=== PATIENT | female | born 1995 | race Caucasian/White ===

== ENCOUNTER 2017-01-05 17:34 | Emergency (ER) | payer OTHER ==
[2017-01-05 19:02] VITALS: BP 115/68; PULSE 83; RESP 18; TEMP 98.3
--- NOTE | 2017-01-05 19:08 | ED ---
General Adult HPI - General Chief complaint: Extremity Injury, Upper Stated complaint: ihs- crushing injury Time Seen by Provider: 01/05/17 19:02 Source: patient, RN notes reviewed Mode of arrival: ambulatory Limitations: no limitations - History of Present Illness Initial comments: 21-year-old female presents to the emergency department the chief complaint of bilateral index finger injury. Patient states that she got her fingers caught underneath a [place] lift today at work at work that her in to be seen. Patient states the top of both her index fingers have some discomfort. She is able to move them. There is no throbbing. Patient denies any numbness or tingling. Patient was concerned due to the continued pain and work made her come in so she is here to be seen. Pain is mild.Patient denies any recent fever, chills, shortness of breath, chest pain, back pain, abdominal pain, nausea vomiting, numbness or tingling, dysuria or hematuria, constipation or diarrhea, headaches or visual changes, or any other current symptoms. - Related Data Home Medications Medication Instructions Recorded Confirmed No Known Home Medications [No 01/05/17 01/05/17 Known Home Medications] Allergies Allergy/AdvReac Type Severity Reaction Status Date / Time No Known Allergies Allergy Verified 01/05/17 19:21 Review of Systems ROS Statement: Those systems with pertinent positive or pertinent negative responses have been documented in the HPI. ROS Other: All systems not noted in ROS Statement are negative. Past Medical History Past Medical History: No Reported History History of Any Multi-Drug Resistant Organisms: None Reported Past Surgical History: No Surgical Hx Reported Past Psychological History: No Psychological Hx Reported Smoking Status: Never smoker Past Alcohol Use History: None Reported Past Drug Use History: None Reported General Exam - General Exam Comments Initial Comments: General: The patient is awake and alert, in no distress, and does not appear acutely ill. Neck: The neck is supple, there is no tenderness. Cardiovascular: There is a regular rate and rhythm. No murmur, rub or gallop is appreciated. Respiratory: Lungs are clear to auscultation, respirations are non-labored, breath sounds are equal. No wheezes, stridor, rales, or rhonchi. Musculoskeletal: Sensation intact with 2+ pulses at bilateral upper extremityfull range of motion of bilateral hands and all digits. Patient has minimal superficial tenderness to the distal aspect of the bilateral index fingers.Neurological: CN II-XII intact, There are no obvious motor or sensory deficits. Coordination appears grossly intact. Speech is normal. Skin: Skin is warm and dry and no rashes or lesions are noted. Psychiatric: Normal mood and affect. Limitations: no limitations Course Vital Signs 01/05/17 19:00 Temperature 98.3 F Pulse Rate 83 Respiratory 18 Rate Blood Pressure 115/68 O2 Sat by Pulse 97 Oximetry Medical Decision Making - Medical Decision Making 21-year-old female presents to the emergency department with a chief complaint of bilateral finger contusion. This time we discussed care we discussed follow- up we discussed return parameters all patient's questions. She stated she understood and she is in agreement with this plan. She will be discharged. - Radiology Data Radiology results: image reviewed Interpreted by me: Interpreted by me: Bilateral index finger xray: 5 view, no fracture, no dislocation, no bony lesions, no foreign bodies, no soft tissue damage. Waiting official radiology read. Disposition Clinical Impression: Finger contusion Disposition: HOME SELF-CARE Condition: Stable Instructions: Contusion in Adults (ED) Additional Instructions: Please use medication as discussed. Please follow up with family doctor if symptoms have not improved over the next two days. Please return to the emergency room if your symptoms increase or worsen or for any other concerns. Referrals: Gina Doss DO [Primary Care Provider] - 1-2 days Time of Disposition: 19:42
--- NOTE | 2017-01-05 20:18 | XR ---
EXAMINATION TYPE: XR finger or thumb bilateral DATE OF EXAM: 01/05/2017 COMPARISON: NONE HISTORY: Pain TECHNIQUE: 6 views FINDINGS: 3 views of each index finger were obtained. I see no fracture nor dislocation. Joint spaces are normal. There are no erosions. IMPRESSION: Normal exam. No sign of inflammatory arthritis.
== END 2017-01-05 19:54 | disposition home or self-care (01) ==
LOC: MERGE 17:34 → EC 17:34
DX: S60.022A Contusion of left index finger without damage to nail, initial encounter (principal); S60.021A Contusion of right index finger without damage to nail, initial encounter; W23.0XXA Caught, crushed, jammed, or pinched between moving objects, initial encounter; Y93.89 Activity, other specified; Y92.69 Other specified industrial and construction area as the place of occurrence of the external cause; Y99.0 Civilian activity done for income or pay
CPT/HCPCS: 99283

== ENCOUNTER 2017-04-21 21:13 | Emergency (ER) | payer OTHER ==
[2017-04-21] MEDS ORDERED: SODIUM CHLORIDE 0.9% 500 ML IV ONE (22:33)
[2017-04-21 23:10] LABS: Basophils % (A) 1 %; Eosinophils # (A) 0.1 k/uL (0-0.7); Eosinophils % (A) 1 %; HCT 38.5 % (34.0-46.0); Lymphocytes # (A) 2.3 k/uL (1.0-4.8); Lymphocytes % (A) 36 %; MCH 29.6 pg (25.0-35.0); MCHC 33.7 g/dL (31.0-37.0); Mean Platelet Volume 6.5; Monocytes # (A) 0.2 k/uL (0-1.0); Monocytes % (A) 4 %; Neutrophils # (A) 3.6 k/uL (1.3-7.7); Neutrophils % (A) 56 %; Platelet Count 318 k/uL (150-450); RBC 4.38 m/uL (3.80-5.40); RDW 12.2 % (11.5-15.5); WBC 6.3 k/uL (4.0-11.0)
[2017-04-21 23:16] LABS: Appearance,Urine Cloudy (Clear); Bacteria,Urine Occasional /hpf; Bilirubin,Urine Negative (Negative); Blood,Urine Moderate (Negative); Cellular Casts,Urine 1 /lpf (0); Color,Urine Yellow; Glucose,Urine (UA) Negative (Negative); Granular Casts,Urine 1 /lpf (0); Hyaline Casts,Urine 7 /lpf (0-2); Ketones,Urine Negative (Negative); Leukocyte Esterase,Urine Negative (Negative); Mucus,Urine Few /hpf; Nitrite,Urine Negative (Negative); Protein,Urine 3+ (Negative); RBC,Urine 46 /hpf (0-5); Specific Gravity,Urine 1.022 (1.001-1.035); Squamous Epithelial Cell,Urine 7 /hpf (0-4); Urobilinogen,Urine <2.0 mg/dL (<2.0); WBC,Urine 9 /hpf (0-5)
[2017-04-21 23:28] LABS: ALT 24 U/L (9-52); AST 19 U/L (14-36); Albumin 2.4 g/dL (3.5-5.0); Alkaline Phosphatase 68 U/L (38-126); Amylase 44 U/L (30-110); Anion Gap 2 mmol/L; Blood Urea Nitrogen 17 mg/dL (7-17); Calcium 8.4 mg/dL (8.4-10.2); Carbon Dioxide 25 mmol/L (22-30); Chloride 109 mmol/L (98-107); Glucose 85 mg/dL (74-99); Lipase 42 U/L (23-300); Potassium 3.5 mmol/L (3.5-5.1); Sodium 136 mmol/L (137-145); Total Bilirubin <0.1 mg/dL (0.2-1.3); Total Protein 4.8 g/dL (6.3-8.2)
[2017-04-21 23:31] LABS: Amphetamine Screen,Urine Not Detected (NotDetected); Barbiturate Screen,Urine Not Detected (NotDetected); Benzodiazepines Screen,Urine Not Detected (NotDetected); Cocaine Screen,Urine Not Detected (NotDetected); Methadone Screen, Urine Not Detected (NotDetected); Opiate Screen,Urine Not Detected (NotDetected); Oxycodone Screen, Urine Not Detected (NotDetected); Phencyclidine Screen,Urine Not Detected (NotDetected); Tricyclic Antidepressant,Urine Not Detected (NotDetected); Urn Cannabinoid Scrn Not Detected (NotDetected)
[2017-04-22] MEDS ORDERED: cefTRIAXone 250 MG VIAL IM STA (00:34)
[2017-04-22] MEDS ORDERED: AZITHROMYCIN 500 MG TAB PO STA (00:34)
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
[2017-04-22 03:07] VITALS: BP 112/59; PULSE 82; RESP 18; TEMP 97.9
[2017-04-22 12:41] LABS: HIV AB P24 Non-Reactive (Non-Reactive); HIV P24 AG Non-Reactive (Non-Reactive)
== END 2017-04-22 03:05 | disposition home or self-care (01) ==
LOC: EC 21:13
DX: T76.21XA Adult sexual abuse, suspected, initial encounter (principal); R10.84 Generalized abdominal pain; R79.9 Abnormal finding of blood chemistry, unspecified; Z87.891 Personal history of nicotine dependence
CPT/HCPCS: 36415; 80053; 80306; 81001; 81025; 82150; 83690; 85025; 87040; 87390; 96360; 96361; 96372; 99284

== ENCOUNTER 2018-05-05 21:17 | Emergency (ER) | payer OTHER ==
[2018-05-05 21:24] VITALS: TEMP 98.2
[2018-05-05 21:36] LABS: Glucose,Whole Blood 84 mg/dL (75-99)
[2018-05-05] MEDS ORDERED: SODIUM CHLORIDE 0.9% 500 ML 500 ML IV STA (22:06)
[2018-05-05 22:23] LABS: Basophils % (A) 1 %; Eosinophils # (A) 0.1 k/uL (0-0.7); Eosinophils % (A) 1 %; HCT 35.6 % (34.0-46.0); HGB 12.3 gm/dL (11.4-16.0); Lymphocytes # (A) 2.7 k/uL (1.0-4.8); Lymphocytes % (A) 35 %; MCH 30.8 pg (25.0-35.0); MCHC 34.5 g/dL (31.0-37.0); MCV 89.3 fL (80.0-100.0); Mean Platelet Volume 6.8; Monocytes # (A) 0.3 k/uL (0-1.0); Monocytes % (A) 4 %; Neutrophils # (A) 4.3 k/uL (1.3-7.7); Neutrophils % (A) 57 %; Platelet Count 296 k/uL (150-450); RBC 3.99 m/uL (3.80-5.40); RDW 12.2 % (11.5-15.5); WBC 7.6 k/uL (3.8-10.6)
[2018-05-05 22:26] LABS: ALT 38 U/L (9-52); AST 27 U/L (14-36); Albumin 2.3 g/dL (3.5-5.0); Alkaline Phosphatase 60 U/L (38-126); Anion Gap 2 mmol/L; Blood Urea Nitrogen 15 mg/dL (7-17); Calcium 8.3 mg/dL (8.4-10.2); Carbon Dioxide 25 mmol/L (22-30); Chloride 110 mmol/L (98-107); Glucose 87 mg/dL (74-99); Magnesium 1.7 mg/dL (1.6-2.3); Potassium 3.6 mmol/L (3.5-5.1); Sodium 137 mmol/L (137-145); Total Bilirubin 0.2 mg/dL (0.2-1.3); Total Protein 4.5 g/dL (6.3-8.2)
[2018-05-05 22:30] LABS: D-Dimer 0.31 mg/L FEU (<0.60); Prothrombin Time 10.4 sec (9.0-12.0)
--- NOTE | 2018-05-05 22:34 | ED ---
Chest Pain HPI - General Chief Complaint: Chest Pain Stated Complaint: Chest pain Time Seen by Provider: 05/05/18 21:44 Source: patient Mode of arrival: ambulatory Limitations: no limitations - History of Present Illness Initial Comments: 22-year-old female patient presents to the emergency department today for evaluation of chest pressure and shortness of breath. Patient states that symptoms started early today and have not subsided. Patient states she did have low blood sugar around 70 this afternoon. Patient states that she did attempt to take a shower and to relax but did not seem to help. Patient denies any cough or congestion. Denies any fevers or chills with this. Patient states she has been nauseated but has not vomited. She denies any abdominal pain. Patient denies any recent rash, diarrhea, constipation, back pain, numbness, tingling, dizziness, weakness, hematuria, dysuria, urinary urgency, urinary frequency, visual changes, or any other complaints. - Related Data Previous Rx's Medication Instructions Recorded Famotidine [Pepcid] 20 mg PO DAILY #30 tablet 05/05/18 Allergies Allergy/AdvReac Type Severity Reaction Status Date / Time No Known Allergies Allergy Verified 05/05/18 22:28 Review of Systems ROS Statement: Those systems with pertinent positive or pertinent negative responses have been documented in the HPI. ROS Other: All systems not noted in ROS Statement are negative. EKG Findings - EKG Comments: EKG Findings:: EKG obtained at 2156 shows normal sinus rhythm with a rightward axis and incomplete right bundle branch block. Ventricular rate is 71, UT interval 116, QRS duration 96, QT 374, QTC 406. No evidence of ST elevation or depression. Past Medical History Past Medical History: No Reported History Additional Past Medical History / Comment(s): Alport syndrome History of Any Multi-Drug Resistant Organisms: None Reported Past Surgical History: No Surgical Hx Reported Past Psychological History: No Psychological Hx Reported Smoking Status: Former smoker Past Alcohol Use History: Occasional Past Drug Use History: None Reported General Exam Limitations: no limitations General appearance: alert, in no apparent distress, other (This a well-developed , well-nourished adult female patient in no acute distress. Vital signs upon presentation are temperature 98.2F, pulse 84, respirations 20, blood pressure 119/82, pulse ox 100% on room air.) Eye exam: Present: normal appearance, PERRL, EOMI. Absent: scleral icterus, conjunctival injection, periorbital swelling ENT exam: Present: normal exam, normal oropharynx, mucous membranes moist Respiratory exam: Present: normal lung sounds bilaterally. Absent: respiratory distress, wheezes, rales, rhonchi, stridor Cardiovascular Exam: Present: regular rate, normal rhythm, normal heart sounds. Absent: systolic murmur, diastolic murmur, rubs, gallop, clicks GI/Abdominal exam: Present: soft, tenderness (Midepigastric tenderness), normal bowel sounds. Absent: distended, guarding, rebound, rigid Neurological exam: Present: alert, oriented X3, CN II-XII intact Psychiatric exam: Present: normal affect, normal mood Skin exam: Present: warm, dry, intact, normal color. Absent: rash Course Vital Signs 05/05/18 05/06/18 21:19 00:08 Temperature 98.2 F 98.2 F Pulse Rate 84 74 Respiratory 20 16 Rate Blood Pressure 119/82 117/84 O2 Sat by Pulse 100 100 Oximetry Chest Pain MDM - [facility] RADIOLOGY:Two-view x-ray of the chest is obtained. Report was reviewed in its entirety. Impression by Dr. Calderón shows no acute findings. MDM: 22-year-old female patient presents to the emergency department today for evaluation of chest pressure and dizziness. Physical examination is unremarkable. She is neurologically intact with no focal deficits. Labs reviewed and are unremarkable. Chest x-ray is unremarkable. Patient did have some epigastric tenderness and did report some nausea and decreased appetite. We will start Pepcid for possibility of gastritis versus GERD. She is instructed to follow-up with her primary care physician to discuss this as well as possible referral to cardiology. Return parameters were discussed in detail. She verbalizes understanding and agrees with this plan. Disposition Clinical Impression: Chest pain Disposition: HOME SELF-CARE Condition: Good Instructions (If sedation given, give patient instructions): Chest Pain (ED) Additional Instructions: Follow up with primary care physician for recheck and to discuss possible referral to cardiology. Eat small frequent meals throughout the day. Return to the emergency department immediately for any new, worsening, or concerning symptoms. Prescriptions: Famotidine [Pepcid] 20 mg PO DAILY #30 tablet Is patient prescribed a controlled substance at d/c from ED?: No Referrals: Gina Doss DO [Primary Care Provider] - 1-2 days Time of Disposition: 23:27
[2018-05-05 22:36] LABS: Creatine Kinase 127 U/L (30-135)
[2018-05-05 22:50] LABS: Creatine Kinase MB 0.4 ng/mL (0.0-2.4); Troponin I <0.012 ng/mL (0.000-0.034)
--- NOTE | 2018-05-05 22:58 | XR ---
EXAM: XR Chest, 2 Views CLINICAL HISTORY: Chest pain TECHNIQUE: Frontal and lateral views of the chest. COMPARISON: No relevant prior studies available. FINDINGS: Lungs: Question tiny calcified pulmonary nodules within the right lung. Otherwise, lungs are clear. Pleural space: Unremarkable. No pneumothorax. Heart: Unremarkable. No cardiomegaly. Mediastinum: Unremarkable. Bones/joints: Unremarkable. IMPRESSION: No acute findings.
[2018-05-06 00:08] VITALS: BP 117/84; PULSE 74; RESP 16
== END 2018-05-06 00:09 | disposition home or self-care (01) ==
LOC: EC 21:17
DX: R07.89 Other chest pain (principal); R06.02 Shortness of breath; R11.0 Nausea; R42 Dizziness and giddiness; R10.816 Epigastric abdominal tenderness; R63.0 Anorexia; Z87.891 Personal history of nicotine dependence
CPT/HCPCS: 36415; 71046; 80053; 81025; 82550; 82553; 83735; 84484; 85025; 85379; 85610; 85730; 93005; 99285

== ENCOUNTER 2018-06-11 08:13 | Observation (INO) | payer OTHER ==
[2018-06-11 08:42] LABS: Basophils % (A) 0 %; Eosinophils # (A) 0.1 k/uL (0-0.7); Eosinophils % (A) 2 %; HCT 34.9 % (34.0-46.0); HGB 12.1 gm/dL (11.4-16.0); Lymphocytes # (A) 0.6 k/uL (1.0-4.8); Lymphocytes % (A) 10 %; MCHC 34.6 g/dL (31.0-37.0); MCV 86.9 fL (80.0-100.0); Mean Platelet Volume 6.4; Monocytes # (A) 0.4 k/uL (0-1.0); Monocytes % (A) 6 %; Neutrophils % (A) 81 %; Platelet Count 314 k/uL (150-450); RBC 4.02 m/uL (3.80-5.40); RDW 12.2 % (11.5-15.5); WBC 6.2 k/uL (3.8-10.6)
[2018-06-11 08:45] LABS: Appearance,Urine Cloudy (Clear); Bilirubin,Urine Negative (Negative); Blood,Urine Moderate (Negative); Color,Urine Yellow; Glucose,Urine (UA) Negative (Negative); Ketones,Urine 1+ (Negative); Leukocyte Esterase,Urine Negative (Negative); Mucus,Urine Many /hpf; Nitrite,Urine Negative (Negative); PH, Urine 6.5 (5.0-8.0); Protein,Urine 3+ (Negative); RBC,Urine 76 /hpf (0-5); Specific Gravity,Urine 1.027 (1.001-1.035); Squamous Epithelial Cell,Urine 4 /hpf (0-4)
[2018-06-11 08:52] LABS: ALT 28 U/L (9-52); AST 24 U/L (14-36); Albumin 2.3 g/dL (3.5-5.0); Alkaline Phosphatase 59 U/L (38-126); Anion Gap 3 mmol/L; Blood Urea Nitrogen 11 mg/dL (7-17); Calcium 7.8 mg/dL (8.4-10.2); Carbon Dioxide 22 mmol/L (22-30); Chloride 109 mmol/L (98-107); Glucose 89 mg/dL (74-99); Potassium 3.7 mmol/L (3.5-5.1); Sodium 134 mmol/L (137-145); Total Bilirubin 0.4 mg/dL (0.2-1.3); Total Protein 4.5 g/dL (6.3-8.2)
--- NOTE | 2018-06-11 08:56 | ED ---
Abdominal Pain HPI - General Chief Complaint: Abdominal Pain Stated Complaint: Abd Pain Time Seen by Provider: 06/11/18 08:24 Source: patient, RN notes reviewed, old records reviewed Mode of arrival: ambulatory Limitations: no limitations - History of Present Illness Initial Comments: Patient is a 22-year-old female presents emergency department today with concerns for cramping and early . Patient states that she had a sharp cramping pain yesterday evening. It has subsided somewhat at this time. Patient states this her first . Patient reports that she is a proximally 4 weeks . Patient denies any vaginal bleeding this time. Patient states that she has no dysuria. 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 Patient states that she has no other complaints at this time. Does not have an PHYSICAL LABORATORY ASSISTANT. - Related Data Home Medications Medication Instructions Recorded Confirmed Wwf-Sxha-Xcohp Acid 1 cap PO HS 06/11/18 06/11/18 [-U Capsule (formulary)] Allergies Allergy/AdvReac Type Severity Reaction Status Date / Time No Known Allergies Allergy Verified 06/11/18 08:58 Review of Systems ROS Statement: Those systems with pertinent positive or pertinent negative responses have been documented in the HPI. ROS Other: All systems not noted in ROS Statement are negative. Past Medical History Past Medical History: No Reported History Additional Past Medical History / Comment(s): Alport syndrome History of Any Multi-Drug Resistant Organisms: None Reported Past Surgical History: No Surgical Hx Reported Past Psychological History: No Psychological Hx Reported Smoking Status: Former smoker Past Alcohol Use History: Rare Past Drug Use History: None Reported General Exam - General Exam Comments Initial Comments: 22-year-old female. Alert and oriented. No distress. Limitations: no limitations General appearance: alert, in no apparent distress Head exam: Present: atraumatic, normocephalic, normal inspection Eye exam: Present: normal appearance, PERRL, EOMI. Absent: scleral icterus, conjunctival injection, periorbital swelling ENT exam: Present: normal exam, mucous membranes moist Neck exam: Present: normal inspection. Absent: tenderness, meningismus, lymphadenopathy Respiratory exam: Present: normal lung sounds bilaterally. Absent: respiratory distress, wheezes, rales, rhonchi, stridor Cardiovascular Exam: Present: regular rate, normal rhythm, normal heart sounds. Absent: systolic murmur, diastolic murmur, rubs, gallop, clicks GI/Abdominal exam: Present: soft, normal bowel sounds. Absent: distended, tenderness, guarding, rebound, rigid External exam: Present: normal external exam Speculum exam: Present: normal speculum exam By manual exam: Present: normal by manual exam. Absent: cervical motion tenderness, adnexal tenderness Extremities exam: Present: normal inspection, full ROM, normal capillary refill. Absent: tenderness, pedal edema, joint swelling, calf tenderness Back exam: Present: normal inspection Neurological exam: Present: alert, oriented X3, CN II-XII intact Psychiatric exam: Present: normal affect, normal mood Skin exam: Present: warm, dry, intact, normal color. Absent: rash Course Vital Signs 06/11/18 06/11/18 08:16 11:14 Temperature 98.4 F Pulse Rate 105 H 92 Respiratory 18 16 Rate Blood Pressure 119/79 130/79 O2 Sat by Pulse 99 97 Oximetry Medical Decision Making - Medical Decision Making 22-year-old female, . She is reportedly 4 weeks . At this time P atient claims some crampy pain yesterday. She has no abdominal tenderness on exam. Blood work was stable. She has a history of Alport syndrome consistent with hematuria. Pelvic exam shows no bleeding no adnexal tenderness. Ultrasound shows right sided cystic area and free fluid concern for possibility of ectopic. HCG level is 8790. Patient is Rh+. At this time Patient will be discharged after discussing the case with Dr. Rebollar. He recommends at this time to hold off on methotrexate the Patient repeat her hCG level in 2 days and follow-up with him in the office. Family was informed of this. Patient given a note for work. - Lab Data Result diagrams: 06/11/18 08:33 06/11/18 08:33 Lab Results 06/11/18 06/11/18 06/11/18 Range/Units 08:27 08:27 08:33 WBC (3.8-10.6) k/uL RBC (3.80-5.40) m/uL Hgb (11.4-16.0) gm/dL Hct (34.0-46.0) % MCV (80.0-100.0) fL MCH (25.0-35.0) pg MCHC (31.0-37.0) g/dL RDW (11.5-15.5) % Plt Count (150-450) k/uL Neutrophils % % Lymphocytes % % Monocytes % % Eosinophils % % Basophils % % Neutrophils # (1.3-7.7) k/uL Lymphocytes # (1.0-4.8) k/uL Monocytes # (0-1.0) k/uL Eosinophils # (0-0.7) k/uL Basophils # (0-0.2) k/uL Sodium (137-145) mmol/L Potassium (3.5-5.1) mmol/L Chloride (98-107) mmol/L Carbon Dioxide (22-30) mmol/L Anion Gap mmol/L BUN (7-17) mg/dL Creatinine (0.52-1.04) mg/dL Est GFR (CKD-EPI)AfAm (>60 ml/min/1.73 sqM) Est GFR (CKD-EPI)NonAf (>60 ml/min/1.73 sqM) Glucose (74-99) mg/dL Calcium (8.4-10.2) mg/dL Total Bilirubin (0.2-1.3) mg/dL AST (14-36) U/L ALT (9-52) U/L Alkaline Phosphatase (38-126) U/L Total Protein (6.3-8.2) g/dL Albumin (3.5-5.0) g/dL HCG, Quant mIU/mL Urine Color Yellow Urine Appearance Cloudy H (Clear) Urine pH 6.5 (5.0-8.0) Ur Specific [place] 1.027 (1.001-1.035) Urine Protein 3+ H (Negative) Urine Glucose (UA) Negative (Negative) Urine Ketones 1+ H (Negative) Urine Blood Moderate H (Negative) Urine Nitrite Negative (Negative) Urine Bilirubin Negative (Negative) Urine Urobilinogen 3.0 (<2.0) mg/dL Ur Leukocyte Esterase Negative (Negative) Urine RBC 76 H (0-5) /hpf Urine WBC 4 (0-5) /hpf Ur Squamous Epith Cells 4 (0-4) /hpf Urine Mucus Many H (None) /hpf Urine HCG, Qual Detected (Not Detectd) Trichomonas Ag (Rapid) (Negative) Blood Type O Positive Blood Type Recheck [facility] ONLY 06/11/18 06/11/18 06/11/18 Range/Units 08:33 08:33 10:50 WBC 6.2 (3.8-10.6) k/uL RBC 4.02 (3.80-5.40) m/uL Hgb 12.1 (11.4-16.0) gm/dL Hct 34.9 (34.0-46.0) % MCV 86.9 (80.0-100.0) fL MCH 30.0 (25.0-35.0) pg MCHC 34.6 (31.0-37.0) g/dL RDW 12.2 (11.5-15.5) % Plt Count 314 (150-450) k/uL Neutrophils % 81 % Lymphocytes % 10 % Monocytes % 6 % Eosinophils % 2 % Basophils % 0 % Neutrophils # 5.0 (1.3-7.7) k/uL Lymphocytes # 0.6 L (1.0-4.8) k/uL Monocytes # 0.4 (0-1.0) k/uL Eosinophils # 0.1 (0-0.7) k/uL Basophils # 0.0 (0-0.2) k/uL Sodium 134 L (137-145) mmol/L Potassium 3.7 (3.5-5.1) mmol/L Chloride 109 H (98-107) mmol/L Carbon Dioxide 22 (22-30) mmol/L Anion Gap 3 mmol/L BUN 11 (7-17) mg/dL Creatinine 0.54 (0.52-1.04) mg/dL Est GFR (CKD-EPI)AfAm >90 (>60 ml/min/1.73 sqM) Est GFR (CKD-EPI)NonAf >90 (>60 ml/min/1.73 sqM) Glucose 89 (74-99) mg/dL Calcium 7.8 L (8.4-10.2) mg/dL Total Bilirubin 0.4 (0.2-1.3) mg/dL AST 24 (14-36) U/L ALT 28 (9-52) U/L Alkaline Phosphatase 59 (38-126) U/L Total Protein 4.5 L (6.3-8.2) g/dL Albumin 2.3 L (3.5-5.0) g/dL HCG, Quant 8769.8 mIU/mL Urine Color Urine Appearance (Clear) Urine pH (5.0-8.0) Ur Specific [place] (1.001-1.035) Urine Protein (Negative) Urine Glucose (UA) (Negative) Urine Ketones (Negative) Urine Blood (Negative) Urine Nitrite (Negative) Urine Bilirubin (Negative) Urine Urobilinogen (<2.0) mg/dL Ur Leukocyte Esterase (Negative) Urine RBC (0-5) /hpf Urine WBC (0-5) /hpf Ur Squamous Epith Cells (0-4) /hpf Urine Mucus (None) /hpf Urine HCG, Qual (Not Detectd) Trichomonas Ag (Rapid) Negative (Negative) Blood Type Blood Type Recheck - Radiology Data Radiology results: report reviewed Findings are concerning for but not diagnostic of an ectopic moderate amount of free fluid in the pelvis small fluid collection in the endometrium without yolk sac or pole. The Patient with any she G is nearly 9000. [place] hCG in short-term follow-up ultrasound could be performed Patient stable. Disposition Clinical Impression: Threatened miscarriage in early Disposition: HOME SELF-CARE Condition: Good Additional Instructions: and advised to rest, no heavy lifting and pelvic rest. Patient should have close follow-up with PHYSICAL LABORATORY ASSISTANT on Thursday. Repeat hCG levels in the morning. Is patient prescribed a controlled substance at d/c from ED?: No Referrals: Gina Doss DO [Primary Care Provider] - 1-2 days Kvng Espinoza MD [STAFF PHYSICIAN] - 1-2 days Elaine Delatorre DO [Doctor of Osteopathic Medicine] - 1-2 days Time of Disposition: 11:44
[2018-06-11 09:08] LABS: HCG,Quantitative Serum 8769.8 mIU/mL
--- NOTE | 2018-06-11 10:25 | US ---
EXAMINATION TYPE: Transabdominal DATE OF EXAM: 06/11/2018 9:59 AM COMPARISON: NONE CLINICAL HISTORY: Pain. Pelvic pain, positive test EXAM PERFORMED: Transvaginal (TV) and Transabdominal (TA) EXAM MEASUREMENTS: GESTATIONAL AGE / DATING Physician Established: Not yet established Dates by LMP: (4 weeks/5 days) EDC: 02/13/2019 Dates by First Scan: No previous this is first scan Dates by Current Scan for: No pole or yolk sac visualized seen at this time MATERNAL ANATOMY Uterus: 7.7 x 3.7 x 4.7 cm Right Ovary: 5.1 x 4.0 x 3.9 cm Left Ovary: 3.0 x 0.9 x 1.1 cm Post CDS / Adnexa: Moderate amount of Free fluid visualized Presence of free fluid: Yes Presence of corpus luteal cyst: Right ovary measuring 3.1 x 2.8 x 2.7 cm Presence of subchorionic bleed: No GESTATION / SURVEY IUP: No pole or yolk sac visualized on today's exam. Possible early gestational sac visualized within the endometrium measuring 0.6 cm, too small to date vs other. Date of LMP: 05/09/2018 Beta HcG (if available): 8769 No pole or yolk sac visualized on today's exam. Possible early gestational sac visualized withi n the endometrium measuring 0.6 cm, too small to date vs other. Right ovary has multiple cystic areas visualized. Largest simple cyst visualized measuring 3.2 x 2.6 x 2.9 cm. Thick walled cystic area wi th internal septations visualized measuring 3.1 x 2.8 x 2.7 cm IMPRESSION: Findings are concerning for but are not diagnostic of an ectopic as there is a moderate lenin unt of free fluid in the pelvis and only small fluid collection in the endometrium without yolk sac o r pole in this patient with a beta-hCG of nearly 9000. Findings were communicated with the [facility] provider and approximately [phone] on 06/11/[address] Samuels. Trending beta hCG and short-term repea t follow-up ultrasound could be performed if the patient is clinically stable.
[2018-06-11] MEDS ORDERED: SODIUM CHLORIDE 0.9% 1,000 ML IV SCH (14:45)
[2018-06-11] MEDS ORDERED: ONDANSETRON 4 MG/2 ML VIAL IVP PRN (14:56)
[2018-06-11] MEDS ORDERED: IBUPROFEN 400 MG TAB PO PRN (14:56)
[2018-06-11] MEDS ORDERED: MORPHINE SULFATE 4 MG/ML SYRINGE IV PRN (14:56)
[2018-06-11] MEDS ORDERED: NALOXONE 0.4 MG/ML 1 ML VIAL IV PRN (14:56)
[2018-06-11] MEDS ORDERED: ACETAMINOPHEN TAB 325 MG TAB PO PRN (14:56)
--- NOTE | 2018-06-11 14:56 | ED ---
Medical Decision Making - Medical Decision Making After Dr. Rebollar reviewed the computed tomography scan he requested the Patient return to the ER for admission for repeat CBCs for the free fluid in her pelvis. On reevaluation after she returned she complains of no significant pain. She states that she is just hungry. No vaginal discharge or bleeding. Patient was started with IV fluids and a repeat CBC was completed. Patient will be admitted at this time under observation to Dr. Espinoza for possibility of ectopic at this time. He is an initial evaluation he requested no methotrexate be ordered. - Lab Data Result diagrams: 06/11/18 08:33 06/11/18 08:33 Lab Results 06/11/18 06/11/18 06/11/18 Range/Units 08:27 08:27 08:33 WBC (3.8-10.6) k/uL RBC (3.80-5.40) m/uL Hgb (11.4-16.0) gm/dL Hct (34.0-46.0) % MCV (80.0-100.0) fL MCH (25.0-35.0) pg MCHC (31.0-37.0) g/dL RDW (11.5-15.5) % Plt Count (150-450) k/uL Neutrophils % % Lymphocytes % % Monocytes % % Eosinophils % % Basophils % % Neutrophils # (1.3-7.7) k/uL Lymphocytes # (1.0-4.8) k/uL Monocytes # (0-1.0) k/uL Eosinophils # (0-0.7) k/uL Basophils # (0-0.2) k/uL Sodium (137-145) mmol/L Potassium (3.5-5.1) mmol/L Chloride (98-107) mmol/L Carbon Dioxide (22-30) mmol/L Anion Gap mmol/L BUN (7-17) mg/dL Creatinine (0.52-1.04) mg/dL Est GFR (CKD-EPI)AfAm (>60 ml/min/1.73 sqM) Est GFR (CKD-EPI)NonAf (>60 ml/min/1.73 sqM) Glucose (74-99) mg/dL Calcium (8.4-10.2) mg/dL Total Bilirubin (0.2-1.3) mg/dL AST (14-36) U/L ALT (9-52) U/L Alkaline Phosphatase (38-126) U/L Total Protein (6.3-8.2) g/dL Albumin (3.5-5.0) g/dL HCG, Quant mIU/mL Urine Color Yellow Urine Appearance Cloudy H (Clear) Urine pH 6.5 (5.0-8.0) Ur Specific [place] 1.027 (1.001-1.035) Urine Protein 3+ H (Negative) Urine Glucose (UA) Negative (Negative) Urine Ketones 1+ H (Negative) Urine Blood Moderate H (Negative) Urine Nitrite Negative (Negative) Urine Bilirubin Negative (Negative) Urine Urobilinogen 3.0 (<2.0) mg/dL Ur Leukocyte Esterase Negative (Negative) Urine RBC 76 H (0-5) /hpf Urine WBC 4 (0-5) /hpf Ur Squamous Epith Cells 4 (0-4) /hpf Urine Mucus Many H (None) /hpf Urine HCG, Qual Detected (Not Detectd) Trichomonas Ag (Rapid) (Negative) Blood Type O Positive Blood Type Recheck [facility] ONLY 06/11/18 06/11/18 06/11/18 Range/Units 08:33 08:33 10:50 WBC 6.2 (3.8-10.6) k/uL RBC 4.02 (3.80-5.40) m/uL Hgb 12.1 (11.4-16.0) gm/dL Hct 34.9 (34.0-46.0) % MCV 86.9 (80.0-100.0) fL MCH 30.0 (25.0-35.0) pg MCHC 34.6 (31.0-37.0) g/dL RDW 12.2 (11.5-15.5) % Plt Count 314 (150-450) k/uL Neutrophils % 81 % Lymphocytes % 10 % Monocytes % 6 % Eosinophils % 2 % Basophils % 0 % Neutrophils # 5.0 (1.3-7.7) k/uL Lymphocytes # 0.6 L (1.0-4.8) k/uL Monocytes # 0.4 (0-1.0) k/uL Eosinophils # 0.1 (0-0.7) k/uL Basophils # 0.0 (0-0.2) k/uL Sodium 134 L (137-145) mmol/L Potassium 3.7 (3.5-5.1) mmol/L Chloride 109 H (98-107) mmol/L Carbon Dioxide 22 (22-30) mmol/L Anion Gap 3 mmol/L BUN 11 (7-17) mg/dL Creatinine 0.54 (0.52-1.04) mg/dL Est GFR (CKD-EPI)AfAm >90 (>60 ml/min/1.73 sqM) Est GFR (CKD-EPI)NonAf >90 (>60 ml/min/1.73 sqM) Glucose 89 (74-99) mg/dL Calcium 7.8 L (8.4-10.2) mg/dL Total Bilirubin 0.4 (0.2-1.3) mg/dL AST 24 (14-36) U/L ALT 28 (9-52) U/L Alkaline Phosphatase 59 (38-126) U/L Total Protein 4.5 L (6.3-8.2) g/dL Albumin 2.3 L (3.5-5.0) g/dL HCG, Quant 8769.8 mIU/mL Urine Color Urine Appearance (Clear) Urine pH (5.0-8.0) Ur Specific [place] (1.001-1.035) Urine Protein (Negative) Urine Glucose (UA) (Negative) Urine Ketones (Negative) Urine Blood (Negative) Urine Nitrite (Negative) Urine Bilirubin (Negative) Urine Urobilinogen (<2.0) mg/dL Ur Leukocyte Esterase (Negative) Urine RBC (0-5) /hpf Urine WBC (0-5) /hpf Ur Squamous Epith Cells (0-4) /hpf Urine Mucus (None) /hpf Urine HCG, Qual (Not Detectd) Trichomonas Ag (Rapid) Negative (Negative) Blood Type Blood Type Recheck Disposition Clinical Impression: Threatened miscarriage in early , Free fluid in pelvis Disposition: ADMITTED IP TO THIS [facility] Condition: Good Instructions (If sedation given, give patient instructions): Threatened Miscarriage (ED) Additional Instructions: and advised to rest, no heavy lifting and pelvic rest. Patient should have close follow-up with [facility] on Thursday. Repeat hCG levels in the morning. Referrals: Kvng Espinoza MD [STAFF PHYSICIAN] - 1-2 days Elaine Delatorre DO [Doctor of Osteopathic Medicine] - 1-2 days Gina Doss DO [Primary Care Provider] - 1-2 days Time of Disposition: 14:55
[2018-06-11 15:14] LABS: Basophils % (A) 0 %; Eosinophils # (A) 0.1 k/uL (0-0.7); Eosinophils % (A) 2 %; HCT 33.8 % (34.0-46.0); HGB 11.9 gm/dL (11.4-16.0); Lymphocytes % (A) 19 %; MCHC 35.2 g/dL (31.0-37.0); MCV 88.1 fL (80.0-100.0); Mean Platelet Volume 6.8; Monocytes # (A) 0.3 k/uL (0-1.0); Monocytes % (A) 6 %; Neutrophils # (A) 3.8 k/uL (1.3-7.7); Neutrophils % (A) 72 %; Platelet Count 300 k/uL (150-450); RBC 3.84 m/uL (3.80-5.40); WBC 5.2 k/uL (3.8-10.6)
--- NOTE | 2018-06-11 17:46 | P.HPOB ---
History of Present Illness H&P Date: 06/11/18 Chief Complaint: Pelvic cramping This patient is a pleasant 22-year-old 1 para 0 female estimated gestational age 4 weeks and 5 days estimated date of confinement 02/13/2019 by last menstrual period who presented to the emergency department this morning with complaints of suprapubic cramping. Patient states that she is been with her boyfriend for approximately 1 year and they have been trying to get . Her last menstrual period was normal. She denies any vaginal bleeding but began having pelvic cramping and therefore went to the emergency department. Patient has appointment with Dr. Delatorre on June 30 for care but has not been seen by Dr. Delatorre as of yet. Patient had a beta hCG in the emergency department of 8769 and a transvaginal ultrasound which did show a possible early gestational sac within the endometrium that was 6 mm, however there was several cysts on the right ovary and a moderate amount of free fluid. CBC was normal. I was initially notified of these findings with the exception of the free fluid therefore I did ask the emergency department to have this patient admitted. Patient denies any pain at this time. She denies any bleeding. She's hungry. 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 Apparently she does have chronic hematuria from this. Review of Systems Constitutional: Reports as per HPI Genitourinary: Reports Menstruation: Reports amenorrhea Past Medical History Past Medical History: No Reported History Additional Past Medical History / Comment(s): Patient states she is a carrier of Alport syndrome but her father indicates she does have some clinical ramificat ions of that including hematuria or protein in her urine. History of Any Multi-Drug Resistant Organisms: None Reported Past Surgical History: No Surgical Hx Reported Past Psychological History: No Psychological Hx Reported Smoking Status: Former smoker Past Alcohol Use History: Rare Past Drug Use History: None Reported Medications and Allergies Home Medications Medication Instructions Recorded Confirmed Type Mzl-Bliq-Utdvr Acid 1 cap PO HS 06/11/18 06/11/18 History [-U Capsule (formulary)] Allergies Allergy/AdvReac Type Severity Reaction Status Date / Time No Known Allergies Allergy Verified 06/11/18 08:58 Exam Vital Signs Temp Pulse Resp BP Pulse Ox 06/11/18 11:14 92 16 130/79 97 06/11/18 08:16 98.4 F 105 H 18 119/79 99 Intake and Output 06/11/18 06/11/18 06/11/18 06:59 14:59 22:59 Other: Weight 45.359 kg - OBG Physical Exam Abdomen: bowel sounds normal, no diffuse tenderness, no bruit present, no guarding noted, no hepatomegaly, no splenomegaly, no mass Results Result Diagrams: 06/11/18 15:06 06/11/18 08:33 Abnormal Lab Results - Last 24 Hours (Table) 06/11/18 06/11/18 06/11/18 Range/Units 08:27 08:33 08:33 Hct (34.0-46.0) % Lymphocytes # 0.6 L (1.0-4.8) k/uL Sodium 134 L (137-145) mmol/L Chloride 109 H (98-107) mmol/L Calcium 7.8 L (8.4-10.2) mg/dL Total Protein 4.5 L (6.3-8.2) g/dL Albumin 2.3 L (3.5-5.0) g/dL Urine Appearance Cloudy H (Clear) Urine Protein 3+ H (Negative) Urine Ketones 1+ H (Negative) Urine Blood Moderate H (Negative) Urine RBC 76 H (0-5) /hpf Urine Mucus Many H (None) /hpf 06/11/18 Range/Units 15:06 Hct 33.8 L (34.0-46.0) % Lymphocytes # (1.0-4.8) k/uL Sodium (137-145) mmol/L Chloride (98-107) mmol/L Calcium (8.4-10.2) mg/dL Total Protein (6.3-8.2) g/dL Albumin (3.5-5.0) g/dL Urine Appearance (Clear) Urine Protein (Negative) Urine Ketones (Negative) Urine Blood (Negative) Urine RBC (0-5) /hpf Urine Mucus (None) /hpf Microbiology - Last 24 Hours (Table) 06/11/18 10:50 Genital Culture - Preliminary Vaginal Assessment and Plan Assessment: This is a pleasant 22-year-old 1 para 0 female 4 weeks and 5 days estimated gestation with pelvic cramping. Ultrasound does show some moderate free fluid and ovarian cysts in the right side. Patient is having no vaginal bleeding at this time is having 0 pelvic pain. Due to the free fluid I recommended hospitalization overnight and repeat CBC in the morning. I explained to the patient and her father that although this appears to be a possible early gestation given the beta hCG one cannot rule out a missed versus an ectopic . Since she is completely asymptomatic at this time are to continue with expectant management and observation. I am going to check a urine culture although it appears her urinalysis is a result of her Alport syndrome. (1) Pelvic pain affecting in first trimester, antepartum Current Visit: Yes Status: Acute Code(s): O26.891 - OTH RELATED CONDITIONS, FIRST TRIMESTER; R10.2 - PELVIC AND PERINEAL PAIN SNOMED Code(s): 031535504
[2018-06-12 06:22] LABS: Basophils % (A) 0 %; Eosinophils # (A) 0.1 k/uL (0-0.7); Eosinophils % (A) 3 %; HGB 11.1 gm/dL (11.4-16.0); Lymphocytes # (A) 1.2 k/uL (1.0-4.8); Lymphocytes % (A) 28 %; MCH 30.8 pg (25.0-35.0); MCHC 34.7 g/dL (31.0-37.0); MCV 88.8 fL (80.0-100.0); Mean Platelet Volume 7.1; Monocytes # (A) 0.2 k/uL (0-1.0); Monocytes % (A) 6 %; Neutrophils # (A) 2.6 k/uL (1.3-7.7); Neutrophils % (A) 61 %; Platelet Count 278 k/uL (150-450); RDW 12.5 % (11.5-15.5); WBC 4.2 k/uL (3.8-10.6)
--- NOTE | 2018-06-12 07:06 | P.PN ---
Progress Note - Text Progress Note Date: 06/12/18 Hospital day #2. Patient is resting overnight and slept. She is having no pain. Vital signs are stable she is afebrile. Abdomen soft nontender. She is having no bleeding. CBC is stable. My impression this is a probable early intrauterine however we cannot rule out a threatened versus ectopic . Patient is very stable and therefore be discharged home follow up with a beta hCG in [address] Delatorre later in that day as well. I gave her strict instructions to call should any significant pain or vaginal bleeding to return.
--- NOTE | 2018-06-12 07:09 | P.DS ---
Providers Date of admission: 06/11/18 15:22 Expected date of discharge: 06/12/18 Attending physician: Kvng Espinoza Primary care physician: Gina Doss - Discharge Diagnosis(es) (1) Pelvic pain affecting in first trimester, antepartum Current Visit: Yes Status: Acute Hospital Course: Please see dictated H&P for intimate details of this patient's admission. Brief summary this is a 22-year-old 1 para 0 female for an eye half weeks gestation admitted through the emergency department for concerns of possible ectopic versus early . Patient is admitted and is completely stable without significant pain. Patient will be discharged home follow up with Dr. Delatorre in 2 days and repeat beta-hCG. I gave her strict instructions to call should any significant pain or significant vaginal bleeding. Patient Condition at Discharge: Good Plan - Discharge Summary New Discharge Prescriptions: No Action Jrq-Pwyd-Siwhw Acid [-U Capsule (formulary)] 1 cap PO HS Discharge Medication List Tml-Irgb-Bywhi Acid [-U Capsule (formulary)] 1 cap PO HS 06/11/18 [History] Follow up Appointment(s)/Referral(s): Gina Doss DO [Primary Care Provider] - 1-2 days Elaine Delatorre DO [Doctor of Osteopathic Medicine] - 1-2 days (Please see Dr. Delatorre as scheduled on Thursday at 1:30. Repeat beta hCG in the morning prior to this.) Ambulatory/Diagnostic Orders: Miscellaneous Lab Order [LAB.AMB] Time Frame: 2 Days, Location: None Selected Patient Instructions/Handouts: Threatened Miscarriage (ED) Activity/Diet/Wound Care/Special Instructions: Advised to rest, no heavy lifting and pelvic rest. Patient should have close follow-up with [facility] on Thursday. Repeat hCG levels in the morning. Discharge Disposition: HOME SELF-CARE
[2018-06-12 08:33] VITALS: BP 110/68; PULSE 78; RESP 17; TEMP 98.7
[2018-06-12] MEDS ORDERED: PANTOPRAZOLE 40 MG/10 ML VIAL IV SCH (09:00)
[2018-06-14 13:05] LABS: C. trachomatis,PCR Negative (Neg,Equiv); Chlamydia trachomatis Source Vagina
[2018-06-14 13:13] LABS: N. gonorrhoeae,PCR Negative (Neg,Equiv); Neisseria Source Vagina
== END 2018-06-12 08:35 | disposition home or self-care (01) ==
LOC: EC 08:13 → 6PED 15:22 → 4FBP 16:04
PROVIDERS: ADMIT Obstetrics & Gynecology; ATTEND Obstetrics & Gynecology
DX: O26.891 Other specified pregnancy related conditions, first trimester (principal); Z3A.01 Less than 8 weeks gestation of pregnancy; Q87.81 Alport syndrome; Z87.891 Personal history of nicotine dependence; O34.81 Maternal care for other abnormalities of pelvic organs, first trimester; N83.209 Unspecified ovarian cyst, unspecified side
CPT/HCPCS: 99285; 36415; 86900; 86901; 80053; 85025 ×2; 81001; 81025; 84702; 87808; 87491; 87591; 87070; 87086; 87205; 76801; 76817; G0378 ×2

== ENCOUNTER → 2018-06-14 | Outpatient (CLI) | payer OTHER | END | disposition home or self-care (01) | LOC: LABWHC1 09:35 | PROVIDERS: ATTEND Physician Assistant Medical | DX: O20.0 Threatened abortion (principal); Z3A.00 Weeks of gestation of pregnancy not specified | CPT/HCPCS: 36415; 84702 ==

== ENCOUNTER → 2018-06-21 | Outpatient (CLI) | payer OTHER ==
--- NOTE | 2018-06-21 14:49 | US ---
EXAMINATION TYPE: Transabdominal DATE OF EXAM: 06/21/2018 2:28 PM COMPARISON: US 06/11/18 CLINICAL HISTORY: O20.0 Threatened , Z36 Confirm Dates. Threatened , confirm dates pe r order. EXAM PERFORMED: Transvaginal (TV) and Transabdominal (TA) endovaginal scanning performed for better evaluation of the . EXAM MEASUREMENTS: GESTATIONAL AGE / DATING Physician Established: Not yet established Dates by LMP: (6 weeks/1 days) EDC: 02/13/2019 Dates by First Scan: No IUP visualized Dates by Current Scan for: (6 weeks/4 days) EDC: 02/10/2019 MATERNAL ANATOMY Uterus: 8.7 x 6.2 x 5.1 cm. Right Ovary: 4.8 x 3.2 x 2.7 cm. Cystic areas seen. Larger: 2.4 x 3.0 x 2.4 cm. Left Ovary: 1.6 x 0.8 x 1.0 cm Post CDS / Adnexa: Fluid seen CDS Presence of free fluid: Yes Presence of corpus luteal cyst: Right ovary: 2.4 x 2.5 x 2.4 cm. Presence of subchorionic bleed: Small hypoechoic area seen: 0.7 x 0.8 x 0.5 cm. GESTATION / SURVEY CRL: 0.52 (6 weeks/2 days) MSD: 1.9 (6 weeks/5 days) Yolk Sac (normal less than 6mm): 1.91 Heart Rate: 121 bpm Rhythm: Normal IUP: Viable IUP Date of LMP: 05/09/2018 Beta HcG (if available): N/A Single IUP visualized measuring 6 weeks 4 days. IMPRESSION: Single viable intrauterine corresponding to ultrasound age dated 6 weeks 4 days with estima kenneth date of delivery 02/10/2019. Small subchorionic hemorrhage is suspected. Small amount of free flu id in the pelvis.
== END ==
LOC: RADUSWWP 13:08
PROVIDERS: ATTEND Obstetrics & Gynecology
DX: Z36.9 Encounter for antenatal screening, unspecified (principal); Z3A.01 Less than 8 weeks gestation of pregnancy
CPT/HCPCS: 76801; 76817

== ENCOUNTER 2018-08-24 06:53 | Emergency (ER) | payer OTHER ==
[2018-08-24 07:02] VITALS: RESP 18
--- NOTE | 2018-08-24 07:20 | ED ---
Abdominal Pain HPI - General Chief Complaint: Abdominal Pain Stated Complaint: 15 weeks preg, abd pain, vaginal bleeding Time Seen by Provider: 08/24/18 07:03 Source: patient, RN notes reviewed Mode of arrival: ambulatory Limitations: no limitations - History of Present Illness Initial Comments: 30-year-old female presents emergency Department with chief complaint of vaginal bleeding and . Patient is currently [address] Delatorre. Patient that she that reports morning started having some lower abdominal pain, severe cramping which has subsided at this time and she states she went to the bathroom and noticed one spot of bright red blood. Patient states she's had no accompanying fractures throughout this . She has an appointment tomorrow with her [employer]. Denies fever, chills, dysuria, hematuria, nausea, vomiting diarrhea constipation. - Related Data Home Medications Medication Instructions Recorded Confirmed Lrh-Rrwm-Hccte Acid 1 cap PO HS 06/11/18 08/24/18 [-U Capsule (formulary)] Allergies Allergy/AdvReac Type Severity Reaction Status Date / Time No Known Allergies Allergy Verified 08/24/18 07:15 Review of Systems ROS Statement: Those systems with pertinent positive or pertinent negative responses have been documented in the HPI. ROS Other: All systems not noted in ROS Statement are negative. 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 History of Any Multi-Drug Resistant Organisms: None Reported Past Surgical History: No Surgical Hx Reported Past Psychological History: No Psychological Hx Reported Smoking Status: Former smoker Past Alcohol Use History: Rare Past Drug Use History: None Reported - Past Family History Father History Unknown: Yes General Exam Limitations: no limitations General appearance: alert, in no apparent distress Head exam: Present: atraumatic, normocephalic, normal inspection Eye exam: Present: normal appearance, PERRL, EOMI. Absent: scleral icterus, conjunctival injection, periorbital swelling Neck exam: Present: normal inspection, full ROM. Absent: tenderness, meningismus, lymphadenopathy Respiratory exam: Present: normal lung sounds bilaterally. Absent: respiratory distress, wheezes, rales, rhonchi, stridor Cardiovascular Exam: Present: regular rate, normal rhythm, normal heart sounds. Absent: systolic murmur, diastolic murmur, rubs, gallop, clicks GI/Abdominal exam: Present: soft, normal bowel sounds. Absent: distended, tenderness, guarding, rebound, rigid Back exam: Absent: CVA tenderness (R), CVA tenderness (L) Neurological exam: Present: alert, oriented X3, CN II-XII intact Skin exam: Present: warm, dry, intact, normal color. Absent: rash Course Vital Signs 08/24/18 08/24/18 07:00 08:53 Temperature 98.3 F 97.9 F Pulse Rate 86 74 Respiratory 18 18 Rate Blood Pressure 121/75 100/54 O2 Sat by Pulse 99 97 Oximetry Medical Decision Making - Medical Decision Making 22-year-old female presented for vaginal bleeding and . Patient's old trauma does not reveal any comp eating fractures there was noted contraction during ultrasound. Patient urinalysis does reveal blood in mild 14 patient's blood pressure within normal limits. She has an appointment tomorrow with Dr. Delatorre. She is advised to inform her [employer] that she was in the emergency room did have an ultrasound and was noted to have proteinuria - Lab Data Lab Results 08/24/18 Range/Units 08:48 Urine Color Yellow Urine Appearance Cloudy H (Clear) Urine pH 7.5 (5.0-8.0) Ur Specific [place] 1.016 (1.001-1.035) Urine Protein 3+ H (Negative) Urine Glucose (UA) Negative (Negative) Urine Ketones Negative (Negative) Urine Blood Moderate H (Negative) Urine Nitrite Negative (Negative) Urine Bilirubin Negative (Negative) Urine Urobilinogen <2.0 (<2.0) mg/dL Ur Leukocyte Esterase Trace H (Negative) Urine RBC 22 H (0-5) /hpf Urine WBC 7 H (0-5) /hpf Ur Squamous Epith Cells 5 H (0-4) /hpf Urine Bacteria Rare H (None) /hpf Urine Mucus Occasional H (None) /hpf Disposition Clinical Impression: Abdominal pain during Disposition: HOME SELF-CARE Condition: Stable Instructions (If sedation given, give patient instructions): Abdominal Pain in (ED) Additional Instructions: Please return to the Emergency Department if symptoms worsen or any other concerns. Is patient prescribed a controlled substance at d/c from ED?: No Referrals: Gina Doss DO [Primary Care Provider] - 1-2 days Elaine Delatorre DO [Family Provider] - 1-2 days Time of Disposition: 09:26
--- NOTE | 2018-08-24 08:25 | US ---
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 TECHNIQUE: Transabdominal (TA) GESTATIONAL AGE / DATING Physician Established: (15 weeks/2 days) EDC: 02/13/2019 Dates by LMP: (15 weeks/2 days) EDC: 02/13/2019 Dates by First Scan: (15 weeks/5 days) EDC: 02/10/2019 Dates by Current Scan: (16 weeks/0 days) EDC: 02/08/2019 Beta HCG (if available): NA SURVEY IUP: single PLACENTA: fundal posterior; small venous wilson was noted placental side at mid placenta PREVIA: No Previa SHARITA: 12.4 cm Normal CERVICAL LENGTH (transabdominal: norm > 3.0cm): 3.2 cm BIOMETRY PRESENTATION: Vertex LIE: Longitudinal BPD: 3.2 cm 15 weeks / 6 days HC: 11.8 cm 15 weeks / 6 days AC: 10.2 cm 16 weeks / 1 day FL: 2.0 cm 15 weeks / 6 days ESTIMATED WEIGHT IN GRAMS: 140.9 grams ESTIMATED WEIGHT IN LBS/OZ: 0 lbs. 5 oz. WEIGHT PERCENTAGE BASED ON ESTABLISHED DATES: 84.7% HC/AC: 1.16 Normal FL/AC: 19.29 Normal HEART RATE: 155 bpm RHYTHM: Normal Focal myometrial contraction was noted at exam's onset and subsided at exam's end. Single, live IUP,16 weeks/0 days EDC: 02/08/2019, [id number]. IMPRESSION: 1. Single live intrauterine with a sonographic age of 16 weeks and 0 days and estimated yomi e of delivery of 02/08/2019, overall concordant with menstrual age. Amniotic fluid index is 12.4 cm, within normal limits and heart rate is also within normal limits at 155 bpm. 2. Incidentally noted focal myometrial contraction was seen during the examination, resolved at the e nd of the examination.
[2018-08-24 08:54] VITALS: TEMP 97.9
[2018-08-24 09:06] LABS: Appearance,Urine Cloudy (Clear); Bacteria,Urine Rare /hpf; Bilirubin,Urine Negative (Negative); Blood,Urine Moderate (Negative); Color,Urine Yellow; Glucose,Urine (UA) Negative (Negative); Ketones,Urine Negative (Negative); Leukocyte Esterase,Urine Trace (Negative); Mucus,Urine Occasional /hpf; Nitrite,Urine Negative (Negative); PH, Urine 7.5 (5.0-8.0); Protein,Urine 3+ (Negative); RBC,Urine 22 /hpf (0-5); Specific Gravity,Urine 1.016 (1.001-1.035); Squamous Epithelial Cell,Urine 5 /hpf (0-4); Urobilinogen,Urine <2.0 mg/dL (<2.0)
[2018-08-24 09:39] VITALS: BP 109/67; PULSE 77
== END 2018-08-24 09:39 | disposition home or self-care (01) ==
LOC: EC 06:53
DX: O26.892 Other specified pregnancy related conditions, second trimester (principal); R10.30 Lower abdominal pain, unspecified; O12.12 Gestational proteinuria, second trimester; Z3A.16 16 weeks gestation of pregnancy; Z87.891 Personal history of nicotine dependence
CPT/HCPCS: 76805; 81001; 99284

== ENCOUNTER 2018-09-16 08:03 | Emergency (ER) | payer OTHER ==
[2018-09-16 08:07] VITALS: TEMP 98.3
--- NOTE | 2018-09-16 08:44 | ED ---
General Adult HPI - General Chief complaint: Abdominal Pain Stated complaint: 18 weeks , lower abdominal pain Time Seen by Provider: 09/16/18 08:03 Source: patient, RN notes reviewed Mode of arrival: ambulatory Limitations: no limitations - History of Present Illness Initial comments: This is a 22-year-old female presents to the emergency department stating she is 18 weeks . Patient states she's been having some right-sided intermittent abdominal pain since this morning. Patient states there are times when the pain does not hurt at all she states that walking does seem to make it worse at times. Patient denies any vaginal bleeding. Patient denies any pain currently. Patient denies any dysuria hematuria urinary frequency. Patient denies any back pain. Patient states she's had multiple ultrasounds. Patient states she states that she hasn't felt the baby move very much since this started. Patient denies any fever chills. She denies any abnormal discharge. Patient is a - Related Data Home Medications Medication Instructions Recorded Confirmed Ifx-Rqgp-[id number] Acid 1 cap PO HS 06/11/18 09/16/18 [-U Capsule (formulary)] Aspirin EC [Ecotrin Low Dose] 81 mg PO DAILY 09/16/18 09/16/18 Previous Rx's Medication Instructions Recorded Cephalexin [Keflex] 500 mg PO Q6HR 3 Days #12 cap 09/16/18 Allergies Allergy/AdvReac Type Severity Reaction Status Date / Time No Known Allergies Allergy Verified 09/16/18 08:19 Review of Systems ROS Statement: Those systems with pertinent positive or pertinent negative responses have been documented in the HPI. ROS Other: All systems not noted in ROS Statement are negative. 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 History of Any Multi-Drug Resistant Organisms: None Reported Past Surgical History: No Surgical Hx Reported Past Psychological History: No Psychological Hx Reported Smoking Status: Former smoker Past Alcohol Use History: Rare Past Drug Use History: None Reported - Past Family History Father History Unknown: Yes General Exam - General Exam Comments Initial Comments: GENERAL: Patient is well-developed and well-nourished. Patient is nontoxic and well- hydrated and is in no acute distress. ENT: Neck is soft and supple. Moist mucous membranes. Neck has full range of motion without eliciting any pain. EYES: The sclera were anicteric and conjunctiva were pink and moist. Extraocular movements were intact and pupils were equal round and reactive to light. Eyelids were unremarkable. PULMONARY: Unlabored respirations. Good breath sounds bilaterally. No audible rales rhonc hi or wheezing was noted. CARDIOVASCULAR: There is a regular rate and rhythm without any murmurs gallops or rubs. ABDOMEN: Soft and nontender with normal bowel sounds. I could find no area of tenderness on palpation. SKIN: Skin is clear with no lesions or rashes and otherwise unremarkable. NEUROLOGIC: Patient is alert and oriented x3. Cranial nerves II through XII are grossly intact. Motor and sensory are also intact. Normal speech, volume and content. Symmetrical smile. MUSCULOSKELETAL: Normal extremities with adequate strength and full range of motion. LYMPHATICS: No significant lymphadenopathy is noted PSYCHIATRIC: Normal psychiatric evaluation. Limitations: no limitations Course Vital Signs 09/16/18 08:05 Temperature 98.3 F Pulse Rate 77 Respiratory 16 Rate Blood Pressure 111/75 O2 Sat by Pulse 100 Oximetry Medical Decision Making - Medical Decision Making Ultrasound showed a viable IUP at 18 weeks 5 days. Previous heart rate was 133. One pack and reevaluate the patient patient stated she was feeling much better. Patient states that she's had no vaginal bleeding I mention to her that she had some blood in her urine and she insists that it was not vaginal. She did not want a pelvic exam to clarify. I will treat the patient for urinary tract infection she has an appointment with OB on Thursday. - Lab Data Lab Results 09/16/18 Range/Units 08:25 Urine Color Yellow Urine Appearance Cloudy H (Clear) Urine pH 6.5 (5.0-8.0) Ur Specific [place] 1.026 (1.001-1.035) Urine Protein 3+ H (Negative) Urine Glucose (UA) Negative (Negative) Urine Ketones Negative (Negative) Urine Blood Moderate H (Negative) Urine Nitrite Negative (Negative) Urine Bilirubin Negative (Negative) Urine Urobilinogen <2.0 (<2.0) mg/dL Ur Leukocyte Esterase Trace H (Negative) Urine RBC 113 H (0-5) /hpf Urine WBC 14 H (0-5) /hpf Ur Squamous Epith Cells 4 (0-4) /hpf Urine Bacteria Rare H (None) /hpf Hyaline Casts 9 H (0-2) /lpf Urine Mucus Many H (None) /hpf Disposition Clinical Impression: Round ligament pain, UTI (urinary tract infection) Disposition: HOME SELF-CARE Condition: Good Instructions (If sedation given, give patient instructions): Urinary Tract Infe ction in Women (ED) Prescriptions: Cephalexin [Keflex] 500 mg PO Q6HR 3 Days #12 cap Is patient prescribed a controlled substance at d/c from ED?: No Referrals: Kvng Espinoza MD [STAFF PHYSICIAN] - 1-2 days Time of Disposition: 10:30
[2018-09-16 09:22] LABS: Appearance,Urine Cloudy (Clear); Bacteria,Urine Rare /hpf; Bilirubin,Urine Negative (Negative); Blood,Urine Moderate (Negative); Color,Urine Yellow; Glucose,Urine (UA) Negative (Negative); Hyaline Casts,Urine 9 /lpf (0-2); Ketones,Urine Negative (Negative); Leukocyte Esterase,Urine Trace (Negative); Mucus,Urine Many /hpf; Nitrite,Urine Negative (Negative); PH, Urine 6.5 (5.0-8.0); Protein,Urine 3+ (Negative); RBC,Urine 113 /hpf (0-5); Specific Gravity,Urine 1.026 (1.001-1.035); Squamous Epithelial Cell,Urine 4 /hpf (0-4); Urobilinogen,Urine <2.0 mg/dL (<2.0); WBC,Urine 14 /hpf (0-5)
--- NOTE | 2018-09-16 09:49 | US ---
EXAMINATION TYPE: US OB >= 14 wk fetus DATE OF EXAM: 09/16/2018 COMPARISON: US 2018 CLINICAL HISTORY: PainPelvic pain x 1 day TECHNIQUE: Transabdominal (TA) GESTATIONAL AGE / DATING Physician Established: (18 weeks/4 days) EDC: 02/13/2019 Dates by LMP: (18 weeks/4 days) EDC: 02/13/2019 Dates by First Scan: (19 weeks/0 days) EDC: 02/10/2019 Dates by Current Scan: (18 weeks/5 days) EDC: 02/12/2019 SURVEY IUP: Single PLACENTA: Fundal/Posterior PREVIA: No Previa SHARITA: 11.1 cm Normal CERVICAL LENGTH (transabdominal: norm > 3.0cm): 3.2 cm BIOMETRY PRESENTATION: Vertex BPD: 4.4 cm 19 weeks / 3 days HC: 16.0 cm 18 weeks / 6 days AC: 13.4 cm 18 weeks / 6 days FL: 2.8 cm 18 weeks / 4 days ESTIMATED WEIGHT IN GRAMS: 257.3 grams ESTIMATED WEIGHT IN LBS/OZ: 0 lbs. 9 oz. WEIGHT PERCENTAGE BASED ON ESTABLISHED DATES: 59% HC/AC: 1.19 Normal FL/AC: 20.94 HEART RATE: 133 bpm RHYTHM: Normal Viable single IUP measuring 18 weeks 5 days with a heart rate of 133bpm and an estimated delivery yomi e of 02/12/2019. IMPRESSION: Viable single IUP measuring 18 weeks 5 days with a heart rate of 133bpm and an estimated delivery yomi e of 02/12/2019.
[2018-09-16 10:53] VITALS: BP 110/76; PULSE 70; RESP 18
== END 2018-09-16 10:40 | disposition home or self-care (01) ==
LOC: EC 08:03
DX: O23.42 Unspecified infection of urinary tract in pregnancy, second trimester (principal); O99.89 Other specified diseases and conditions complicating pregnancy, childbirth and the puerperium; Q87.81 Alport syndrome; Z3A.18 18 weeks gestation of pregnancy; Z87.891 Personal history of nicotine dependence; Z79.82 Long term (current) use of aspirin
CPT/HCPCS: 76805; 81001; 99284

== ENCOUNTER 2018-10-11 11:02 | Outpatient (CLI) | payer OTHER ==
[2018-10-11 12:54] LABS: Appearance,Urine Clear (Clear); Bilirubin,Urine Negative (Negative); Blood,Urine Large (Negative); Color,Urine Yellow; Glucose,Urine (UA) Negative (Negative); Hyaline Casts,Urine 1 /lpf (0-2); Ketones,Urine Negative (Negative); Leukocyte Esterase,Urine Negative (Negative); Mucus,Urine Rare /hpf; Nitrite,Urine Negative (Negative); PH, Urine 6.5 (5.0-8.0); Protein,Urine 3+ (Negative); RBC,Urine 32 /hpf (0-5); Specific Gravity,Urine 1.019 (1.001-1.035); Squamous Epithelial Cell,Urine 1 /hpf (0-4); Urobilinogen,Urine <2.0 mg/dL (<2.0); WBC,Urine 6 /hpf (0-5)
[2018-10-11 13:59] VITALS: BP 106/67; PULSE 88; RESP 16; TEMP 98
--- NOTE | 2018-10-21 09:04 | P.MSEPDOC ---
Presenting Problems - Arrival Data Date of Arrival on Unit: 10/11/18 Time of Arrival on Unit: 11:02 Mode of Transport: Ambulatory - Complaint OB-Reason for Admission/Chief Complaint: Observation/Evaluation Comment: contractions/ cramping x 3 days Medical History - Information : 1 Para: 0 Term: 0 : 0 Abortions: Spontaneous or Elective: 0 Number of Living Children: 0 - Gestational Age Gestational Age by JORDY (wks/days): 22 Weeks and 0 Days - History Comment: Alport syndrome Review of Systems - Review of Systems Constitutional: No problems Breast: No problems ENT: No problems Cardiovascular: No problems Respiratory: No problems Gastrointestinal: No problems Genitourinary: No problems Musculoskeletal: No problems Neurological: No problems Skin: No problems Vital Signs - Temperature Temperature: 98.0 F Temperature Source: Temporal Artery Scan - Pulse Right Sitting Pulse Rate: 88 Pulse Assessment Method: Automatic Cuff - Respirations Respiratory Rate: 16 Oxygen Delivery Method: Room Air - Blood Pressure Right Arm Blood Pressure: 106/67 Blood Pressure Mean: 80 Blood Pressure Source: Automatic Cuff Medical Screen Scoring (Pre) - Cervical Exam Dilation: 1-3 cm = 1 Membranes: Intact - Uterine Contractions Frequency: > 5 minutes apart = 1 Duration: > 40 seconds = 2 Intensity: N/A - Maternal Vital Signs Maternal Temperature: N/A Maternal Blood Pressure: N/A Signs of Preeclampsia: N/A Maternal Respirations: N/A - Maternal Trauma Maternal Trauma: N/A - Assessment - Baby A Position: N/A Station: N/A - Total Score - Baby A Total Score - Baby A: 4 - Total Score - Baby B Total Score - Baby B: 4 - Total Score - Baby C Total Score - Baby C: 4 - Level of Risk - Baby A Level of Risk - Baby A: Low (0-5) - Level of Risk - Baby B Level of Risk - Baby B: Low (0-5) - Level of Risk - Baby C Level of Risk - Baby C: Low (0-5) Physician Notification (Pre) - Physician Notified Physician Notified Date: 10/11/18 Physician Notified Time: 13:36 Physician/Practitioner Notifed:: Juan Ramon - Notification Comment Comment: negative ffn, order for ua to be sent for culture Disposition - Disposition OB Disposition: Discharge to home Discharge Date: 10/11/18 Discharge Time: 13:39 I agree with the RN Medical Screening Exam: Yes Risk & Benefit of care provided described in d/c instruction: Yes Diagnosis: FALSE LABOR BEFORE 37 COMPLETED WEEKS OF GEST, SECOND TRI
== END 2018-10-11 13:39 | disposition home or self-care (01) ==
LOC: FBPOP 11:02
PROVIDERS: ATTEND Obstetrics & Gynecology
DX: O47.02 False labor before 37 completed weeks of gestation, second trimester (principal); Z3A.22 22 weeks gestation of pregnancy
CPT/HCPCS: 81001; 82731; 87086; 99213

== ENCOUNTER 2018-10-18 17:36 | Outpatient (CLI) | payer OTHER ==
[2018-10-18 18:46] LABS: Appearance,Urine Cloudy (Clear); Bacteria,Urine Occasional /hpf; Bilirubin,Urine Negative (Negative); Blood,Urine Moderate (Negative); Color,Urine Yellow; Glucose,Urine (UA) Negative (Negative); Ketones,Urine Negative (Negative); Leukocyte Esterase,Urine Trace (Negative); Mucus,Urine Moderate /hpf; Nitrite,Urine Negative (Negative); Protein,Urine 3+ (Negative); RBC,Urine 56 /hpf (0-5); Specific Gravity,Urine 1.025 (1.001-1.035); Squamous Epithelial Cell,Urine 5 /hpf (0-4); WBC,Urine 45 /hpf (0-5)
[2018-10-18 18:49] LABS: African American GFR (CKD) >90 (>60 ml/min/1.73 sqM); Anion Gap 1 mmol/L; Blood Urea Nitrogen 11 mg/dL (7-17); Carbon Dioxide 26 mmol/L (22-30); Chloride 110 mmol/L (98-107); Potassium 3.4 mmol/L (3.5-5.1); Sodium 137 mmol/L (137-145)
[2018-10-18 18:54] VITALS: BP 110/60; PULSE 80; RESP 18; TEMP 99.3
--- NOTE | 2018-10-29 12:35 | P.MSEPDOC ---
Presenting Problems - Arrival Data Date of Arrival on Unit: 10/18/18 Time of Arrival on Unit: 17:35 Mode of Transport: Ambulatory - Complaint Comment: pt arrives with left foot pain and "swelling" on top of foot. concernes about PIH. states she called dr and told to come for eval and labs. Medical History - Information : 1 Para: 0 Term: 0 : 0 Abortions: Spontaneous or Elective: 0 Number of Living Children: 0 - Gestational Age Gestational Age by JORDY (wks/days): 23 Weeks and 1 Days Review of Systems - Review of Systems Constitutional: No problems Breast: No problems ENT: No problems Cardiovascular: No problems Respiratory: No problems Gastrointestinal: No problems Genitourinary: No problems Musculoskeletal: No problems Neurological: No problems Skin: No problems Comment: slight edema of ankles bilaterally. dtr 2+ without clonus. deneis headache or blurred vision or epig pain. Vital Signs - Temperature Temperature: 99.3 F Temperature Source: Oral - Pulse Right Brachial Pulse Rate: 80 Pulse Assessment Method: Automatic Cuff - Respirations Respiratory Rate: 18 Oxygen Delivery Method: Room Air O2 Sat by Pulse Oximetry: 98 - Blood Pressure Right Arm Blood Pressure: 110/60 Blood Pressure Mean: 76 Blood Pressure Source: Automatic Cuff Medical Screen Scoring (Pre) - Cervical Exam Dilation: Exam Deferred Effacement: Exam Deferred Membranes: Intact - Uterine Contractions Frequency: N/A Duration: N/A Intensity: N/A - Maternal Vital Signs Maternal Temperature: N/A Maternal Blood Pressure: N/A Signs of Preeclampsia: N/A Maternal Respirations: N/A - Maternal Trauma Maternal Trauma: N/A - Assessment - Baby A Baseline FHR: 135 Heart Rate - NICHD Category: Category I (Normal) = 0 Position: N/A Station: N/A - Total Score - Baby A Total Score - Baby A: 0 - Total Score - Baby B Total Score - Baby B: 0 - Total Score - Baby C Total Score - Baby C: 0 - Level of Risk - Baby A Level of Risk - Baby A: Low (0-5) - Level of Risk - Baby B Level of Risk - Baby B: Low (0-5) - Level of Risk - Baby C Level of Risk - Baby C: Low (0-5) Physician Notification (Pre) - Physician Notified Physician/Practitioner Notifed:: bryant Spoke With: bryant New Order Received: Yes - Notification Comment Comment: discharge home. increase fluid intake. no work till after thu appt. dr hurtado will contact dr smith and review labs and if further tests needed will call her. Medical Screen Scoring (Post) - Cervical Exam Dilation: Exam Deferred Effacement: Exam Deferred - Uterine Contractions Frequency: N/A Duration: N/A Intensity: N/A - Maternal Vital Signs Maternal Temperature: N/A Maternal Blood Pressure: N/A Signs of Preeclampsia: N/A Maternal Respirations: N/A - Pain Assessment Pain Scale Used: Numeric (1 - 10) Pain Intensity: 3 Pain Management Goal: 2 - Maternal Trauma Maternal Trauma: N/A - Assessment - Baby A Heart Rate: 130 Heart Rate - NICHD Category: Category I (Normal) = 0 Position: N/A Station: N/A - Total Score Total Score - Baby A: 0 Total Score - Baby B: 0 Total Score - Baby C: 0 - Post Treatment Level of Risk Post Treatment Level of Risk - Baby A: Low (0-5) Post Treatment Level of Risk - Baby B: N/A Post Treatment Level of Risk - Baby C: N/A Physician Notification (Post) - Physician Notified Physician Notified Date: 10/18/18 Physician Notified Time: 19:05 Spoke With: bryant New Order Received: Yes - Notification Comment Comment: discharge home. Disposition - Disposition OB Disposition: Discharge to home Discharge Date: 10/18/18 Discharge Time: 19:15 I agree with the RN Medical Screening Exam: Yes Risk & Benefit of care provided described in d/c instruction: Yes Diagnosis: GESTATIONAL EDEMA WITH PROTEINURIA, SECOND TRIMESTER
== END 2018-10-18 19:15 | disposition home or self-care (01) ==
LOC: FBPOP 17:36
PROVIDERS: ATTEND Obstetrics & Gynecology
DX: O12.22 Gestational edema with proteinuria, second trimester (principal); Z3A.23 23 weeks gestation of pregnancy
CPT/HCPCS: 80051; 81001; 82565; 84520; 99213

== ENCOUNTER → 2018-11-17 | Outpatient (CLI) | payer OTHER ==
--- NOTE | 2018-11-17 16:39 | US ---
EXAMINATION TYPE: US venous doppler duplex LE LT DATE OF EXAM: 11/17/2018 4:26 PM COMPARISON: NONE CLINICAL HISTORY: O22.30 dvt during left leg. SIDE PERFORMED: edema TECHNIQUE: The lower extremity deep venous system is examined utilizing real time linear array sonog piper with graded compression, doppler sonography and color-flow sonography. VESSELS IMAGED: External Iliac Vein (EIV) Common Femoral Vein Deep Femoral Vein Greater Saphenous Vein * Femoral Vein Popliteal Vein Small Saphenous Vein * Proximal Calf Veins (* superficial vessels Left Leg: Negative for DVT IMPRESSION: No evidence of deep venous thrombosis in the left leg.
== END | disposition home or self-care (01) ==
LOC: RADUSWWP 15:59
PROVIDERS: ATTEND Obstetrics & Gynecology
DX: O22.30 Deep phlebothrombosis in pregnancy, unspecified trimester (principal)

== ENCOUNTER 2018-11-29 02:58 | Observation (INO) | payer OTHER ==
[2018-11-29 03:34] LABS: Appearance,Urine Cloudy (Clear); Bacteria,Urine Occasional /hpf; Bilirubin,Urine Negative (Negative); Blood,Urine Moderate (Negative); Color,Urine Yellow; Glucose,Urine (UA) Negative (Negative); Hyaline Casts,Urine 64 /lpf (0-2); Ketones,Urine Negative (Negative); Leukocyte Esterase,Urine Negative (Negative); Mucus,Urine Few /hpf; Nitrite,Urine Negative (Negative); Protein,Urine 3+ (Negative); RBC,Urine 40 /hpf (0-5); Specific Gravity,Urine 1.024 (1.001-1.035); Squamous Epithelial Cell,Urine 1 /hpf (0-4); Urobilinogen,Urine <2.0 mg/dL (<2.0); WBC,Urine 4 /hpf (0-5)
[2018-11-29] MEDS: LACTATED RINGERS 500 ML IV SCH ×3 (03:40→07:29)
[2018-11-29 04:30] LABS: Basophils # (A) 0.1 k/uL (0-0.2); Basophils % (A) 1 %; Eosinophils # (A) 0.1 k/uL (0-0.7); Eosinophils % (A) 1 %; HCT 25.1 % (34.0-46.0); HGB 8.5 gm/dL (11.4-16.0); Lymphocytes # (A) 1.4 k/uL (1.0-4.8); Lymphocytes % (A) 20 %; MCH 30.5 pg (25.0-35.0); MCV 89.6 fL (80.0-100.0); Mean Platelet Volume 6.6; Monocytes # (A) 0.3 k/uL (0-1.0); Monocytes % (A) 5 %; Neutrophils % (A) 72 %; Platelet Count 307 k/uL (150-450); RDW 12.9 % (11.5-15.5); WBC 6.9 k/uL (3.8-10.6)
[2018-11-29 04:39] LABS: ALT 15 U/L (9-52); AST 20 U/L (14-36); African American GFR (CKD) >90 (>60 ml/min/1.73 sqM); Albumin 2.1 g/dL (3.5-5.0); Alkaline Phosphatase 57 U/L (38-126); Anion Gap 2 mmol/L; Blood Urea Nitrogen 12 mg/dL (7-17); Calcium 7.9 mg/dL (8.4-10.2); Carbon Dioxide 24 mmol/L (22-30); Chloride 109 mmol/L (98-107); Glucose 79 mg/dL (74-99); Potassium 3.7 mmol/L (3.5-5.1); Sodium 135 mmol/L (137-145); Total Bilirubin 0.1 mg/dL (0.2-1.3); Total Protein 4.3 g/dL (6.3-8.2)
[2018-11-29 05:18] VITALS: BMI 24.1
[2018-11-29] MEDS ORDERED: BETAMET ACET-BETAMETH SOD PHOS 6 MG/ML VIAL IM SCH (06:30)
--- NOTE | 2018-11-29 06:40 | P.HPOB ---
History of Present Illness H&P Date: 11/29/18 Chief Complaint: Nausea, vomiting, and blanca This patient is a 22-year-old 1 para 0 female estimated date of confinement 02/13/2019 estimated gestational age 29 and one sevenths weeks gestation who presented to labor and delivery early this morning with complaints of nausea vomiting and also lower abdominal cramping. Patient denies any bleeding or leaking of fluid. care is per Dr. 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 Patient most recently was at [facility] approximately 4 days ago and had a normal growth ultrasounds and also had a cervical measurement at that time of 35 mm. Patient states that she has had cramping on and off throughout the however became more severe today. Cervical exam shows the external os to be fingertip. Patient initially was having contractions every 3-4 minutes but with IV hydration has spaced out to every 5-6 minutes. fibronectin is negative. Hemoglobin is 8.5 however this appears to be chronic in etiology. Patient's urinalysis shows 3+ protein which again is consistent with her Alport syndrome. Review of Systems Gastrointestinal: Reports nausea, Reports vomiting Genitourinary: Reports pelvic pain, Reports Menstruation: Reports amenorrhea Past Medical History Additional Past Medical History / Comment(s): Patient states she is a carrier of Alport syndrome but her father indicates she does have some clinical ramifications of that including hematuria or protein in her urine. History of Any Multi-Drug Resistant Organisms: None Reported Past Surgical History: No Surgical Hx Reported Past Anesthesia/Blood Transfusion Reactions: No Reported Reaction Past Psychological History: No Psychological Hx Reported Smoking Status: Never smoker Past Alcohol Use History: Rare Past Drug Use History: None Reported - Past Family History Father History Unknown: Yes Medications and Allergies Home Medications Medication Instructions Recorded Confirmed Type Syj-Nyqj-Kcqro Acid 1 cap PO HS 06/11/18 11/29/18 History [-U Capsule (formulary)] Aspirin EC [Ecotrin Low Dose] 81 mg PO DAILY 09/16/18 11/29/18 History Allergies Allergy/AdvReac Type Severity Reaction Status Date / Time No Known Allergies Allergy Verified 11/29/18 03:23 Exam Vital Signs Temp Pulse Resp BP 11/29/18 05:15 96.8 F L 96 16 117/66 11/29/18 03:31 96.8 F L 96 16 117/66 Intake and Output 11/28/18 11/28/18 11/29/18 14:59 22:59 06:59 Other: Weight 58.06 kg - OBG Physical Exam Abdomen: bowel sounds normal, no diffuse tenderness, no bruit present, no guarding noted, no hepatomegaly, no splenomegaly, no mass Vulva: both: normal Vagina: normal moisture, no discharge Cervix: no lesion (Cervix is fingertip external os), no discharge Uterus: enlarged Results Ultrasound on November 25 at [facility] shows the fetus to be vertex 2 lbs. 12 oz./1242 g which is at the 51st percentile. Cervical length was 3.5 cm. fibronectin is negative Result Diagrams: 11/29/18 03:42 11/29/18 03:42 Abnormal Lab Results - Last 24 Hours (Table) 11/29/18 11/29/18 11/29/18 Range/Units 03:20 03:42 03:42 RBC 2.80 L (3.80-5.40) m/uL Hgb 8.5 L (11.4-16.0) gm/dL Hct 25.1 L (34.0-46.0) % Sodium 135 L (137-145) mmol/L Chloride 109 H (98-107) mmol/L Calcium 7.9 L (8.4-10.2) mg/dL Total Bilirubin 0.1 L (0.2-1.3) mg/dL Total Protein 4.3 L (6.3-8.2) g/dL Albumin 2.1 L (3.5-5.0) g/dL Urine Appearance Cloudy H (Clear) Urine Protein 3+ H (Negative) Urine Blood Moderate H (Negative) Urine RBC 40 H (0-5) /hpf Urine Bacteria Occasional H (None) /hpf Hyaline Casts 64 H (0-2) /lpf Urine Mucus Few H (None) /hpf Assessment and Plan Assessment: This is a 22-year-old 1 para 0 female 29 and one sevenths weeks gestation with nausea, vomiting, and contractions. fibronectin is negative however patient continues to have contractions and does have some minimal dilation of the cervix (external os). Plan at this time is to admit for continued IV hydration and I am going to administer Celestone due to the high risk nature of this patient's and increased risk of delivery. Patient did have a normal Glucola 111. Although her creatinine is normal if she were to require magnesium sulfate therapy will have to be cautious with this due to her kidney condition. Patient will be seen by her primary physician Dr. Delatorre this morning. (1) 29 weeks gestation of Current Visit: Yes Status: Acute Code(s): Z3A.29 - 29 WEEKS GESTATION OF SNOMED Code(s): 68639160 (2) contractions Current Visit: Yes Status: Acute Code(s): O47.9 - FALSE LABOR, UNSPECIFIED SNOMED Code(s): 540171297 (3) X-linked Alport syndrome Current Visit: Yes Status: Acute Code(s): Q87.81 - ALPORT SYNDROME SNOMED Code(s): 280187516
--- NOTE | 2018-11-29 06:55 | P.MSEPDOC ---
Presenting Problems - Arrival Data Date of Arrival on Unit: 11/29/18 Time of Arrival on Unit: 03:00 Mode of Transport: Ambulatory - Complaint OB-Reason for Admission/Chief Complaint: Acute Nausea/Vomiting, Pain Medical History - Information : 1 Para: 0 Term: 0 : 0 Abortions: Spontaneous or Elective: 0 Number of Living Children: 0 - Gestational Age Gestational Age by JORDY (wks/days): 29 Weeks and 1 Days - History Comment: + for Alport syndrome Review of Systems - Review of Systems Constitutional: No problems Breast: No problems ENT: No problems Cardiovascular: No problems Respiratory: No problems Gastrointestinal: No problems Genitourinary: No problems Musculoskeletal: No problems Neurological: No problems Skin: No problems Vital Signs - Temperature Temperature: 96.8 F Temperature Source: Tympanic - Pulse Right Brachial Pulse Rate: 96 Pulse Assessment Method: Automatic Cuff - Respirations Respiratory Rate: 16 Oxygen Delivery Method: Room Air - Blood Pressure Right Arm Blood Pressure: 117/66 Blood Pressure Mean: 83 Blood Pressure Source: Automatic Cuff Medical Screen Scoring (Pre) - Cervical Exam Dilation: 1-3 cm = 1 Effacement: More than 50% = 2 Membranes: Intact - Uterine Contractions Frequency: < 36 weeks = 6 Duration: > 40 seconds = 2 Intensity: N/A - Maternal Vital Signs Maternal Temperature: N/A Maternal Blood Pressure: N/A Signs of Preeclampsia: N/A Maternal Respirations: N/A - Maternal Trauma Maternal Trauma: N/A - Assessment - Baby A Baseline FHR: 135 Heart Rate - NICHD Category: Category I (Normal) = 0 NST: Reactive Position: N/A Station: N/A - Total Score - Baby A Total Score - Baby A: 11 - Total Score - Baby B Total Score - Baby B: 11 - Total Score - Baby C Total Score - Baby C: 11 - Level of Risk - Baby A Level of Risk - Baby A: High (10+) - Level of Risk - Baby B Level of Risk - Baby B: High (10+) - Level of Risk - Baby C Level of Risk - Baby C: High (10+) Physician Notification (Pre) - Physician Notified Physician Notified Date: 11/29/18 Physician Notified Time: 03:31 Physician/Practitioner Notifed:: Dr. Espinoza Spoke With: Dr. Espinoza New Order Received: Yes - Notification Comment Comment: lab work, IV, FFN Medical Screen Scoring (Post) - Uterine Contractions Frequency: < 36 weeks = 6 Duration: > 40 seconds = 2 Intensity: N/A - Maternal Vital Signs Maternal Temperature: N/A Signs of Preeclampsia: N/A Maternal Respirations: N/A - Pain Assessment Pain Location and Character: Abdomen Pain Scale Used: Numeric (1 - 10) Pain Intensity: 6 Pain Management Goal: 0 Pain Description: *Acute Pain Radiation Location: na Pain Frequency: Intermittent Pain Duration: 5 Pain Duration Units: Minutes Pain Behavior: Vocalization Pain Aggravating Factors: None Non-Pharmacological Interventions: Darkened Room, Distraction, Position/Reposition - Maternal Trauma Maternal Trauma: N/A - Assessment - Baby A Heart Rate: 135 Heart Rate - NICHD Category: Category I (Normal) = 0 NST: Reactive Position: N/A Station: N/A - Total Score Total Score - Baby A: 8 Total Score - Baby B: 8 Total Score - Baby C: 8 - Post Treatment Level of Risk Post Treatment Level of Risk - Baby A: Medium (6-9) Post Treatment Level of Risk - Baby B: N/A Post Treatment Level of Risk - Baby C: N/A Physician Notification (Post) - Physician Notified Physician Notified Date: 11/29/18 Physician Notified Time: 05:09 Physician/Practitioner Notified:: Dr. Espinoza Spoke With: Dr. Espinoza New Order Received: Yes - Notification Comment Comment: admit for obv Disposition - Disposition OB Disposition: Admit I agree with the RN Medical Screening Exam: Yes Risk & Benefit of care provided described in d/c instruction: Yes Diagnosis: LABOR WITHOUT DELIVERY, THIRD TRIMESTER (Patient is admitted for treatment and evaluation.)
[2018-11-29] MEDS ORDERED: LACTATED RINGERS 1,000 ML IV SCH (07:30)
[2018-11-29 08:08] VITALS: BP 115/77; PULSE 79; RESP 18; TEMP 97.1
[2018-11-29] MEDS ORDERED: INDOMETHACIN 25 MG CAP PO STA (08:57)
[2018-11-29] MEDS ORDERED: MAG HYDROX/AL HYDROX/SIMETH 30 ML CUP PO STA (08:58)
== END 2018-11-29 09:50 ==
LOC: FBPOP 02:58 → 4FBP 04:59 → INTOOBSV 04:59 → UNDODISIN 09:50
PROVIDERS: ADMIT Obstetrics & Gynecology; ATTEND Obstetrics & Gynecology
DX: O60.03 Preterm labor without delivery, third trimester (principal); O21.2 Late vomiting of pregnancy; Q87.81 Alport syndrome; Z3A.29 29 weeks gestation of pregnancy; Z79.82 Long term (current) use of aspirin
CPT/HCPCS: 59025; 99214; 96360; 96361; 96372; 82731; 80053; 85025; 81001; G0378; J0702

== ENCOUNTER 2019-01-08 18:56 | Outpatient (CLI) | payer OTHER ==
[2019-01-08] MEDS ORDERED: LACTATED RINGERS 1,000 ML IV SCH (19:45)
[2019-01-08 19:55] VITALS: BP 128/67; PULSE 78; RESP 16; TEMP 97.2
[2019-01-08 19:57] LABS: Basophils % (A) 0 %; Eosinophils # (A) 0.1 k/uL (0-0.7); Eosinophils % (A) 1 %; HGB 8.9 gm/dL (11.4-16.0); Lymphocytes # (A) 1.4 k/uL (1.0-4.8); Lymphocytes % (A) 23 %; MCHC 34.3 g/dL (31.0-37.0); MCV 87.6 fL (80.0-100.0); Mean Platelet Volume 5.8; Monocytes # (A) 0.2 k/uL (0-1.0); Monocytes % (A) 4 %; Neutrophils # (A) 4.4 k/uL (1.3-7.7); Neutrophils % (A) 71 %; Platelet Count 303 k/uL (150-450); RBC 2.97 m/uL (3.80-5.40); RDW 13.4 % (11.5-15.5); WBC 6.2 k/uL (3.8-10.6)
--- NOTE | 2019-01-08 20:26 | P.HPOB ---
History of Present Illness H&P Date: 01/08/19 Chief Complaint: Contractions. This patient is a pleasant 22-year-old 1 para 0 female estimated date of confinement 02/13/2019 estimated gestational age 34-6/7 weeks who presents to labor and delivery with complaint of contractions since earlier today. Patient's is complicated by previous labor 29 weeks when she was 2 cm dilated and transferred to [facility] on Indocin. Patient's been followed subsequently by Dr. Abdullahi at [facility] and Dr. Delatorre here. Patient began having contractions earlier today and is now 2-3 cm dilated approximate 60% effaced. On admission patient is having contractions every 2- 3 minutes and with hydration spaces out to about every 5-6 minutes. heart tones are category 1. Patient received Celestone on November 29. Patient's is also complicated by known carrier for Alports syndrome. 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 History of Any Multi-Drug Resistant Organisms: None Reported Past Surgical History: No Surgical Hx Reported Past Anesthesia/Blood Transfusion Reactions: No Reported Reaction Smoking Status: Never smoker Past Alcohol Use History: None Reported Past Drug Use History: None Reported - Past Family History Father History Unknown: Yes Medications and Allergies Home Medications Medication Instructions Recorded Confirmed Type Tnh-Gezv-Wcyjq Acid 1 cap PO HS 06/11/18 01/08/19 History [-U Capsule (formulary)] Aspirin EC [Ecotrin Low Dose] 81 mg PO DAILY 09/16/18 01/08/19 History Allergies Allergy/AdvReac Type Severity Reaction Status Date / Time No Known Allergies Allergy Verified 01/08/19 18:57 Exam Vital Signs Temp Pulse Resp BP 01/08/19 18:58 97.2 F L 78 16 128/67 Intake and Output 01/08/19 01/08/19 01/08/19 06:59 14:59 22:59 Other: Weight 56.699 kg - OBG Physical Exam Abdomen: bowel sounds normal, no diffuse tenderness, no bruit present, no guarding noted, no hepatomegaly, no splenomegaly, no mass Cervix: no lesion (Cervix is 2-3 cm 60% effaced -3 station per RN.), no discharge Results blood work shows she is O positive, rubella immune, RPR nonreactive, hepatitis B negative, ultrasound bedside shows vertex presentation patient recent growth ultrasound at [facility]. Result Diagrams: 01/08/19 19:47 Abnormal Lab Results - Last 24 Hours (Table) 01/08/19 Range/Units 19:47 RBC 2.97 L (3.80-5.40) m/uL Hgb 8.9 L (11.4-16.0) gm/dL Hct 26.0 L (34.0-46.0) % Assessment and Plan Assessment: This is a 22-year-old 1 para 0 female 34-6/7 weeks gestation with contractions. Due to gestational age plan at this time is transferred to a tertiary facility. I contacted the physicians at [facility] labor and delivery in patient is been accepted in transfer. Patient this time is stable in delivery does not appear to be eminent. I've discussed this with the patient and her family and they've agreed for transfer. (1) 34 weeks gestation of Current Visit: Yes Status: Acute Code(s): Z3A.34 - 34 WEEKS GESTATION OF SNOMED Code(s): 31035954 (2) contractions Current Visit: No Status: Acute Code(s): O47.9 - FALSE LABOR, UNSPECIFIED SNOMED Code(s): 605830481
--- NOTE | 2019-01-08 20:32 | P.DS ---
Providers Expected date of discharge: 01/08/19 Attending physician: Kvng Espinoza Primary care physician: Stated None - Discharge Diagnosis(es) (1) 34 weeks gestation of Current Visit: Yes Status: Acute (2) contractions Current Visit: No Status: Acute Hospital Course: Please see dictated H&P for intimate details of this patient's admission. Brief summary this is a 23-year-old 1 para 0 female 34-6/7 weeks gestation admitted to triage with complaints of contractions. Patient does have a history of labor in the past. Patient was transferred to [facility] undelivered due to prematurity. Patient Condition at Discharge: Stable Plan - Discharge Summary New Discharge Prescriptions: No Action Vih-Gofg-Fiodx Acid [-U Capsule (formulary)] 1 cap PO HS Aspirin EC [Ecotrin Low Dose] 81 mg PO DAILY Discharge Medication List Ucp-Qmcv-Ezpkh Acid [-U Capsule (formulary)] 1 cap PO HS 06/11/18 [History] Aspirin EC [Ecotrin Low Dose] 81 mg PO DAILY 09/16/18 [History] Discharge Disposition: OTHER INSTITUTION NOT DEFINED
--- NOTE | 2019-01-09 07:21 | P.MSEPDOC ---
Presenting Problems - Arrival Data Date of Arrival on Unit: 01/08/19 Time of Arrival on Unit: 18:56 Mode of Transport: Ambulatory - Complaint OB-Reason for Admission/Chief Complaint: Possible Onset of Labor, Rule Out PROM Comment: increasing contractions less than 1 hour, possible leaking fluid Medical History - Information : 1 Para: 0 Term: 0 : 0 Abortions: Spontaneous or Elective: 0 Number of Living Children: 0 - Gestational Age Gestational Age by JODRY (wks/days): 34 Weeks and 6 Days - History Comment: carrier alport syndrome Review of Systems - Review of Systems Constitutional: No problems Breast: No problems ENT: No problems Cardiovascular: No problems Respiratory: No problems Gastrointestinal: No problems Genitourinary: No problems Musculoskeletal: No problems Neurological: No problems Skin: No problems Vital Signs - Temperature Temperature: 97.2 F Temperature Source: Temporal Artery Scan - Pulse Right Brachial Pulse Rate: 78 Pulse Assessment Method: Automatic Cuff - Respirations Respiratory Rate: 16 Oxygen Delivery Method: Room Air - Blood Pressure Right Arm Sitting Blood Pressure: 128/67 Blood Pressure Mean: 87 Blood Pressure Source: Automatic Cuff Medical Screen Scoring (Pre) - Cervical Exam Dilation: 1-3 cm = 1 Membranes: Intact - Uterine Contractions Frequency: < 36 weeks = 6 Duration: > 40 seconds = 2 - Maternal Vital Signs Maternal Temperature: N/A Maternal Blood Pressure: N/A Signs of Preeclampsia: N/A Maternal Respirations: N/A - Assessment - Baby A Baseline FHR: 130 Heart Rate - NICHD Category: Category II (Indeterminate) = 3 NST: Reactive Position: N/A Station: N/A - Total Score - Baby A Total Score - Baby A: 12 - Total Score - Baby B Total Score - Baby B: 9 - Total Score - Baby C Total Score - Baby C: 9 - Level of Risk - Baby A Level of Risk - Baby A: High (10+) - Level of Risk - Baby B Level of Risk - Baby B: Medium (6-9) - Level of Risk - Baby C Level of Risk - Baby C: Medium (6-9) Physician Notification (Pre) - Physician Notified Physician Notified Date: 01/08/19 Physician Notified Time: 19:45 Physician/Practitioner Notifed:: Alexis Spoke With: Alexis New Order Received: Yes - Notification Comment Comment: start IV, intiate transfer, coming in Disposition - Disposition OB Disposition: Triage Discharge Date: 01/08/19 Discharge Time: 21:10 I agree with the RN Medical Screening Exam: Yes Risk & Benefit of care provided described in d/c instruction: Yes Diagnosis: LABOR WITHOUT DELIVERY, THIRD TRIMESTER (Please see dictated admission history and physical and discharge summary. Patient was transferred to tertiary care center due to less than 35 weeks gestation.)
== END 2019-01-08 21:10 | disposition other institution (70) ==
LOC: FBPOP 18:56
PROVIDERS: ATTEND Obstetrics & Gynecology
DX: O60.03 Preterm labor without delivery, third trimester (principal); Z3A.34 34 weeks gestation of pregnancy
CPT/HCPCS: 59025; 82731; 84112; 85025; 96360; 99214

== ENCOUNTER 2019-01-16 00:26 | Outpatient (CLI) | payer OTHER ==
[2019-01-16 01:16] VITALS: BP 122/70; PULSE 91; RESP 16; TEMP 97.5
--- NOTE | 2019-02-17 05:30 | P.MSEPDOC ---
Presenting Problems - Arrival Data Date of Arrival on Unit: 01/16/19 Time of Arrival on Unit: 00:26 Mode of Transport: Ambulatory - Complaint OB-Reason for Admission/Chief Complaint: Decreased Movement Comment: Patient presents to triage with complaints of pressure and decreased . 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 Patient was sent to [facility] last week and has previously received two doses of celestone. Review of Systems - Review of Systems Constitutional: No problems Breast: No problems ENT: No problems Cardiovascular: No problems Respiratory: No problems Gastrointestinal: No problems Genitourinary: No problems Musculoskeletal: No problems Neurological: No problems Skin: No problems Vital Signs - Temperature Temperature: 97.5 F Temperature Source: Temporal Artery Scan - Pulse Right Brachial Pulse Rate: 91 Pulse Assessment Method: Automatic Cuff - Respirations Respiratory Rate: 16 Oxygen Delivery Method: Room Air - Blood Pressure Right Arm Blood Pressure: 122/70 Blood Pressure Mean: 87 Blood Pressure Source: Automatic Cuff Medical Screen Scoring (Pre) - Cervical Exam Dilation: 1-3 cm = 1 Effacement: More than 50% = 2 Membranes: Intact - Uterine Contractions Frequency: > 5 minutes apart = 1 Duration: N/A Intensity: N/A - Maternal Vital Signs Maternal Temperature: N/A Maternal Blood Pressure: N/A Signs of Preeclampsia: N/A Maternal Respirations: N/A - Maternal Trauma Maternal Trauma: N/A - Assessment - Baby A Baseline FHR: 135 Heart Rate - NICHD Category: Category I (Normal) = 0 NST: Reactive Position: N/A Station: N/A - Total Score - Baby A Total Score - Baby A: 4 - Total Score - Baby B Total Score - Baby B: 4 - Total Score - Baby C Total Score - Baby C: 4 - Level of Risk - Baby A Level of Risk - Baby A: Low (0-5) - Level of Risk - Baby B Level of Risk - Baby B: Low (0-5) - Level of Risk - Baby C Level of Risk - Baby C: Low (0-5) Physician Notification (Pre) - Physician Notified Physician Notified Date: 01/16/19 Physician Notified Time: 00:51 New Order Received: Yes - Notification Comment Comment: RN spoke with physician. RN relayed that patient has had two traceable. contractions on the monitor and has only "felt" one. Patient reports that movement has increased greatly since being hooked up to the monitor. Reactive NST reported. Cervical exam of 2.5/80/-1, which was similiar to her last exam at [facility] also relayed. Dr. Delatorre states patient may be discharged with instructions and is to keep follow up appt on Jan 19. Patient is agreement with current plan and verbalizes understanding. Disposition - Disposition OB Disposition: Discharge to home Discharge Date: 01/16/19 Discharge Time: 01:15 I agree with the RN Medical Screening Exam: Yes Risk & Benefit of care provided described in d/c instruction: Yes Diagnosis: DECREASED MOVEMENTS, THIRD TRIMESTER, FETUS 1
== END 2019-01-16 01:15 | disposition home or self-care (01) ==
LOC: FBPOP 00:26
PROVIDERS: ATTEND Obstetrics & Gynecology
DX: O36.8130 Decreased fetal movements, third trimester, not applicable or unspecified (principal); Z3A.36 36 weeks gestation of pregnancy
CPT/HCPCS: 59025; 99213

== ENCOUNTER 2019-01-27 15:00 | Outpatient (CLI) | payer OTHER ==
[2019-01-27 18:52] VITALS: BP 118/63; PULSE 95; RESP 18; TEMP 97.3
--- NOTE | 2019-02-17 05:39 | P.MSEPDOC ---
Presenting Problems - Arrival Data Date of Arrival on Unit: 01/27/19 Time of Arrival on Unit: 15:00 Mode of Transport: Ambulatory - Complaint OB-Reason for Admission/Chief Complaint: Other Comment: vaginal bleeding Medical History - Information : 1 Para: 0 Term: 0 : 0 Abortions: Spontaneous or Elective: 0 Number of Living Children: 0 - Gestational Age Gestational Age by JORDY (wks/days): 37 Weeks and 4 Days Review of Systems - Review of Systems Constitutional: No problems Breast: No problems ENT: No problems Cardiovascular: No problems Respiratory: No problems Gastrointestinal: No problems Genitourinary: No problems Musculoskeletal: No problems Neurological: No problems Skin: No problems Vital Signs - Temperature Temperature: 97.3 F Temperature Source: Temporal Artery Scan - Pulse Right Brachial Pulse Rate: 95 Pulse Assessment Method: Automatic Cuff - Respirations Respiratory Rate: 18 Oxygen Delivery Method: Room Air - Blood Pressure Right Arm Blood Pressure: 118/63 Blood Pressure Mean: 81 Blood Pressure Source: Automatic Cuff Medical Screen Scoring (Pre) - Cervical Exam Dilation: Exam Deferred Effacement: Exam Deferred Membranes: Intact - Uterine Contractions Frequency: > 5 minutes apart = 1 Duration: > 40 seconds = 2 Intensity: N/A - Maternal Vital Signs Maternal Temperature: N/A Maternal Blood Pressure: N/A Signs of Preeclampsia: N/A Maternal Respirations: N/A - Maternal Trauma Maternal Trauma: N/A - Assessment - Baby A Baseline FHR: 140 Heart Rate - NICHD Category: Category I (Normal) = 0 NST: Reactive Position: N/A Station: N/A - Total Score - Baby A Total Score - Baby A: 3 - Total Score - Baby B Total Score - Baby B: 3 - Total Score - Baby C Total Score - Baby C: 3 - Level of Risk - Baby A Level of Risk - Baby A: Low (0-5) - Level of Risk - Baby B Level of Risk - Baby B: Low (0-5) - Level of Risk - Baby C Level of Risk - Baby C: Low (0-5) Physician Notification (Pre) - Physician Notified Physician Notified Date: 01/27/19 Physician Notified Time: 16:21 New Order Received: Yes - Notification Comment Comment: monitored pt for an hour to watch for continued vaginal bleeding and contractions, minimal amount of brown blood, irregular contractions Disposition - Disposition OB Disposition: Triage Discharge Date: 01/27/19 Discharge Time: 16:35 I agree with the RN Medical Screening Exam: Yes Risk & Benefit of care provided described in d/c instruction: Yes Diagnosis: FALSE LABOR BEFORE 37 COMPLETED WEEKS OF GEST, THIRD TRI
== END 2019-01-27 16:35 | disposition home or self-care (01) ==
LOC: FBPOP 15:00
PROVIDERS: ATTEND Obstetrics & Gynecology
DX: O47.03 False labor before 37 completed weeks of gestation, third trimester (principal); Z3A.37 37 weeks gestation of pregnancy
CPT/HCPCS: 59025; 99213

== ENCOUNTER 2019-01-31 22:15 | Outpatient (CLI) | payer OTHER ==
[2019-02-01 01:15] VITALS: BP 117/70; PULSE 84; RESP 16; TEMP 97.8
--- NOTE | 2019-02-01 01:18 | P.MSEPDOC ---
Presenting Problems - Arrival Data Date of Arrival on Unit: 01/31/19 Time of Arrival on Unit: 22:15 Mode of Transport: Ambulatory - Complaint OB-Reason for Admission/Chief Complaint: Possible Onset of Labor Medical History - Information : 1 Para: 0 Term: 0 : 0 Abortions: Spontaneous or Elective: 0 Number of Living Children: 0 - Gestational Age Gestational Age by JORDY (wks/days): 38 Weeks and 2 Days - History Comment: Patient presents with contractions for the last 24 hours. Review of Systems - Review of Systems Constitutional: No problems Breast: No problems ENT: No problems Cardiovascular: No problems Respiratory: No problems Gastrointestinal: No problems Genitourinary: No problems Musculoskeletal: No problems Neurological: No problems Skin: No problems Vital Signs - Temperature Temperature: 97.8 F Temperature Source: Temporal Artery Scan - Pulse Pulse Oximetery Pulse Rate: 84 Pulse Assessment Method: Automatic Cuff - Respirations Respiratory Rate: 16 Oxygen Delivery Method: Room Air - Blood Pressure Sitting Blood Pressure: 117/70 Blood Pressure Mean: 85 Blood Pressure Source: Automatic Cuff Medical Screen Scoring (Pre) - Cervical Exam Dilation: 1-3 cm = 1 Effacement: More than 50% = 2 Membranes: Intact - Uterine Contractions Frequency: > or = 36 weeks =2 Duration: > 40 seconds = 2 Intensity: N/A - Maternal Vital Signs Maternal Temperature: N/A Maternal Blood Pressure: N/A Signs of Preeclampsia: N/A Maternal Respirations: N/A - Maternal Trauma Maternal Trauma: N/A - Assessment - Baby A Baseline FHR: 120 Heart Rate - NICHD Category: Category I (Normal) = 0 NST: Reactive Position: N/A Station: N/A - Total Score - Baby A Total Score - Baby A: 7 - Total Score - Baby B Total Score - Baby B: 7 - Total Score - Baby C Total Score - Baby C: 7 - Level of Risk - Baby A Level of Risk - Baby A: Medium (6-9) - Level of Risk - Baby B Level of Risk - Baby B: Medium (6-9) - Level of Risk - Baby C Level of Risk - Baby C: Medium (6-9) Physician Notification (Pre) - Physician Notified Physician Notified Date: 01/31/19 Physician Notified Time: 23:44 New Order Received: Yes - Notification Comment Comment: Orders given to discharge patient home with instructions. Disposition - Disposition OB Disposition: Discharge to home, Written follow up instructions reviewed Discharge Date: 01/31/19 Discharge Time: 23:50 I agree with the RN Medical Screening Exam: Yes Risk & Benefit of care provided described in d/c instruction: Yes Diagnosis: FALSE LABOR AT OR AFTER 37 COMPLETED WEEKS OF GESTATION
== END 2019-01-31 23:50 | disposition home or self-care (01) ==
LOC: FBPOP 22:15
PROVIDERS: ATTEND Obstetrics & Gynecology
DX: O47.1 False labor at or after 37 completed weeks of gestation (principal); Z3A.38 38 weeks gestation of pregnancy
CPT/HCPCS: 59025; 99213

== ENCOUNTER 2019-02-07 06:09 | Inpatient (IN) | payer OTHER ==
[2019-02-07 06:37] VITALS: BMI 24.5
[2019-02-07] MEDS ORDERED: METHYLERGONOVINE 0.2 MG/ML 1 ML AMP IM PRN (06:44)
[2019-02-07] MEDS ORDERED: CARBOPROST TROMETHAMINE 250 MCG/ML 1 ML AMP IM PRN (06:44)
[2019-02-07] MEDS ORDERED: OXYTOCIN 10 UNIT/ML 1 ML VIAL IM PRN (06:44)
[2019-02-07] MEDS ORDERED: TERBUTALINE 1 MG/ML VIAL SQ PRN (06:44)
[2019-02-07] MEDS ORDERED: LIDOCAINE 0.5% (PF) 5 MG/ML (50 ML SDV) SQ PRN (06:44)
[2019-02-07] MEDS ORDERED: OXYTOCIN 30 UNITS/500 ML NS 30 UNIT in SALINE 1 500ML.BAG IV SCH (06:45)
[2019-02-07 07:22] LABS: Basophils # (A) 0.1 k/uL (0-0.2); Basophils % (A) 1 %; Eosinophils # (A) 0.1 k/uL (0-0.7); Eosinophils % (A) 1 %; HCT 33.6 % (34.0-46.0); HGB 11.3 gm/dL (11.4-16.0); Hypochromasia Slight; Lymphocytes # (A) 2.2 k/uL (1.0-4.8); Lymphocytes % (A) 26 %; MCH 29.9 pg (25.0-35.0); MCHC 33.8 g/dL (31.0-37.0); MCV 88.4 fL (80.0-100.0); Monocytes # (A) 0.3 k/uL (0-1.0); Monocytes % (A) 4 %; Neutrophils # (A) 5.5 k/uL (1.3-7.7); Neutrophils % (A) 67 %; Platelet Count 344 k/uL (150-450); RBC 3.79 m/uL (3.80-5.40); RDW 13.8 % (11.5-15.5); WBC 8.3 k/uL (3.8-10.6)
[2019-02-07] MEDS ORDERED: ROPIVACAINE 100 MG, fentaNYL (PF) 200 MCG in SODIUM CHLORIDE 0.9% 76 ML EPIDURAL ONE (10:24)
--- NOTE | 2019-02-07 12:18 | P.HPOB ---
History of Present Illness H&P Date: 02/07/19 Chief Complaint: Induction of Labor 23 year old presents at 39 weeks for induction of labor. Her cervix is 3- 4/90/0. She is blanca irregularly. heart tones 140 with moderate variability and reactive. She is a carrier for alport syndrome and spills protein in the urine regularly. We have been watching growth and her kidney function which have remained normal. Review of Systems All systems: negative Constitutional: Denies chills, Denies fever Eyes: denies blurred vision, denies pain Ears, nose, mouth and throat: Denies headache, Denies sore throat Cardiovascular: Denies chest pain, Denies shortness of breath Respiratory: Denies cough Gastrointestinal: Denies abdominal pain, Denies diarrhea, Denies nausea, Denies vomiting Genitourinary: Denies dysuria, Denies hematuria Musculoskeletal: Denies myalgias Integumentary: Denies pruritus, Denies rash Neurological: Denies numbness, Denies weakness Psychiatric: Denies anxiety, Denies depression Endocrine: Denies fatigue, Denies weight change Past Medical History Past Medical History: No Reported History Additional Past Medical History / Comment(s): Patient states she is 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 HEr kidney function has remained normal in the and growth is also normal. She has been followed by [facility]. History of Any Multi-Drug Resistant Organisms: None Reported Past Surgical History: No Surgical Hx Reported Past Anesthesia/Blood Transfusion Reactions: No Reported Reaction Past Psychological History: No Psychological Hx Reported Smoking Status: Never smoker Past Alcohol Use History: None Reported Past Drug Use History: None Reported - Past Family History Father History Unknown: Yes Additional Family Medical History / Comment(s): Alport syndrome Medications and Allergies Home Medications Medication Instructions Recorded Confirmed Type Otq-Grsv-Fmtbw Acid 1 cap PO HS 06/11/18 02/07/19 History [-U Capsule (formulary)] Allergies Allergy/AdvReac Type Severity Reaction Status Date / Time No Known Allergies Allergy Verified 02/07/19 06:32 Exam Osteopathic Statement: *. No significant issues noted on an osteopathic structural exam other than those noted in the History and Physical/Consult. Vital Signs Temp Pulse Resp BP 02/07/19 06:32 97.8 F 77 16 111/70 Intake and Output 02/06/19 02/07/19 02/07/19 22:59 06:59 14:59 Other: Weight 58.967 kg Heart: RRR Lungs: CTAB Abdomen: soft, nontender Extremeties: neg yuki's Results Result Diagrams: 02/07/19 06:20 Abnormal Lab Results - Last 24 Hours (Table) 02/07/19 Range/Units 06:20 RBC 3.79 L (3.80-5.40) m/uL Hgb 11.3 L (11.4-16.0) gm/dL Hct 33.6 L (34.0-46.0) % Assessment and Plan (1) Normal labor Current Visit: Yes Status: Acute Code(s): O80 - ENCOUNTER FOR FULL-TERM UNCOMPLICATED DELIVERY; Z37.9 - OUTCOME OF DELIVERY, UNSPECIFIED SNOMED Code(s): 71046456 (2) X-linked Alport syndrome Current Visit: No Status: Acute Code(s): Q87.81 - ALPORT SYNDROME SNOMED Code(s): 859778621 Plan: 1. induction of labor with amniotomy and pitocin 2. anticipate normal vaginal delivery
[2019-02-07] MEDS ORDERED: diphenhydrAMINE 50 MG CAP PO PRN (14:21)
[2019-02-07] MEDS ORDERED: HYDROCORTISONE 2.5% RECTAL CREAM 30 GM TUBE RECTAL PRN (14:21)
[2019-02-07] MEDS ORDERED: LANOLIN CREAM 5 GM TUBE TOPICAL PRN (14:21)
[2019-02-07] MEDS ORDERED: BENZOCAINE/MENTHOL SPRAY 1 GM/SPRAY AEROSOL TOPICAL PRN (14:21)
[2019-02-07] MEDS ORDERED: ACETAMINOPHEN TAB 325 MG TAB PO PRN (14:21)
[2019-02-07] MEDS ORDERED: ZOLPIDEM 5 MG TAB PO PRN (14:21)
[2019-02-07] MEDS ORDERED: diphenhydrAMINE 25 MG CAP PO PRN (14:21)
[2019-02-07] MEDS ORDERED: WITCH HAZEL 1 EACH MED..PAD TOPICAL PRN (14:21)
[2019-02-07] MEDS ORDERED: SIMETHICONE 80 MG CHEWABLE PO PRN (14:21)
[2019-02-07] MEDS ORDERED: diphenhydrAMINE 50 MG/ML 1 ML VIAL IVP PRN ×2 (14:21)
[2019-02-07] MEDS ORDERED: OXYTOCIN 20 UNITS/1000 ML NS 1,000 ML IV SCH (14:30)
[2019-02-07] MEDS: IBUPROFEN 600 MG TAB PO PRN (16:38)
[2019-02-07] MEDS: SENNOSIDES-DOCUSATE SODIUM 1 EACH TAB PO SCH (19:34)
[2019-02-07] MEDS: LACTATED RINGERS 1,000 ML IV SCH (19:37)
[2019-02-07] MEDS ORDERED: IBUPROFEN 600 MG TAB PO ONE (23:15)
[2019-02-08] MEDS ORDERED: ACETAMINOPHEN TAB 325 MG TAB ONE (03:40)
[2019-02-08 08:04] LABS: Basophils % (A) 0 %; Eosinophils % (A) 1 %; HCT 26.3 % (34.0-46.0); Lymphocytes # (A) 1.7 k/uL (1.0-4.8); Lymphocytes % (A) 18 %; MCH 29.7 pg (25.0-35.0); MCHC 34.3 g/dL (31.0-37.0); MCV 86.7 fL (80.0-100.0); Monocytes # (A) 0.3 k/uL (0-1.0); Monocytes % (A) 3 %; Neutrophils # (A) 7.3 k/uL (1.3-7.7); Neutrophils % (A) 78 %; Platelet Count 300 k/uL (150-450); RBC 3.03 m/uL (3.80-5.40); WBC 9.4 k/uL (3.8-10.6)
[2019-02-08] MEDS: IBUPROFEN 600 MG TAB PO PRN (08:04)
[2019-02-08] MEDS: SENNOSIDES-DOCUSATE SODIUM 1 EACH TAB PO SCH (08:04)
--- NOTE | 2019-02-08 08:47 | P.PROBDLV ---
Vaginal Delivery Note - . Vaginal Delivery Note: 23 year old presents at 39 weeks for induction of labor. Her cervix is 3- 4/90/0. She is blanca irregularly. heart tones 140 with moderate variability and reactive. Pitocin was started. Amniotomy was performed at 8:43 AM, clear fluid noted. She progressed throughout the day. She when she was uncomfortable she did get an epidural. Her cervix was completely dilated by 1239. She pushed, delivered a viable female over intact perineum under epidural anesthesia at 1333. Head delivered OA, anterior shoulder delivered gentle downward guidance followed by posterior shoulder and rest of body. Nose and mouth bulb suctioned, cord clamped and cut, infant placed mother's abdomen. Apgars 9, 9, weight 7 pounds 4.2 ounces. Assented delivered spontaneously, intact with three-vessel cord at 1335. Vagina, cervix, perineum inspected. Bilateral labial lacerations and a second-degree midline laceration was repaired with 2-0 Vicryl and 3-0 Vicryl. Estimated blood loss 250 mL. Mother and baby in stable condition.
--- NOTE | 2019-02-08 08:49 | P.DS ---
Providers Date of admission: 02/07/19 06:09 Expected date of discharge: 02/08/19 Attending physician: Elaine Delatorre Primary care physician: Stated None - Discharge Diagnosis(es) (1) Normal labor Current Visit: Yes Status: Resolved (2) X-linked Alport syndrome Current Visit: No Status: Chronic (3) Normal vaginal delivery Current Visit: Yes Status: Acute Hospital Course: Patient presented for induction of labor. She underwent a normal vaginal delivery. Her course was uncomplicated. She'll be discharged home day #1 in stable condition to follow-up with me in 6 weeks. Plan - Discharge Summary Discharge Rx Participant: No New Discharge Prescriptions: New Ibuprofen [Motrin] 600 mg PO Q6HR PRN #30 tab PRN Reason: Mild Pain Or Fever >= 100.5 No Action Cyr-Soqo-Qyqdc Acid [-U Capsule (formulary)] 1 cap PO HS Discharge Medication List Vnu-Vzqu-Tpvks Acid [-U Capsule (formulary)] 1 cap PO HS 06/11/18 [History] Ibuprofen [Motrin] 600 mg PO Q6HR PRN #30 tab 02/08/19 [Rx] Follow up Appointment(s)/Referral(s): Elaine Delatorre DO [Doctor of Osteopathic Medicine] - 6 Weeks Discharge Disposition: HOME SELF-CARE
[2019-02-08 09:03] VITALS: BP 122/66; PULSE 93; RESP 16; TEMP 98.1
== END 2019-02-08 14:15 | disposition home or self-care (01) | DRG 806 ==
LOC: 4FBP 06:09
PROVIDERS: ADMIT Obstetrics & Gynecology; ATTEND Obstetrics & Gynecology
PROC: 10E0XZZ Delivery of Products of Conception, External Approach (ICD-10-PCS; principal; 2019-02-08)
PROC: 0KQM0ZZ Repair Perineum Muscle, Open Approach (ICD-10-PCS; principal; 2019-02-08)
DX: O70.1 Second degree perineal laceration during delivery (principal); Q87.81 Alport syndrome; Z37.0 Single live birth; Z3A.39 39 weeks gestation of pregnancy
CPT/HCPCS: 85025; 86850; 86900; 86901; 88307

== ENCOUNTER 2019-11-17 07:34 | Emergency (ER) | payer OTHER ==
[2019-11-17 07:40] VITALS: RESP 18
--- NOTE | 2019-11-17 08:14 | ED ---
Chest Pain HPI - General Chief Complaint: Chest Pain Stated Complaint: Chest pain Time Seen by Provider: 11/17/19 07:47 Source: patient, RN notes reviewed Mode of arrival: ambulatory Limitations: no limitations - History of Present Illness Initial Comments: This a 24-year-old female with a benign past medical history who states she had the onset about an hour ago while at work of sharp left-sided chest pain. She has some nausea with some shortness of breath she states was 9/10 severity did not seem to get worse with deep breathing or movements but was not relieved by anything currently it's about 3/10 in severity. No cough no phlegm production fevers chills or sweats no heavy lifting no trauma. She does states she is under last stress lately due to some home situations. She denies any chance being she is on a depo shot. Last menstrual period was 2 months ago MD Complaint: chest pain - Related Data Home Medications Medication Instructions Recorded Confirmed medroxyPROGESTERone [Depo-Provera] 150 mg IM Q90D 11/17/19 11/17/19 Previous Rx's Medication Instructions Recorded Ibuprofen [Motrin] 600 mg PO Q6HR PRN #20 tab 11/17/19 Allergies Allergy/AdvReac Type Severity Reaction Status Date / Time No Known Allergies Allergy Verified 11/17/19 08:38 Review of Systems ROS Statement: Those systems with pertinent positive or pertinent negative responses have been documented in the HPI. ROS Other: All systems not noted in ROS Statement are negative. EKG Findings - EKG Results: EKG: interpreted by HONEY, sinus rhythm (Normal sinus rhythm of 67. Interval 112 QRS duration 96 daily since QTC 390/412 a complete right bundle-branch block no acute ST-T wave changes) Past Medical History Past Medical History: No Reported History Additional Past Medical History / Comment(s): Patient states she is 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 HEr kidney function has remained normal in the and growth is also normal. She has been followed by [facility]. History of Any Multi-Drug Resistant Organisms: None Reported Past Surgical History: No Surgical Hx Reported Past Anesthesia/Blood Transfusion Reactions: No Reported Reaction Past Psychological History: No Psychological Hx Reported Smoking Status: Never smoker Past Alcohol Use History: Rare Past Drug Use History: None Reported - Past Family History Father History Unknown: Yes Additional Family Medical History / Comment(s): Alport syndrome General Exam - General Exam Comments Initial Comments: This is a well-developed well-nourished awake alert oriented 3 female Limitations: no limitations General appearance: alert, in no apparent distress Head exam: Present: atraumatic, normocephalic, normal inspection Eye exam: Present: normal appearance, PERRL, EOMI. Absent: scleral icterus, conjunctival injection, periorbital swelling ENT exam: Present: normal exam, mucous membranes moist Neck exam: Present: normal inspection, full ROM, other (No stridor JVD or bruits). Absent: tenderness, meningismus, lymphadenopathy Respiratory exam: Present: normal lung sounds bilaterally, chest wall tenderness (Tennis palpation over left costal sternal costochondral margins with no step- off or crepitation this does seem to reproduce the pain). Absent: respiratory distress, wheezes, rales, rhonchi, stridor Cardiovascular Exam: Present: regular rate, normal rhythm, normal heart sounds. Absent: systolic murmur, diastolic murmur, rubs, gallop, clicks GI/Abdominal exam: Present: soft, normal bowel sounds. Absent: distended, tenderness, guarding, rebound, rigid, bruit, pulsatile mass Extremities exam: Present: normal inspection, full ROM, normal capillary refill. Absent: tenderness, pedal edema, joint swelling, calf tenderness Back exam: Present: normal inspection Neurological exam: Present: alert, oriented X3, CN II-XII intact Psychiatric exam: Present: normal affect, normal mood Skin exam: Present: warm, dry, intact, normal color. Absent: rash Course Vital Signs 11/17/19 11/17/19 07:35 08:23 Temperature 98.3 F Pulse Rate 66 64 Respiratory 18 18 Rate Blood Pressure 122/83 121/79 O2 Sat by Pulse 100 99 Oximetry - Reevaluation(s) Reevaluation #1: 11/17/19 08:14 The patient was offered pain medication and she does not want any at this time. Chest Pain MDM - MDM I did review the imaging and report no acute findings. The patient is resting comfortably we did discuss the findings. The potassium and magnesium levels are at the low end of normal otherwise the workup was negative patient will be discharged the presentation is consistent with costochondritis Disposition Clinical Impression: Chest wall syndrome, Costochondritis Disposition: HOME SELF-CARE Condition: Good Instructions (If sedation given, give patient instructions): Costochondritis (ED) Prescriptions: Ibuprofen [Motrin] 600 mg PO Q6HR PRN #20 tab PRN Reason: Pain Is patient prescribed a controlled substance at d/c from ED?: No Referrals: Keisha Castro DO [Primary Care Provider] - 1-2 days
[2019-11-17 08:15] LABS: Basophils % (A) 1 %; Eosinophils # (A) 0.1 k/uL (0-0.7); Eosinophils % (A) 1 %; HCT 37.1 % (34.0-46.0); HGB 12.6 gm/dL (11.4-16.0); Lymphocytes # (A) 1.3 k/uL (1.0-4.8); Lymphocytes % (A) 27 %; MCHC 33.9 g/dL (31.0-37.0); MCV 88.2 fL (80.0-100.0); Mean Platelet Volume 7.2; Monocytes # (A) 0.2 k/uL (0-1.0); Monocytes % (A) 5 %; Neutrophils # (A) 3.2 k/uL (1.3-7.7); Neutrophils % (A) 65 %; Platelet Count 290 k/uL (150-450); RDW 12.6 % (11.5-15.5); WBC 4.9 k/uL (3.8-10.6)
[2019-11-17 08:27] LABS: ALT 12 U/L (4-34); AST 19 U/L (14-36); African American GFR (CKD) >90 (>60 ml/min/1.73 sqM); Albumin 2.4 g/dL (3.5-5.0); Alkaline Phosphatase 52 U/L (38-126); Anion Gap 2 mmol/L; Blood Urea Nitrogen 13 mg/dL (7-17); Calcium 8.2 mg/dL (8.4-10.2); Carbon Dioxide 25 mmol/L (22-30); Chloride 111 mmol/L (98-107); Creatine Kinase 96 U/L (30-135); Glucose 91 mg/dL (74-99); Magnesium 1.6 mg/dL (1.6-2.3); Non-African American GFR(CKD) >90 (>60 ml/min/1.73 sqM); Potassium 3.5 mmol/L (3.5-5.1); Sodium 138 mmol/L (137-145); Total Bilirubin 0.4 mg/dL (0.2-1.3); Total Protein 4.6 g/dL (6.3-8.2)
--- NOTE | 2019-11-17 08:31 | XR ---
EXAMINATION TYPE: XR chest 2V DATE OF EXAM: 11/17/2019 COMPARISON: 05/05/2018 HISTORY: 23-year-old female with chest pain TECHNIQUE: PA and lateral views FINDINGS: The cardiomediastinal silhouette, aorta, and pulmonary vasculature are within normal limits. Lungs an d pleural spaces are clear. IMPRESSION: No acute cardiopulmonary process.
[2019-11-17 08:42] LABS: D-Dimer 0.21 mg/L FEU (<0.60); INR 0.9 (<1.2); Prothrombin Time 9.7 sec (9.0-12.0)
[2019-11-17] MEDS ORDERED: IPRATROPIUM-ALBUTEROL 3 ML NEB INHALATION STA (08:53)
[2019-11-17 09:17] VITALS: BP 115/74; PULSE 70; TEMP 97.1
== END 2019-11-17 09:17 | disposition home or self-care (01) ==
LOC: EC 07:34
DX: M94.0 Chondrocostal junction syndrome [Tietze] (principal); R06.02 Shortness of breath; R11.0 Nausea
CPT/HCPCS: 36415; 71046; 80053; 82550; 83690; 83735; 83880; 84484; 85025; 85379; 85610; 85730; 93005; 99284

== ENCOUNTER → 2020-04-03 | Outpatient (CLI) | payer OTHER ==
--- NOTE | 2020-04-03 15:29 | XR ---
Right hand HISTORY: Trauma and pain fifth digit 3 views of the right hand Bone mineralization, joint spaces and alignment are maintained. IMPRESSION: No fracture or dislocation.
== END | disposition home or self-care (01) ==
LOC: RADXRMAIN 15:01
PROVIDERS: ATTEND Emergency Medicine
DX: S67.196A Crushing injury of right little finger, initial encounter (principal)

== ENCOUNTER 2020-07-19 12:34 | Emergency (ER) | payer OTHER ==
[2020-07-19 12:40] VITALS: RESP 18
[2020-07-19 14:08] LABS: Appearance,Urine Clear (Clear); Bacteria,Urine Rare /hpf; Basophils # (A) 0.1 k/uL (0-0.2); Basophils % (A) 1 %; Bilirubin,Urine Negative (Negative); Blood,Urine Moderate (Negative); Color,Urine Yellow; Eosinophils # (A) 0.1 k/uL (0-0.7); Eosinophils % (A) 2 %; Glucose,Urine (UA) Negative (Negative); HCT 36.3 % (34.0-46.0); HGB 12.7 gm/dL (11.4-16.0); Hyaline Casts,Urine 1 /lpf (0-2); Ketones,Urine Negative (Negative); Leukocyte Esterase,Urine Negative (Negative); Lymphocytes # (A) 1.7 k/uL (1.0-4.8); Lymphocytes % (A) 26 %; MCH 30.9 pg (25.0-35.0); MCHC 34.9 g/dL (31.0-37.0); MCV 88.4 fL (80.0-100.0); Mean Platelet Volume 6.8; Monocytes # (A) 0.3 k/uL (0-1.0); Monocytes % (A) 4 %; Mucus,Urine Occasional /hpf; Neutrophils # (A) 4.4 k/uL (1.3-7.7); Neutrophils % (A) 67 %; Nitrite,Urine Negative (Negative); Platelet Count 282 k/uL (150-450); Protein,Urine 3+ (Negative); RBC 4.11 m/uL (3.80-5.40); RBC,Urine 38 /hpf (0-5); RDW 12.1 % (11.5-15.5); Specific Gravity,Urine 1.021 (1.001-1.035); Squamous Epithelial Cell,Urine 1 /hpf (0-4); Urobilinogen,Urine <2.0 mg/dL (<2.0); WBC 6.5 k/uL (3.8-10.6); WBC,Urine 2 /hpf (0-5)
[2020-07-19 14:31] LABS: ALT 10 U/L (4-34); AST 23 U/L (14-36); African American GFR (CKD) >90 (>60 ml/min/1.73 sqM); Albumin 2.3 g/dL (3.5-5.0); Alkaline Phosphatase 57 U/L (38-126); Anion Gap -2 mmol/L; Blood Urea Nitrogen 13 mg/dL (7-17); Calcium 8.3 mg/dL (8.4-10.2); Carbon Dioxide 27 mmol/L (22-30); Chloride 111 mmol/L (98-107); Glucose 80 mg/dL (74-99); Non-African American GFR(CKD) >90 (>60 ml/min/1.73 sqM); Potassium 4.2 mmol/L (3.5-5.1); Sodium 136 mmol/L (137-145); Total Bilirubin 0.3 mg/dL (0.2-1.3); Total Protein 4.5 g/dL (6.3-8.2)
[2020-07-19 14:45] LABS: HCG,Quantitative Serum <2.4 mIU/mL
--- NOTE | 2020-07-19 15:02 | ED ---
Female Urogenital HPI - General Chief complaint: Vaginal Bleeding Stated complaint: Poss miscarriage, early preg Time Seen by Provider: 07/19/20 13:00 Source: patient Mode of arrival: ambulatory Limitations: no limitations - History of Present Illness Initial comments: Patient is a 24-year-old female presenting to the emergency Department with complaints of possible miscarriage. Patient states that 5 days ago she was having some cramping and spotting, she took 2 tests at home which were positive. Patient states then she retook the test about 3 days later and they're both negative. She states she went to a clinic today, had another urine test which was negative. She denies any further abdominal cramping, no bleeding today. She denies any fevers or chills. She is also requesting to have her kidney function checked as she has a "kidney disease" and just lost her insurance and is concerned for her kidney function. She denies any back pain, no abdominal pain, nausea or vomiting. She has no further complaints at this time. Upon arrival to the ER, her vital signs are stable. Last Menstrual Period: 07/03/20 - Related Data Home Medications Medication Instructions Recorded Confirmed medroxyPROGESTERone [Depo-Provera] 150 mg IM Q90D 11/17/19 11/17/19 Previous Rx's Medication Instructions Recorded Ibuprofen [Motrin] 600 mg PO Q6HR PRN #20 tab 11/17/19 Allergies Allergy/AdvReac Type Severity Reaction Status Date / Time No Known Allergies Allergy Verified 07/19/20 12:40 Review of Systems ROS Statement: Those systems with pertinent positive or pertinent negative responses have been documented in the HPI. ROS Other: All systems not noted in ROS Statement are negative. 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 HEr kidney function has remained normal in the and growth is also normal. She has been followed by [facility]. History of Any Multi-Drug Resistant Organisms: None Reported Past Surgical History: No Surgical Hx Reported Past Anesthesia/Blood Transfusion Reactions: No Reported Reaction Past Psychological History: No Psychological Hx Reported Smoking Status: Never smoker Past Alcohol Use History: Rare Past Drug Use History: None Reported - Past Family History Father History Unknown: Yes Additional Family Medical History / Comment(s): Alport syndrome General Exam - General Exam Comments Initial Comments: GENERAL: Patient is well-developed and well-nourished. Patient is nontoxic and in no acute distress. HEAD: Atraumatic, normocephalic. EYES: Pupils equal round and reactive to light, extraocular movements intact, sclera anicteric, conjunctiva are normal. Eyelids were unremarkable. ENT: TMs normal, nares patent, oropharynx clear without exudates. Moist mucous membranes. NECK: Normal range of motion, supple without lymphadenopathy or JVD. LUNGS: Unlabored respirations. Breath sounds clear to auscultation bilaterally and equal. No wheezes rales or rhonchi. HEART: Regular rate and rhythm without murmurs, rubs or gallops. ABDOMEN: Soft, nontender, normoactive bowel sounds. No guarding, no rebound. No masses appreciated. : Deferred MUSCULOSKELETAL: Normal extremities with adequate strength and normal range of motion, no pitting or edema. No clubbing or cyanosis. NEUROLOGICAL: Patient is alert and oriented x 3. Motor and sensory are also intact. Cranial nerves II through XII grossly intact. Symmetrical smile. Normal speech, normal gait. PSYCH: Normal mood, normal affect. SKIN: Warm, Dry, normal turgor, no rashes or lesions noted. Limitations: no limitations Course Vital Signs 07/19/20 12:36 Temperature 98.4 F Pulse Rate 97 Respiratory 18 Rate Blood Pressure 128/79 O2 Sat by Pulse 100 Oximetry Medical Decision Making - Medical Decision Making Patient is a 24-year-old female here for possible miscarriage. She had 2 positive home test about 5 days ago, some spotting. No pain today, no vaginal bleeding today. To check some labs on her which were normal, hCG Quant is less than 2.4. She does have moderate blood in her urine, no bacteria. I discussed with patient that she is not this time. It is possible have a false positive test or a miscarriage is possible. I recommend following up with her PCP. Return parameters were discussed with the patient she verbalized understanding. Case discussed with Dr. Nixon. - Lab Data Result diagrams: 07/19/20 13:52 07/19/20 13:52 Lab Results 07/19/20 07/19/20 07/19/20 Range/Units 13:52 13:52 13:52 WBC 6.5 (3.8-10.6) k/uL RBC 4.11 (3.80-5.40) m/uL Hgb 12.7 (11.4-16.0) gm/dL Hct 36.3 (34.0-46.0) % MCV 88.4 (80.0-100.0) fL MCH 30.9 (25.0-35.0) pg MCHC 34.9 (31.0-37.0) g/dL RDW 12.1 (11.5-15.5) % Plt Count 282 (150-450) k/uL MPV 6.8 Neutrophils % 67 % Lymphocytes % 26 % Monocytes % 4 % Eosinophils % 2 % Basophils % 1 % Neutrophils # 4.4 (1.3-7.7) k/uL Lymphocytes # 1.7 (1.0-4.8) k/uL Monocytes # 0.3 (0-1.0) k/uL Eosinophils # 0.1 (0-0.7) k/uL Basophils # 0.1 (0-0.2) k/uL Sodium 136 L (137-145) mmol/L Potassium 4.2 (3.5-5.1) mmol/L Chloride 111 H (98-107) mmol/L Carbon Dioxide 27 (22-30) mmol/L Anion Gap -2 mmol/L BUN 13 (7-17) mg/dL Creatinine 0.64 (0.52-1.04) mg/dL Est GFR (CKD-EPI)AfAm >90 (>60 ml/min/1.73 sqM) Est GFR (CKD-EPI)NonAf >90 (>60 ml/min/1.73 sqM) Glucose 80 (74-99) mg/dL Calcium 8.3 L (8.4-10.2) mg/dL Total Bilirubin 0.3 (0.2-1.3) mg/dL AST 23 (14-36) U/L ALT 10 (4-34) U/L Alkaline Phosphatase 57 (38-126) U/L Total Protein 4.5 L (6.3-8.2) g/dL Albumin 2.3 L (3.5-5.0) g/dL HCG, Quant <2.4 mIU/mL Urine Color Yellow Urine Appearance Clear (Clear) Urine pH 7.0 (5.0-8.0) Ur Specific [place] 1.021 (1.001-1.035) Urine Protein 3+ H (Negative) Urine Glucose (UA) Negative (Negative) Urine Ketones Negative (Negative) Urine Blood Moderate H (Negative) Urine Nitrite Negative (Negative) Urine Bilirubin Negative (Negative) Urine Urobilinogen <2.0 (<2.0) mg/dL Ur Leukocyte Esterase Negative (Negative) Urine RBC 38 H (0-5) /hpf Urine WBC 2 (0-5) /hpf Ur Squamous Epith Cells 1 (0-4) /hpf Urine Bacteria Rare H (None) /hpf Hyaline Casts 1 (0-2) /lpf Urine Mucus Occasional H (None) /hpf Disposition Clinical Impression: Dysfunctional uterine bleeding Disposition: HOME SELF-CARE Condition: Stable Instructions (If sedation given, give patient instructions): Dysmenorrhea (ED) Additional Instructions: Please return to the Emergency Department if symptoms worsen or any other concerns. Follow-up with your regular doctor. Is patient prescribed a controlled substance at d/c from ED?: No Referrals: Gina Doss DO [Primary Care Provider] - 1-2 days Time of Disposition: 15:02
[2020-07-19 15:50] VITALS: BP 126/80; PULSE 72; TEMP 98.2
== END 2020-07-19 15:49 | disposition home or self-care (01) ==
LOC: EC 12:34
DX: N93.8 Other specified abnormal uterine and vaginal bleeding (principal)
CPT/HCPCS: 36415; 80053; 81001; 84702; 85025; 99283

== ENCOUNTER → 2020-07-26 | Outpatient (CLI) | payer OTHER | END | disposition home or self-care (01) | LOC: LABWHC1 10:54 | PROVIDERS: ATTEND Obstetrics & Gynecology | DX: O20.0 Threatened abortion (principal); Z3A.00 Weeks of gestation of pregnancy not specified | CPT/HCPCS: 36415; 84702 ==

== ENCOUNTER 2020-12-14 13:15 | Emergency (ER) | payer OTHER ==
[2020-12-14 13:22] VITALS: PULSE 70; RESP 18
[2020-12-14 13:59] LABS: Basophils # (A) 0.1 k/uL (0-0.2); Basophils % (A) 1 %; Eosinophils # (A) 0.1 k/uL (0-0.7); Eosinophils % (A) 1 %; HCT 37.9 % (34.0-46.0); HGB 12.9 gm/dL (11.4-16.0); Lymphocytes % (A) 30 %; MCH 30.5 pg (25.0-35.0); MCHC 34.1 g/dL (31.0-37.0); MCV 89.2 fL (80.0-100.0); Monocytes # (A) 0.2 k/uL (0-1.0); Monocytes % (A) 3 %; Neutrophils # (A) 4.4 k/uL (1.3-7.7); Neutrophils % (A) 64 %; Platelet Count 343 k/uL (150-450); RBC 4.25 m/uL (3.80-5.40); RDW 12.2 % (11.5-15.5); WBC 6.8 k/uL (3.8-10.6)
[2020-12-14 14:01] LABS: Appearance,Urine Clear (Clear); Bilirubin,Urine Negative (Negative); Blood,Urine Moderate (Negative); Color,Urine Light Yellow; Glucose,Urine (UA) Negative (Negative); Hyaline Casts,Urine 3 /lpf (0-2); Ketones,Urine Negative (Negative); Leukocyte Esterase,Urine Negative (Negative); Mucus,Urine Rare /hpf; Nitrite,Urine Negative (Negative); PH, Urine 6.5 (5.0-8.0); Protein,Urine 3+ (Negative); RBC,Urine 15 /hpf (0-5); Specific Gravity,Urine 1.013 (1.001-1.035); Squamous Epithelial Cell,Urine 1 /hpf (0-4); Urobilinogen,Urine <2.0 mg/dL (<2.0); WBC,Urine 1 /hpf (0-5)
--- NOTE | 2020-12-14 14:14 | ED ---
General Adult HPI - General Chief complaint: Vaginal Bleeding Stated complaint: newly preg, spotting Time Seen by Provider: 12/14/20 13:27 Source: patient Mode of arrival: ambulatory Limitations: no limitations - History of Present Illness Initial comments: 25 year-old female patient presents to the emergency department today for evaluation of lower abdominal cramping and spotting. States that she had positive test at home, three tests showed faint lines. States that her last period was 2-3 weeks ago. States it was much pathology specialist than usual. States that a few hours ago she noticed light pink blood on the toilet paper. Reports lower abdominal cramping, no radiation to the back. Did have a miscarriage in June. . Patient denies any recent rash, fever, chills, cough, shortness of breath, chest pain, nausea, vomiting, diarrhea, constipation, back pain, numbness, tingling, dizziness, weakness, hematuria, dysuria, urinary urgency, urinary frequency, headache, visual changes, or any other complaints. - Related Data Home Medications Medication Instructions Recorded Confirmed medroxyPROGESTERone [Depo-Provera] 150 mg IM Q90D 11/17/19 11/17/19 Previous Rx's Medication Instructions Recorded Ibuprofen [Motrin] 600 mg PO Q6HR PRN #20 tab 11/17/19 Allergies Allergy/AdvReac Type Severity Reaction Status Date / Time No Known Allergies Allergy Verified 12/14/20 13:22 Review of Systems ROS Statement: Those systems with pertinent positive or pertinent negative responses have been documented in the HPI. ROS Other: All systems not noted in ROS Statement are negative. 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 HEr kidney function has remained normal in the and growth is also normal. She has been followed by [facility]. History of Any Multi-Drug Resistant Organisms: None Reported Past Surgical History: No Surgical Hx Reported Past Anesthesia/Blood Transfusion Reactions: No Reported Reaction Past Psychological History: No Psychological Hx Reported Smoking Status: Never smoker Past Alcohol Use History: Rare Past Drug Use History: None Reported - Past Family History Father History Unknown: Yes Additional Family Medical History / Comment(s): Alport syndrome General Exam Limitations: no limitations General appearance: alert, in no apparent distress, other (This is a well- developed, well-nourished adult female patient in no acute distress. Vital signs upon presentation temperature 98.2F, pulse 70, respirations 18, blood pressure 125/80, pulse ox 98% on room air.) Eye exam: Present: normal appearance, PERRL, EOMI. Absent: scleral icterus, conjunctival injection, periorbital swelling ENT exam: Present: normal exam, normal oropharynx, mucous membranes moist Respiratory exam: Present: normal lung sounds bilaterally. Absent: respiratory distress, wheezes, rales, rhonchi, stridor Cardiovascular Exam: Present: regular rate, normal rhythm, normal heart sounds. Absent: systolic murmur, diastolic murmur, rubs, gallop, clicks GI/Abdominal exam: Present: soft, normal bowel sounds. Absent: distended, tenderness, guarding, rebound, rigid Neurological exam: Present: alert, oriented X3, CN II-XII intact Psychiatric exam: Present: normal affect, normal mood Skin exam: Present: warm, dry, intact, normal color. Absent: rash Course Vital Signs 12/14/20 13:20 Temperature 98.2 F Pulse Rate 70 Respiratory 18 Rate Blood Pressure 125/80 O2 Sat by Pulse 98 Oximetry Medical Decision Making - Medical Decision Making 25-year-old female patient presented to the emergency department today for evaluation of lower abdominal cramping and spotting. Patient did have three faint positive tests at home. Physical exam is unremarkable. Labs reviewed showed negative serum and urine hCG here. I did inform her of results. She'll be discharged follow up with her [facility] for recheck in 1-2 days. Return parameters were discussed in detail. She verbalizes understanding and agrees with this plan. Case discussed with my attending Dr. Watts. - Lab Data Result diagrams: 12/14/20 13:43 12/14/20 13:43 Lab Results 12/14/20 12/14/20 12/14/20 Range/Units 13:43 13:43 13:43 WBC 6.8 (3.8-10.6) k/uL RBC 4.25 (3.80-5.40) m/uL Hgb 12.9 (11.4-16.0) gm/dL Hct 37.9 (34.0-46.0) % MCV 89.2 (80.0-100.0) fL MCH 30.5 (25.0-35.0) pg MCHC 34.1 (31.0-37.0) g/dL RDW 12.2 (11.5-15.5) % Plt Count 343 (150-450) k/uL MPV 7.0 Neutrophils % 64 % Lymphocytes % 30 % Monocytes % 3 % Eosinophils % 1 % Basophils % 1 % Neutrophils # 4.4 (1.3-7.7) k/uL Lymphocytes # 2.0 (1.0-4.8) k/uL Monocytes # 0.2 (0-1.0) k/uL Eosinophils # 0.1 (0-0.7) k/uL Basophils # 0.1 (0-0.2) k/uL Sodium 135 L (137-145) mmol/L Potassium 3.7 (3.5-5.1) mmol/L Chloride 110 H (98-107) mmol/L Carbon Dioxide 22 (22-30) mmol/L Anion Gap 3 mmol/L BUN 16 (7-17) mg/dL Creatinine 0.73 (0.52-1.04) mg/dL Est GFR (CKD-EPI)AfAm >90 (>60 ml/min/1.73 sqM) Est GFR (CKD-EPI)NonAf >90 (>60 ml/min/1.73 sqM) Glucose 87 (74-99) mg/dL Calcium 8.4 (8.4-10.2) mg/dL Total Bilirubin 0.3 (0.2-1.3) mg/dL AST 22 (14-36) U/L ALT 14 (4-34) U/L Alkaline Phosphatase 56 (38-126) U/L Total Protein 5.0 L (6.3-8.2) g/dL Albumin 2.6 L (3.5-5.0) g/dL HCG, Quant <2.4 mIU/mL Urine Color Light Yellow Urine Appearance Clear (Clear) Urine pH 6.5 (5.0-8.0) Ur Specific Jerome 1.013 (1.001-1.035) Urine Protein 3+ H (Negative) Urine Glucose (UA) Negative (Negative) Urine Ketones Negative (Negative) Urine Blood Moderate H (Negative) Urine Nitrite Negative (Negative) Urine Bilirubin Negative (Negative) Urine Urobilinogen <2.0 (<2.0) mg/dL Ur Leukocyte Esterase Negative (Negative) Urine RBC 15 H (0-5) /hpf Urine WBC 1 (0-5) /hpf Ur Squamous Epith Cells 1 (0-4) /hpf Hyaline Casts 3 H (0-2) /lpf Urine Mucus Rare H (None) /hpf Urine HCG, Qual (Not Detectd) Blood Type Blood Type Recheck Bld Type Recheck Status 12/14/20 12/14/20 Range/Units 13:43 13:43 WBC (3.8-10.6) k/uL RBC (3.80-5.40) m/uL Hgb (11.4-16.0) gm/dL Hct (34.0-46.0) % MCV (80.0-100.0) fL MCH (25.0-35.0) pg MCHC (31.0-37.0) g/dL RDW (11.5-15.5) % Plt Count (150-450) k/uL MPV Neutrophils % % Lymphocytes % % Monocytes % % Eosinophils % % Basophils % % Neutrophils # (1.3-7.7) k/uL Lymphocytes # (1.0-4.8) k/uL Monocytes # (0-1.0) k/uL Eosinophils # (0-0.7) k/uL Basophils # (0-0.2) k/uL Sodium (137-145) mmol/L Potassium (3.5-5.1) mmol/L Chloride (98-107) mmol/L Carbon Dioxide (22-30) mmol/L Anion Gap mmol/L BUN (7-17) mg/dL Creatinine (0.52-1.04) mg/dL Est GFR (CKD-EPI)AfAm (>60 ml/min/1.73 sqM) Est GFR (CKD-EPI)NonAf (>60 ml/min/1.73 sqM) Glucose (74-99) mg/dL Calcium (8.4-10.2) mg/dL Total Bilirubin (0.2-1.3) mg/dL AST (14-36) U/L ALT (4-34) U/L Alkaline Phosphatase (38-126) U/L Total Protein (6.3-8.2) g/dL Albumin (3.5-5.0) g/dL HCG, Quant mIU/mL Urine Color Urine Appearance (Clear) Urine pH (5.0-8.0) Ur Specific Jerome (1.001-1.035) Urine Protein (Negative) Urine Glucose (UA) (Negative) Urine Ketones (Negative) Urine Blood (Negative) Urine Nitrite (Negative) Urine Bilirubin (Negative) Urine Urobilinogen (<2.0) mg/dL Ur Leukocyte Esterase (Negative) Urine RBC (0-5) /hpf Urine WBC (0-5) /hpf Ur Squamous Epith Cells (0-4) /hpf Hyaline Casts (0-2) /lpf Urine Mucus (None) /hpf Urine HCG, Qual Not Detected (Not Detectd) Blood Type O Positive Blood Type Recheck O Pos Bld Type Recheck Status No Disposition Clinical Impression: Vaginal spotting Disposition: HOME SELF-CARE Condition: Good Instructions (If sedation given, give patient instructions): Dysfunctional Uterine Bleeding (ED) Additional Instructions: Follow-up with [facility] for recheck as soon as possible. Return for any new, worsening, or concerning symptoms. Is patient prescribed a controlled substance at d/c from ED?: No Referrals: Gina Doss DO [Primary Care Provider] - 1-2 days Time of Disposition: 15:03
[2020-12-14 14:26] LABS: HCG,Quantitative Serum <2.4 mIU/mL
[2020-12-14 14:50] LABS: ALT 14 U/L (4-34); AST 22 U/L (14-36); African American GFR (CKD) >90 (>60 ml/min/1.73 sqM); Albumin 2.6 g/dL (3.5-5.0); Alkaline Phosphatase 56 U/L (38-126); Anion Gap 3 mmol/L; Blood Urea Nitrogen 16 mg/dL (7-17); Calcium 8.4 mg/dL (8.4-10.2); Carbon Dioxide 22 mmol/L (22-30); Chloride 110 mmol/L (98-107); Glucose 87 mg/dL (74-99); Non-African American GFR(CKD) >90 (>60 ml/min/1.73 sqM); Potassium 3.7 mmol/L (3.5-5.1); Sodium 135 mmol/L (137-145); Total Bilirubin 0.3 mg/dL (0.2-1.3)
[2020-12-14 15:43] VITALS: BP 119/78; TEMP 98.6
== END 2020-12-14 15:25 | disposition home or self-care (01) ==
LOC: EC 13:15
DX: O26.851 Spotting complicating pregnancy, first trimester (principal); Z3A.01 Less than 8 weeks gestation of pregnancy
CPT/HCPCS: 36415; 80053; 81001; 81025; 84702; 85025; 86900; 86901; 99284

== ENCOUNTER 2021-03-05 11:40 | Emergency (ER) | payer OTHER ==
[2021-03-05 11:48] VITALS: RESP 18; TEMP 98.8
[2021-03-05] MEDS ORDERED: ONDANSETRON 4 MG/2 ML VIAL IVP STA (12:06)
[2021-03-05] MEDS ORDERED: ASPIRIN 81 MG PO STA (12:06)
[2021-03-05] MEDS ORDERED: KETOROLAC 15 MG/ML 1 ML VIAL IVP STA (12:07)
[2021-03-05] MEDS ORDERED: SODIUM CHLORIDE 0.9% 1,000 ML IV STA (12:08)
[2021-03-05 12:45] LABS: Basophils % (A) 0 %; Eosinophils # (A) 0.2 k/uL (0-0.7); Eosinophils % (A) 2 %; HCT 43.3 % (34.0-46.0); HGB 14.7 gm/dL (11.4-16.0); Lymphocytes # (A) 1.5 k/uL (1.0-4.8); Lymphocytes % (A) 17 %; MCH 30.3 pg (25.0-35.0); MCHC 33.9 g/dL (31.0-37.0); MCV 89.5 fL (80.0-100.0); Mean Platelet Volume 7.1; Monocytes # (A) 0.2 k/uL (0-1.0); Monocytes % (A) 2 %; Neutrophils % (A) 78 %; Platelet Count 402 k/uL (150-450); RBC 4.84 m/uL (3.80-5.40); RDW 11.9 % (11.5-15.5); WBC 8.9 k/uL (3.8-10.6)
[2021-03-05 13:03] LABS: INR 0.9 (<1.2); Partial Thromboplastin Time 24.1 sec (22.0-30.0); Prothrombin Time 9.8 sec (9.0-12.0)
[2021-03-05 13:04] LABS: ALT 14 U/L (4-34); AST 22 U/L (14-36); African American GFR (CKD) >90 (>60 ml/min/1.73 sqM); Albumin 2.5 g/dL (3.5-5.0); Alkaline Phosphatase 62 U/L (38-126); Anion Gap 2 mmol/L; Blood Urea Nitrogen 22 mg/dL (7-17); Calcium 8.6 mg/dL (8.4-10.2); Carbon Dioxide 25 mmol/L (22-30); Chloride 109 mmol/L (98-107); Glucose 90 mg/dL (74-99); HCG,Qualitative Serum Not Detected; Magnesium 1.6 mg/dL (1.6-2.3); Non-African American GFR(CKD) >90 (>60 ml/min/1.73 sqM); Sodium 136 mmol/L (137-145); Total Bilirubin 0.4 mg/dL (0.2-1.3); Total Protein 5.1 g/dL (6.3-8.2)
--- NOTE | 2021-03-05 13:46 | XR ---
EXAMINATION TYPE: XR chest 2V DATE OF EXAM: 03/05/2021 COMPARISON: Chest x-ray November 17, 2019 HISTORY: Chest pain. TECHNIQUE: Frontal and lateral views of the chest are obtained. FINDINGS: Overlying EKG leads are redemonstrated. There is no new suspicious focal air space opacity, pleural effusion, or pneumothorax seen. The cardiac silhouette size remains within normal limits. The osseous structures are intact. IMPRESSION: No acute process. No significant change from prior.
--- NOTE | 2021-03-05 14:24 | ED ---
General Adult HPI - General Chief complaint: Chest Pain Stated complaint: chest pain Time Seen by Provider: 03/05/21 11:49 Source: patient, RN notes reviewed, old records reviewed Mode of arrival: ambulatory Limitations: no limitations - History of Present Illness Initial comments: She is a 25-year-old female who presents [facility] complaining of chest pain. She has no prior history of anxiety, cardiac illness, blood clots. Patient was recently diagnosed Covid. He is having some nausea and vomiting today. Chest pain began during an episode of bad nausea. States it lasted for a few minutes. States is now barely there. Did not take anything and does not know any palliative or provocative factors. Described as a pressure sensation over her mid chest that did not radiate. Denied any shortness of breath with it. Denied any diarrhea. She has been time by mouth intake. She had lunch prior to arrival. She presents immersed department over concern for chest pain. Chest pain occurred approximately 1-2 hours ago. - Related Data Home Medications Medication Instructions Recorded Confirmed No Known Home Medications 03/05/21 03/05/21 Allergies Allergy/AdvReac Type Severity Reaction Status Date / Time No Known Allergies Allergy Verified 03/05/21 13:20 Review of Systems ROS Statement: Those systems with pertinent positive or pertinent negative responses have been documented in the HPI. Review of Systems: CONST: Denies fever EYES: Denies blurry vision ENT: Denies nasal congestion C/V: Endorses resolving chest pain. RESP: Denies shortness of breath GI: Denies abdominal pain : Denies dysuria SKIN: Denies rash. MSK: Denies joint pain. NEURO: Denies headache ROS Other: All systems not noted in ROS Statement are negative. 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 HEr kidney function has remained normal in the and growth is also normal. She has been followed by [facility]. History of Any Multi-Drug Resistant Organisms: None Reported Past Surgical History: No Surgical Hx Reported Past Anesthesia/Blood Transfusion Reactions: No Reported Reaction Past Psychological History: No Psychological Hx Reported Smoking Status: Never smoker Past Alcohol Use History: Rare Past Drug Use History: None Reported - Past Family History Father History Unknown: Yes Additional Family Medical History / Comment(s): Alport syndrome General Exam - General Exam Comments Initial Comments: General: Appears in no acute distress. HEAD: Normal with no signs of head trauma. EYES: PERRLA, EOMI, conjunctiva normal, no discharge. ENT: Hearing grossly intact, normal oropharynx. RESPIRATORY: Clear breath sounds bilaterally. No wheezes, rales, or rhonchi. C/V: Regular rate and rhythm. S1 and S2 auscultated, no edema, peripheral pulses 2+ and intact throughout ABD: Abd is soft, nontender, nondistended EXT: Normal range of motion, no obvious deformity SKIN: No rashes or lesions observed on exposed skin. NEURO: Alert and oriented x 4. Cranial nerves II-XII intact. No focal sensory or strength deficits. Limitations: no limitations Course Vital Signs 03/05/21 03/05/21 03/05/21 11:44 13:17 14:38 Temperature 98.8 F Pulse Rate 97 81 93 Respiratory 18 18 18 Rate Blood Pressure 133/86 111/75 116/77 O2 Sat by Pulse 97 97 97 Oximetry Medical Decision Making - Medical Decision Making Based on the patient's presentation and physical exam, I'm concerned for possible cardiac illness for current complaints. Patient is low risk for PE, however we will obtain a screening D-dimer test that she recently had a COVID-19 illness. She is well-hydrated, however will be given a 1 L fluid bolus as well as IV Zofran, Toradol, aspirin. Patient was in agreement this plan. Patient's EKG shows no signs of acute ischemia and laboratory studies are remarkable for a normal d-dimer as well as a negative troponin. She is not . Chest x-ray reveals no acute cardio pulmonary process. On reevaluation come patient's chest pain is resolved. Heart score is 0. I believe is safer to be discharged home. She was in agreement this plan. I instructed the patient to follow up with their PCP in the next 3 days. I explained that the patient should return to the emergency department if they experience any worsening symptoms. Strict return precautions were discussed with the patient. The patient expressed understanding of these instructions. I answered all questions that the patient had. The patient was discharged home in good condition with their prescriptions and follow up information. - Lab Data Result diagrams: 03/05/21 12:33 03/05/21 12:33 Lab Results 03/05/21 03/05/21 03/05/21 Range/Units 12:33 12:33 12:33 WBC 8.9 (3.8-10.6) k/uL RBC 4.84 (3.80-5.40) m/uL Hgb 14.7 (11.4-16.0) gm/dL Hct 43.3 (34.0-46.0) % MCV 89.5 (80.0-100.0) fL MCH 30.3 (25.0-35.0) pg MCHC 33.9 (31.0-37.0) g/dL RDW 11.9 (11.5-15.5) % Plt Count 402 (150-450) k/uL MPV 7.1 Neutrophils % 78 % Lymphocytes % 17 % Monocytes % 2 % Eosinophils % 2 % Basophils % 0 % Neutrophils # 7.0 (1.3-7.7) k/uL Lymphocytes # 1.5 (1.0-4.8) k/uL Monocytes # 0.2 (0-1.0) k/uL Eosinophils # 0.2 (0-0.7) k/uL Basophils # 0.0 (0-0.2) k/uL PT 9.8 (9.0-12.0) sec INR 0.9 (<1.2) APTT 24.1 (22.0-30.0) sec D-Dimer 0.49 (<0.60) mg/L FEU Sodium 136 L (137-145) mmol/L Potassium 4.0 (3.5-5.1) mmol/L Chloride 109 H (98-107) mmol/L Carbon Dioxide 25 (22-30) mmol/L Anion Gap 2 mmol/L BUN 22 H (7-17) mg/dL Creatinine 0.85 (0.52-1.04) mg/dL Est GFR (CKD-EPI)AfAm >90 (>60 ml/min/1.73 sqM) Est GFR (CKD-EPI)NonAf >90 (>60 ml/min/1.73 sqM) Glucose 90 (74-99) mg/dL Calcium 8.6 (8.4-10.2) mg/dL Magnesium 1.6 (1.6-2.3) mg/dL Total Bilirubin 0.4 (0.2-1.3) mg/dL AST 22 (14-36) U/L ALT 14 (4-34) U/L Alkaline Phosphatase 62 (38-126) U/L Troponin I (0.000-0.034) ng/mL Total Protein 5.1 L (6.3-8.2) g/dL Albumin 2.5 L (3.5-5.0) g/dL HCG, Qual Not Detected 03/05/21 Range/Units 12:33 WBC (3.8-10.6) k/uL RBC (3.80-5.40) m/uL Hgb (11.4-16.0) gm/dL Hct (34.0-46.0) % MCV (80.0-100.0) fL MCH (25.0-35.0) pg MCHC (31.0-37.0) g/dL RDW (11.5-15.5) % Plt Count (150-450) k/uL MPV Neutrophils % % Lymphocytes % % Monocytes % % Eosinophils % % Basophils % % Neutrophils # (1.3-7.7) k/uL Lymphocytes # (1.0-4.8) k/uL Monocytes # (0-1.0) k/uL Eosinophils # (0-0.7) k/uL Basophils # (0-0.2) k/uL PT (9.0-12.0) sec INR (<1.2) APTT (22.0-30.0) sec D-Dimer (<0.60) mg/L FEU Sodium (137-145) mmol/L Potassium (3.5-5.1) mmol/L Chloride (98-107) mmol/L Carbon Dioxide (22-30) mmol/L Anion Gap mmol/L BUN (7-17) mg/dL Creatinine (0.52-1.04) mg/dL Est GFR (CKD-EPI)AfAm (>60 ml/min/1.73 sqM) Est GFR (CKD-EPI)NonAf (>60 ml/min/1.73 sqM) Glucose (74-99) mg/dL Calcium (8.4-10.2) mg/dL Magnesium (1.6-2.3) mg/dL Total Bilirubin (0.2-1.3) mg/dL AST (14-36) U/L ALT (4-34) U/L Alkaline Phosphatase (38-126) U/L Troponin I <0.012 (0.000-0.034) ng/mL Total Protein (6.3-8.2) g/dL Albumin (3.5-5.0) g/dL HCG, Qual - EKG Data -: EKG Interpreted by Me EKG Comments: 12-lead Electrocardiogram Interpretation Note EKG was reviewed and interpreted by myself. 12-lead ECG performed at 1154 is interpreted by me as revealing normal sinus rhythm at a rate of 92 beats per minute. Egan is normal. WA interval is 118 ms, QRS duration is 94 ms, QTc is 447 ms.. There were no ST or T wave abnormalities to suggest myocardial ischemia or injury. R wave progression across the precordium was satisfactory. By my interpretation this EKG is non-diagnostic for acute ischemia. There was a possible incomplete right bundle branch block present morphology in lead V2. Disposition Clinical Impression: Chest pain of unknown etiology, Musculoskeletal pain Disposition: HOME SELF-CARE Condition: Good Instructions (If sedation given, give patient instructions): Chest Pain (ED) Is patient prescribed a controlled substance at d/c from ED?: No Referrals: Gina Doss DO [Primary Care Provider] - 1-2 days
[2021-03-05 14:39] VITALS: BP 116/77; PULSE 93
== END 2021-03-05 14:39 | disposition home or self-care (01) ==
LOC: EC 11:40
DX: R07.89 Other chest pain (principal)
CPT/HCPCS: 36415; 93005; 85379; 80053; 83735; 84484; 85025; 85610; 85730; 84703; 71046; 99285; 96374; 96375; J2405; J1885

== ENCOUNTER 2021-08-30 14:30 | Emergency (ER) | payer OTHER ==
[2021-08-30 14:48] VITALS: TEMP 98.2
[2021-08-30 15:27] LABS: Appearance,Urine Cloudy (Clear); Bacteria,Urine Rare /hpf; Bilirubin,Urine Negative (Negative); Blood,Urine Large (Negative); Color,Urine Yellow; Glucose,Urine (UA) Negative (Negative); Hyaline Casts,Urine 5 /lpf (0-2); Ketones,Urine Negative (Negative); Leukocyte Esterase,Urine Small (Negative); Mucus,Urine Rare /hpf; Nitrite,Urine Negative (Negative); PH, Urine 6.5 (5.0-8.0); Protein,Urine 3+ (Negative); RBC,Urine 35 /hpf (0-5); Specific Gravity,Urine 1.018 (1.001-1.035); Squamous Epithelial Cell,Urine 2 /hpf (0-4); Urobilinogen,Urine <2.0 mg/dL (<2.0); WBC,Urine 11 /hpf (0-5)
--- NOTE | 2021-08-30 16:09 | ED ---
General Adult HPI - General Chief complaint: Abdominal Pain Stated complaint: Abd Pain//Elbow to stomach@work Time Seen by Provider: 08/30/21 15:53 Source: patient, RN notes reviewed, old records reviewed Mode of arrival: ambulatory Limitations: no limitations - History of Present Illness Initial comments: 25-year-old female presenting for evaluation of abdominal pain. Patient is currently but uncertain exactly how far along she has pain she had a home test. 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 She did develop abdominal pain. No vaginal bleeding. No vomiting. She's had no preceding symptoms. This is her third with one previous miscarriage. not Yet followed with obstetrics. - Related Data Home Medications Medication Instructions Recorded Confirmed Izb-[id number] Acid 1 cap PO DAILY 08/30/21 08/30/21 [-U Capsule (formulary)] Previous Rx's Medication Instructions Recorded Cephalexin [Keflex] 500 mg PO Q12HR #14 cap 08/30/21 Allergies Allergy/AdvReac Type Severity Reaction Status Date / Time No Known Allergies Allergy Verified 08/30/21 17:00 Review of Systems ROS Statement: Those systems with pertinent positive or pertinent negative responses have been documented in the HPI. ROS Other: All systems not noted in ROS Statement are negative. 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 HEr kidney function has remained normal in the and growth is also normal. She has been followed by [facility]. History of Any Multi-Drug Resistant Organisms: None Reported Past Surgical History: No Surgical Hx Reported Past Anesthesia/Blood Transfusion Reactions: No Reported Reaction Past Psychological History: No Psychological Hx Reported Smoking Status: Never smoker Past Alcohol Use History: Rare Past Drug Use History: None Reported - Past Family History Father History Unknown: Yes Additional Family Medical History / Comment(s): Alport syndrome General Exam Limitations: no limitations General appearance: alert, in no apparent distress Head exam: Present: atraumatic, normocephalic Eye exam: Present: normal appearance, PERRL ENT exam: Present: normal exam Neck exam: Present: normal inspection. Absent: tenderness, meningismus Respiratory exam: Present: normal lung sounds bilaterally. Absent: respiratory distress, wheezes Cardiovascular Exam: Present: regular rate, normal rhythm GI/Abdominal exam: Present: soft, tenderness (Mild mid abdominal tenderness). Absent: distended, guarding, rebound Extremities exam: Present: normal inspection, normal capillary refill. Absent: pedal edema Neurological exam: Present: alert, oriented X3, CN II-XII intact. Absent: motor sensory deficit Psychiatric exam: Present: normal affect, normal mood Skin exam: Present: warm, dry, intact. Absent: cyanosis, diaphoretic Course Vital Signs 08/30/21 14:45 Temperature 98.2 F Pulse Rate 65 Respiratory 18 Rate Blood Pressure 121/70 O2 Sat by Pulse 97 Oximetry Medical Decision Making - Medical Decision Making 25-year-old female with early and abdominal trauma. She has minimal tenderness, no rebound or guarding. I did perform workup including laboratory testing and ultrasound. She has a beta Quant of 4600. She does have a urinalysis showing no protein, red blood cells and rare bacteria. She states that as a child she was evaluated by nephrology for Alport syndrome. I did recommend she follow with her primary regarding this. Early and ultrasound findings, ultrasound failed to visualize an IUP. There was a cystic structure in the right ovary. There is a low suspicion for ectopic . I discussed case with Dr. Pena who is covering for Dr. Delatorre. At this time I will recommend serial beta hCG testing and strict return parameters. Patient is agreeable with this plan. She will follow with obstetrics next week. - Lab Data Result diagrams: 08/30/21 17:16 08/30/21 17:16 Lab Results 08/30/21 08/30/21 08/30/21 Range/Units 15:05 15:05 17:16 WBC 6.4 (3.8-10.6) k/uL RBC 3.80 (3.80-5.40) m/uL Hgb 11.8 (11.4-16.0) gm/dL Hct 34.0 (34.0-46.0) % MCV 89.5 (80.0-100.0) fL MCH 31.0 (25.0-35.0) pg MCHC 34.6 (31.0-37.0) g/dL RDW 12.5 (11.5-15.5) % Plt Count 314 (150-450) k/uL MPV 7.0 Neutrophils % 64 % Lymphocytes % 29 % Monocytes % 3 % Eosinophils % 1 % Basophils % 1 % Neutrophils # 4.1 (1.3-7.7) k/uL Lymphocytes # 1.9 (1.0-4.8) k/uL Monocytes # 0.2 (0-1.0) k/uL Eosinophils # 0.1 (0-0.7) k/uL Basophils # 0.0 (0-0.2) k/uL Sodium (137-145) mmol/L Potassium (3.5-5.1) mmol/L Chloride (98-107) mmol/L Carbon Dioxide (22-30) mmol/L Anion Gap mmol/L BUN (7-17) mg/dL Creatinine (0.52-1.04) mg/dL Est GFR (CKD-EPI)AfAm (>60 ml/min/1.73 sqM) Est GFR (CKD-EPI)NonAf (>60 ml/min/1.73 sqM) Glucose (74-99) mg/dL Calcium (8.4-10.2) mg/dL Total Bilirubin (0.2-1.3) mg/dL AST (14-36) U/L ALT (4-34) U/L Alkaline Phosphatase (38-126) U/L Total Protein (6.3-8.2) g/dL Albumin (3.5-5.0) g/dL HCG, Quant mIU/mL Urine Color Yellow Urine Appearance Cloudy H (Clear) Urine pH 6.5 (5.0-8.0) Ur Specific [place] 1.018 (1.001-1.035) Urine Protein 3+ H (Negative) Urine Glucose (UA) Negative (Negative) Urine Ketones Negative (Negative) Urine Blood Large H (Negative) Urine Nitrite Negative (Negative) Urine Bilirubin Negative (Negative) Urine Urobilinogen <2.0 (<2.0) mg/dL Ur Leukocyte Esterase Small H (Negative) Urine RBC 35 H (0-5) /hpf Urine WBC 11 H (0-5) /hpf Ur Squamous Epith Cells 2 (0-4) /hpf Urine Bacteria Rare H (None) /hpf Hyaline Casts 5 H (0-2) /lpf Urine Mucus Rare H (None) /hpf Urine HCG, Qual Detected (Not Detectd) 08/30/21 Range/Units 17:16 WBC (3.8-10.6) k/uL RBC (3.80-5.40) m/uL Hgb (11.4-16.0) gm/dL Hct (34.0-46.0) % MCV (80.0-100.0) fL MCH (25.0-35.0) pg MCHC (31.0-37.0) g/dL RDW (11.5-15.5) % Plt Count (150-450) k/uL MPV Neutrophils % % Lymphocytes % % Monocytes % % Eosinophils % % Basophils % % Neutrophils # (1.3-7.7) k/uL Lymphocytes # (1.0-4.8) k/uL Monocytes # (0-1.0) k/uL Eosinophils # (0-0.7) k/uL Basophils # (0-0.2) k/uL Sodium 132 L (137-145) mmol/L Potassium 3.6 (3.5-5.1) mmol/L Chloride 109 H (98-107) mmol/L Carbon Dioxide 23 (22-30) mmol/L Anion Gap 0 mmol/L BUN 14 (7-17) mg/dL Creatinine 0.74 (0.52-1.04) mg/dL Est GFR (CKD-EPI)AfAm >90 (>60 ml/min/1.73 sqM) Est GFR (CKD-EPI)NonAf >90 (>60 ml/min/1.73 sqM) Glucose 82 (74-99) mg/dL Calcium 7.9 L (8.4-10.2) mg/dL Total Bilirubin 0.2 (0.2-1.3) mg/dL AST 25 (14-36) U/L ALT 10 (4-34) U/L Alkaline Phosphatase 51 (38-126) U/L Total Protein 4.7 L (6.3-8.2) g/dL Albumin 2.4 L (3.5-5.0) g/dL HCG, Quant 4612.7 mIU/mL Urine Color Urine Appearance (Clear) Urine pH (5.0-8.0) Ur Specific [place] (1.001-1.035) Urine Protein (Negative) Urine Glucose (UA) (Negative) Urine Ketones (Negative) Urine Blood (Negative) Urine Nitrite (Negative) Urine Bilirubin (Negative) Urine Urobilinogen (<2.0) mg/dL Ur Leukocyte Esterase (Negative) Urine RBC (0-5) /hpf Urine WBC (0-5) /hpf Ur Squamous Epith Cells (0-4) /hpf Urine Bacteria (None) /hpf Hyaline Casts (0-2) /lpf Urine Mucus (None) /hpf Urine HCG, Qual (Not Detectd) Disposition Clinical Impression: Abdominal pain, Disposition: HOME SELF-CARE Instructions (If sedation given, give patient instructions): Abdominal Pain (ED), (ED), Urinary Tract Infection in (ED) Additional Instructions: His follow up with obstetrics, please have repeat lab testing done in 48 hours, please return with any worsening abdominal pain. Prescriptions: Cephalexin [Keflex] 500 mg PO Q12HR #14 cap Is patient prescribed a controlled substance at d/c from ED?: No Referrals: None,Stated [Primary Care Provider] - 1-2 days Elaine Delatorre DO [Doctor of Osteopathic Medicine] - 1-2 days Time of Disposition: 17:58
--- NOTE | 2021-08-30 17:00 | US ---
EXAMINATION TYPE: Ultrasound OB <= 14 week fetus DATE OF EXAM: 08/30/2021 4:23 PM COMPARISON: NONE CLINICAL HISTORY: 25-year-old female preg ab trauma. Elbow to stomach EXAM PERFORMED: Transabdominal (TA) FINDINGS: EXAM MEASUREMENTS: GESTATIONAL AGE / DATING Physician Established: Not yet established Dates by LMP: (4 weeks/4 days) EDC: 05/05/22 Dates by First Scan: No previous this is first scan Dates by Current Scan for: No IUP seen at this time MATERNAL ANATOMY Uterus: 7.4 x 4.6 x 4.5cm Right Ovary: 4.8 x 3.1 x 3.8cm Left Ovary: 2.6 x 1.1 x 1.2cm Post CDS / Adnexa: small amount of free fluid within the cul-de-sac Presence of free fluid: yes, mild Presence of corpus luteal cyst: yes, cystic area right ovary = 3.4 x 2.8 x 2.9cm . However, this show s a 1.6 cm internal nodule GESTATION / SURVEY IUP: No IUP seen at this time Date of LMP: 07/29/21 Beta HcG (if available): Not available at this time IMPRESSION: . 1. No visualized intrauterine . 2. There is a cystic lesion within the right adnexa measuring 3.4 cm. On some images, it appears to i nvolve the right ovary suggesting a corpus luteum. However, on one image, the supervisor in charge shows a 1.6 cm internal nodule. Retractile clot is possible in the setting of intracystic hemorrhage. Recommend serial beta-hCG and ultrasound follow-up to ensure the appearance of a normal intrauterine and to exclude the possibility of a right-sided ectopic . 3. Mild cul-de-sac free fluid likely physiologic.
[2021-08-30 17:22] LABS: Basophils % (A) 1 %; Eosinophils # (A) 0.1 k/uL (0-0.7); Eosinophils % (A) 1 %; HGB 11.8 gm/dL (11.4-16.0); Lymphocytes # (A) 1.9 k/uL (1.0-4.8); Lymphocytes % (A) 29 %; MCHC 34.6 g/dL (31.0-37.0); MCV 89.5 fL (80.0-100.0); Monocytes # (A) 0.2 k/uL (0-1.0); Monocytes % (A) 3 %; Neutrophils # (A) 4.1 k/uL (1.3-7.7); Neutrophils % (A) 64 %; Platelet Count 314 k/uL (150-450); RDW 12.5 % (11.5-15.5); WBC 6.4 k/uL (3.8-10.6)
[2021-08-30 17:31] LABS: ALT 10 U/L (4-34); AST 25 U/L (14-36); African American GFR (CKD) >90 (>60 ml/min/1.73 sqM); Albumin 2.4 g/dL (3.5-5.0); Alkaline Phosphatase 51 U/L (38-126); Anion Gap 0 mmol/L; Blood Urea Nitrogen 14 mg/dL (7-17); Calcium 7.9 mg/dL (8.4-10.2); Carbon Dioxide 23 mmol/L (22-30); Chloride 109 mmol/L (98-107); Glucose 82 mg/dL (74-99); Non-African American GFR(CKD) >90 (>60 ml/min/1.73 sqM); Potassium 3.6 mmol/L (3.5-5.1); Sodium 132 mmol/L (137-145); Total Bilirubin 0.2 mg/dL (0.2-1.3); Total Protein 4.7 g/dL (6.3-8.2)
[2021-08-30 17:47] LABS: HCG,Quantitative Serum 4612.7 mIU/mL
[2021-08-30 18:13] VITALS: BP 116/70; PULSE 73; RESP 16
== END 2021-08-30 18:13 | disposition home or self-care (01) ==
LOC: EC 14:30
DX: O99.619 Diseases of the digestive system complicating pregnancy, unspecified trimester (principal); R10.9 Unspecified abdominal pain; Z3A.00 Weeks of gestation of pregnancy not specified
CPT/HCPCS: 36415; 76801; 80053; 81001; 81025; 84702; 85025; 87086

== ENCOUNTER → 2021-09-02 | Outpatient (CLI) | payer OTHER | END | disposition home or self-care (01) | LOC: LABWHC1 09:00 | PROVIDERS: ATTEND Emergency Medicine | DX: O20.0 Threatened abortion (principal); Z3A.00 Weeks of gestation of pregnancy not specified | CPT/HCPCS: 36415; 84702 ==

== ENCOUNTER → 2021-09-20 | Outpatient (CLI) | payer OTHER ==
--- NOTE | 2021-09-20 08:17 | US ---
EXAMINATION TYPE: Transabdominal DATE OF EXAM: 09/20/2021 7:33 AM COMPARISON: Prior ultrasound August 30, 2021 CLINICAL HISTORY: O36.80X0 CONFIRM DATES. confirm dates. Positive beta-hCG. Prior abnormal ultrasound . EXAM PERFORMED: Transabdominal (TA) EXAM MEASUREMENTS: GESTATIONAL AGE / DATING Physician Established: Not yet established ( Dates by LMP: ( 7 weeks/4 days) EDC: 05/05/2022 Dates by First Scan: (4 weeks/4 days) EDC: 05/05/2022 Dates by Current Scan for: (7 weeks/3 days) EDC: 05/06/2022 MATERNAL ANATOMY Uterus: 7.5 x 6.7 x 7.3 cm Right Ovary: 3.7 x 2.8 x 2.6 cm Left Ovary: 3.0 x 1.2 x 2.0 cm Post CDS / Adnexa: wnl Presence of free fluid: no Presence of corpus luteal cyst: yes right side Presence of subchorionic bleed: no GESTATION / SURVEY CRL: 1.21 cm (7 weeks/3 days) Yolk Sac (normal less than 6mm): 3 mm Heart Rate: 151 bpm Rhythm: Normal IUP: Viable IUP Single live intrauterine gestation is now confirmed. No free fluid currently. Both ovaries seen without suspicious extraovarian adnexal mass. Corpus luteal cyst on the right ovary is felt present. IMPRESSION: Single live intrauterine gestation confirmed, mean crown-rump length 1.2 cm corresponding to 7 week 3 day old fetus
== END | disposition home or self-care (01) ==
LOC: RADUSWWP 07:07
PROVIDERS: ATTEND Obstetrics & Gynecology
DX: O34.11 Maternal care for benign tumor of corpus uteri, first trimester (principal); Z3A.01 Less than 8 weeks gestation of pregnancy
CPT/HCPCS: 76801

== ENCOUNTER 2022-01-28 20:59 | Outpatient (CLI) | payer OTHER ==
[2022-01-28 22:34] LABS: Appearance,Urine Cloudy (Clear); Bacteria,Urine Rare /hpf; Bilirubin,Urine Negative (Negative); Blood,Urine Moderate (Negative); Color,Urine Light Yellow; Glucose,Urine (UA) Negative (Negative); Hyaline Casts,Urine 4 /lpf (0-2); Ketones,Urine Negative (Negative); Leukocyte Esterase,Urine Negative (Negative); Mucus,Urine Rare /hpf; Nitrite,Urine Negative (Negative); PH, Urine 6.5 (5.0-8.0); Protein,Urine 3+ (Negative); RBC,Urine 8 /hpf (0-5); Specific Gravity,Urine 1.016 (1.001-1.035); Squamous Epithelial Cell,Urine 3 /hpf (0-4); Urobilinogen,Urine <2.0 mg/dL (<2.0); WBC,Urine 2 /hpf (0-5)
[2022-01-28 23:54] VITALS: BP 126/66; PULSE 100; RESP 16; TEMP 97.6
--- NOTE | 2022-02-06 09:51 | P.MSEPDOC ---
Presenting Problems - Arrival Data Date of Arrival on Unit: 01/28/22 Time of Arrival on Unit: 20:59 Mode of Transport: Ambulatory - Complaint OB-Reason for Admission/Chief Complaint: Vaginal Bleeding Medical History - Information : 3 Para: 1 Term: 1 : 0 Abortions: Spontaneous or Elective: 1 Number of Living Children: 1 - Gestational Age Gestational Age by JORDY (wks/days): 26 Weeks and 1 Days - History Complications: No Care Review of Systems - Review of Systems Constitutional: No problems Breast: No problems ENT: No problems Cardiovascular: No problems Respiratory: No problems Gastrointestinal: No problems Genitourinary: No problems Musculoskeletal: No problems Neurological: No problems Skin: No problems Vital Signs - Temperature Temperature: 97.6 F Temperature Source: Oral - Pulse Right Brachial Pulse Rate: 100 Pulse Assessment Method: Automatic Cuff - Respirations Respiratory Rate: 16 Oxygen Delivery Method: Room Air O2 Sat by Pulse Oximetry: 99 - Blood Pressure Right Arm Blood Pressure: 126/66 Blood Pressure Mean: 86 Blood Pressure Source: Automatic Cuff Medical Screen Scoring - Cervical Exam Dilation (cm): 1 Membranes: Intact - Assessment - Baby A Baseline FHR: 120 Heart Rate - NICHD Category: Category I (Normal) Physician Notification - Physician Notified Physician Notified Date: 01/28/22 Physician Notified Time: 21:26 Physician: Shoshana Pena Order Received: Yes - Notification Comment Comment: 2125- Dr. Pena called with report on patients complaints of dime sized spotting when wiping. FFN, U/A, and cervical exam. ordered. RN to call back with results. 2310- Dr. Pena called with report. heart tones category 1. Patient reports only. having back pain, denies contractions or anymore cramping. Cervical exam 1/thick/high,. RN able to palpate presenting part. FFN negative. Patient to be discharged home, must. follow up with Dr. Delatorre this week. Patient on pelvic rest and take time off work until. she sees Dr. Delatorre. Patient to be discharged home. Maternal Triage Index - Maternal Triage Index Presenting for scheduled procedure w/no complaint: No - Stat/Priority 1 Stat Priority 1: No - Urgent/Priority 2 Urgent Priority 2: No - Prompt/Priority 3 Prompt Priority 3: Yes Criteria Met for Priority 3: 26 1/7 SPOTTING WITH WIPING Disposition - Disposition OB Disposition: Admit Discharge Date: 01/28/22 Discharge Time: 23:15 I agree with the RN Medical Screening Exam: Yes Case reviewed; plan agreed upon as documented in EMR&OBIX.: Yes Diagnosis: LABOR WITHOUT DELIVERY, SECOND TRIMESTER
== END 2022-01-28 23:15 ==
LOC: FBPOP 20:59
PROVIDERS: ATTEND Obstetrics & Gynecology
DX: O60.02 Preterm labor without delivery, second trimester (principal); Z3A.26 26 weeks gestation of pregnancy; D69.9 Hemorrhagic condition, unspecified
CPT/HCPCS: 82731; 81001; G0463; 99213

== ENCOUNTER 2022-03-20 03:51 | Outpatient (CLI) | payer OTHER ==
[2022-03-20 05:08] VITALS: BP 120/64; PULSE 89; RESP 16; TEMP 97.7
--- NOTE | 2022-04-15 02:00 | P.MSEPDOC ---
Presenting Problems - Arrival Data Date of Arrival on Unit: 03/20/22 Time of Arrival on Unit: 03:51 Mode of Transport: Ambulatory - Complaint OB-Reason for Admission/Chief Complaint: Decreased Movement, Vaginal Bleeding Comment: Called and spoke with Dr. Delatorre. Patient. came in to triage with c/o spotting, , JORDY. 05/05/22, [place] [address] Delatorre. NST reactive,. Amnisure negative, No noticable bleeding with. cervical exam which was /-2. Asya 2-5 min,. patient is not uncomfortable with contractions just. feels them happening. Orders to discharge patient. home at this time. 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 Review of Systems - Review of Systems Constitutional: No problems Breast: No problems ENT: No problems Cardiovascular: No problems Respiratory: No problems Gastrointestinal: No problems Genitourinary: No problems Musculoskeletal: No problems Neurological: No problems Skin: No problems Vital Signs - Temperature Temperature: 97.7 F Temperature Source: Temporal Artery Scan - Pulse Pulse Oximetery Pulse Rate: 89 Pulse Assessment Method: Pulse Oximetry - Respirations Respiratory Rate: 16 Oxygen Delivery Method: Room Air O2 Sat by Pulse Oximetry: 95 - Blood Pressure Right Arm Blood Pressure: 120/64 Blood Pressure Mean: 82 Blood Pressure Source: Automatic Cuff Medical Screen Scoring - Cervical Exam Dilation (cm): 1 Effacement (%): 50 Station: -2 Membranes: Intact - Uterine Contractions Frequency From (mins): 2 Frequency To (mins): 5 Duration From (seconds): 50 Duration To (seconds): 60 Intensity: Mild Resting: Soft to palpation - Assessment - Baby A Baseline FHR: 130 Heart Rate - NICHD Category: Category I (Normal) NST: Reactive Physician Notification - Physician Notified Physician Notified Date: 03/20/22 Physician Notified Time: 04:38 Physician: Dr. Delatorre New Order Received: Yes - Notification Comment Comment: Called and spoke with Dr. Delatorre. Patient. came in to triage with c/o spotting, , JORDY. 05/05/22, [place] 33.[address] Delatorre. NST reactive,. Amnisure negative, No noticable bleeding with. cervical exam which was 50/-2. Asya 2-5 min,. patient is not uncomfortable with contractions just. feels them happening. Orders to discharge patient. home at this time. Maternal Triage Index - Maternal Triage Index Presenting for scheduled procedure w/no complaint: No - Stat/Priority 1 Stat Priority 1: No - Urgent/Priority 2 Urgent Priority 2: Yes Provider Notified: Dr. Delatorre Provider Notified Time: 04:38 Criteria Met for Priority 2: <34 weeks c/o spotting - Prompt/Priority 3 Prompt Priority 3: No - Non-Urgent/Priority 4 Non-Urgent Priority 4: No Disposition - Disposition OB Disposition: Discharge to home Discharge Date: 03/20/22 Discharge Time: 04:47 I agree with the RN Medical Screening Exam: Yes Case reviewed; plan agreed upon as documented in EMR&OBIX.: Yes Diagnosis: DECREASED MOVEMENTS, THIRD TRIMESTER, FETUS 1
== END 2022-03-20 04:47 | disposition home or self-care (01) ==
LOC: FBPOP 03:51
PROVIDERS: ATTEND Obstetrics & Gynecology
DX: O36.8131 Decreased fetal movements, third trimester, fetus 1 (principal); Z3A.33 33 weeks gestation of pregnancy
CPT/HCPCS: 59025; 84112; G0463; 99213

== ENCOUNTER 2022-04-03 13:40 | Outpatient (CLI) | payer OTHER ==
[2022-04-03 15:11] VITALS: BP 118/72; PULSE 105; RESP 18; TEMP 98.1
--- NOTE | 2022-04-04 08:00 | P.MSEPDOC ---
Presenting Problems - Arrival Data Date of Arrival on Unit: 04/03/22 Time of Arrival on Unit: 13:40 Mode of Transport: Ambulatory - Complaint OB-Reason for Admission/Chief Complaint: Pain Comment: upper right abd pain. Comes on with activity and last 30-40mins. Medical History - Information : 2 Para: 1 Term: 1 : 0 Abortions: Spontaneous or Elective: 0 Number of Living Children: 1 - Gestational Age Gestational Age by JORDY (wks/days): 35 Weeks and 3 Days Review of Systems - Review of Systems Constitutional: No problems Breast: No problems ENT: No problems Cardiovascular: No problems Respiratory: No problems Gastrointestinal: No problems Genitourinary: No problems Musculoskeletal: No problems Neurological: No problems Skin: No problems Vital Signs - Temperature Temperature: 98.1 F Temperature Source: Temporal Artery Scan - Pulse Right Pulse Oximetery Pulse Rate: 105 Pulse Assessment Method: Pulse Oximetry - Respirations Respiratory Rate: 18 Oxygen Delivery Method: Room Air O2 Sat by Pulse Oximetry: 99 - Blood Pressure Right Arm Blood Pressure: 118/72 Blood Pressure Mean: 87 Blood Pressure Source: Automatic Cuff Medical Screen Scoring - Uterine Contractions Frequency From (mins): 7 Frequency To (mins): 8 Duration From (seconds): 90 Duration To (seconds): 110 Intensity: Mild Resting: Soft to palpation - Assessment - Baby A Baseline FHR: 130 Heart Rate - NICHD Category: Category I (Normal) NST: Reactive Physician Notification - Physician Notified Physician Notified Date: 04/03/22 Physician Notified Time: 14:17 Physician: Kvng Espinoza New Order Received: Yes (discharge home with follow up instructions.) Maternal Triage Index - Maternal Triage Index Presenting for scheduled procedure w/no complaint: No - Stat/Priority 1 Stat Priority 1: No - Urgent/Priority 2 Urgent Priority 2: No - Prompt/Priority 3 Prompt Priority 3: No - Non-Urgent/Priority 4 Non-Urgent Priority 4: Yes Criteria Met for Priority 4: upper right abd pain, starting 2 days ago while at work and moving a pt. Disposition - Disposition OB Disposition: Discharge to home Discharge Date: 04/03/22 Discharge Time: 14:17 I agree with the RN Medical Screening Exam: Yes Case reviewed; plan agreed upon as documented in EMR&OBIX.: Yes Diagnosis: FALSE LABOR BEFORE 37 COMPLETED WEEKS OF GEST, THIRD TRI
== END 2022-04-03 14:21 | disposition home or self-care (01) ==
LOC: FBPOP 13:40
PROVIDERS: ATTEND Obstetrics & Gynecology
DX: O47.03 False labor before 37 completed weeks of gestation, third trimester (principal); Z3A.35 35 weeks gestation of pregnancy
CPT/HCPCS: 59025; G0463; 99213

== ENCOUNTER 2022-04-07 14:07 | Outpatient (CLI) | payer OTHER ==
--- NOTE | 2022-04-07 17:08 | US ---
EXAMINATION TYPE: US OB BPP wo non-stress DATE OF EXAM: 04/07/2022 COMPARISON: US CLINICAL HISTORY: 08/21 BPP at office mom has history of Alport Syndro. 08/21 BPP -2 hours prior to exam at Dr's office/ RN states office gave 0 points for breathing TECHNIQUE: Transabdominal (TA). Scoring by the pot runner during real-time assessment. FINDINGS: BPP PARAMETERS: PRESENTATION: Vertex HEART RATE: 125 bpm RHYTHM: Normal SHARITA: 15.0 DIAPHRAGM IMAGED: Yes BPP SCORIN. Breathin (1 episode of breathing of 30 second duration in 30 minutes of scanning time) 2. Movement: 2 (at least 3 discrete body movements in 30 minutes) 3. Tone: 2 (1 episode of active flexion/extension of limb) 4. SHARITA: 2 (SHARITA index > 5cm) COMMUNICATIONS PROJECT MANAGER NOTES: IMPRESSION: TOTAL SCORE: 6 / 8 Incidental finding dilated left renal pelvis= 0.5 cm Results given to L&D at time of exam
[2022-04-07 17:23] VITALS: BP 114/71; PULSE 85; RESP 16; TEMP 98.3
--- NOTE | 2022-04-09 12:52 | P.MSEPDOC ---
Presenting Problems - Arrival Data Date of Arrival on Unit: 04/07/22 Time of Arrival on Unit: 14:07 Mode of Transport: Ambulatory - Complaint OB-Reason for Admission/Chief Complaint: NST, Other Comment: pt sent over from office for prolong monitoring NST and BPP AROUND 4- 5PM. 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 and has history of Alport Syndrome and had a BPP at office and scored 6/8 so pt sent to unit with orders Medical History - Information : 2 Para: 1 Term: 1 : 0 Abortions: Spontaneous or Elective: 0 Number of Living Children: 1 - Gestational Age Gestational Age by JORDY (wks/days): 36 Weeks and 0 Days Review of Systems - Review of Systems Constitutional: No problems Breast: No problems ENT: No problems Cardiovascular: No problems Respiratory: No problems Gastrointestinal: No problems Genitourinary: No problems Musculoskeletal: No problems Neurological: No problems Skin: No problems Vital Signs - Temperature Temperature: 98.3 F Temperature Source: Oral - Pulse Right Brachial Pulse Rate: 85 Pulse Assessment Method: Automatic Cuff - Respirations Respiratory Rate: 16 Oxygen Delivery Method: Room Air O2 Sat by Pulse Oximetry: 100 - Blood Pressure Right Arm Blood Pressure: 114/71 Blood Pressure Mean: 85 Blood Pressure Source: Automatic Cuff Medical Screen Scoring - Cervical Exam Membranes: Intact - Uterine Contractions Frequency From (mins): 2 Frequency To (mins): 5 Duration From (seconds): 40 Duration To (seconds): 45 Intensity: Mild Resting: Soft to palpation - Assessment - Baby A Baseline FHR: 120 Heart Rate - NICHD Category: Category I (Normal) NST: Reactive Physician Notification - Physician Notified Physician Notified Date: 04/07/22 Physician Notified Time: 16:45 Physician: Dr Delatorre New Order Received: Yes - Notification Comment Comment: reactive NST pt feeling movement. v/s stable. BPP 6/8.PT having mild contractions 2-3 minutes apart lasting 40*45 seconds pt has a reactive OCT. Dr Delatorre called and new orders receied to discharge pt hae her return tomorrow for a NST Maternal Triage Index - Maternal Triage Index Presenting for scheduled procedure w/no complaint: Yes - Scheduled/Requesting Priority 5 Scheduled/Requesting Priority 5: Yes Criteria Met for Priority 5: Pt presented from the office with a order for a NST and BPP and prolong monitoring Disposition - Disposition OB Disposition: Discharge to home Discharge Date: 04/07/22 Discharge Time: 17:09 I agree with the RN Medical Screening Exam: Yes Case reviewed; plan agreed upon as documented in EMR&OBIX.: Yes Diagnosis: ALPORT SYNDROME
== END 2022-04-07 17:09 | disposition home or self-care (01) ==
LOC: FBPOP 14:07
PROVIDERS: ATTEND Obstetrics & Gynecology
DX: Q87.81 Alport syndrome (principal)
CPT/HCPCS: 59025; 76819; G0463; 99213

== ENCOUNTER 2022-04-08 09:03 | Outpatient (CLI) | payer OTHER ==
--- NOTE | 2022-04-08 10:33 | US ---
EXAMINATION TYPE: US OB BPP wo non-stress DATE OF EXAM: 04/08/2022 COMPARISON: NONE CLINICAL HISTORY: 26-year-old female Repeat BPP, 08/21 BPP yesterday. TECHNIQUE: Transabdominal (TA). Scoring by the solar energy system installer helper during real-time assessment. FINDINGS: BPP PARAMETERS: PRESENTATION: vertex HEART RATE: 132 bpm RHYTHM: Normal SHARITA: 14.4 BPP SCORIN. Breathin (1 episode of breathing of 30 second duration in 30 minutes of scanning time) 2. Movement: 3 (at least 3 discrete body movements in 30 minutes) 3. Tone: 2 (1 episode of active flexion/extension of limb) 4. SHARITA: 2 (SHARITA index > 5cm) IMPRESSION: TOTAL SCORE: 8 / 8. Short interval follow-up as clinically indicated to reassess the 5 mm of left-sided renal pelviectasi s seen yesterday. Not assessed on today's exam.
[2022-04-08 10:48] VITALS: BP 128/62; PULSE 83; RESP 16; TEMP 97.5
--- NOTE | 2022-04-09 12:51 | P.MSEPDOC ---
Presenting Problems - Arrival Data Date of Arrival on Unit: 04/08/22 Time of Arrival on Unit: 09:03 Mode of Transport: Ambulatory - Complaint OB-Reason for Admission/Chief Complaint: NST Comment: Pt presents to triage for repeat NST. Pt was in triage yesterday for BPP - Dr. Delatorre requested pt return today for a repeat NST. BPP 6 out of 8 Medical History - Information : 3 Para: 1 Term: 1 : 0 Abortions: Spontaneous or Elective: 1 Number of Living Children: 1 - Gestational Age Gestational Age by JORDY (wks/days): 36 Weeks and 1 Days Review of Systems - Review of Systems Constitutional: No problems Breast: No problems ENT: No problems Cardiovascular: No problems Respiratory: No problems Gastrointestinal: No problems Genitourinary: No problems Musculoskeletal: No problems Neurological: No problems Skin: No problems Vital Signs - Temperature Temperature: 97.5 F Temperature Source: Temporal Artery Scan - Pulse Pulse Oximetery Pulse Rate: 83 Pulse Assessment Method: Pulse Oximetry - Respirations Respiratory Rate: 16 Oxygen Delivery Method: Room Air O2 Sat by Pulse Oximetry: 100 - Blood Pressure Right Arm Blood Pressure: 128/62 Blood Pressure Mean: 84 Blood Pressure Source: Automatic Cuff Medical Screen Scoring - Uterine Contractions Frequency From (mins): 2 Frequency To (mins): 3 Duration From (seconds): 40 Duration To (seconds): 50 Intensity: Mild Resting: Soft to palpation - Assessment - Baby A Baseline FHR: 130 Heart Rate - NICHD Category: Category I (Normal) NST: Reactive Physician Notification - Physician Notified Physician Notified Date: 04/08/22 Physician Notified Time: 09:38 Physician: Elaine Delatorre New Order Received: Yes - Notification Comment Comment: RN spoke with Dr. Delatorre regarding repeat NST. Reported reactive NST, contx every 2 to 3 minutes apart which pt is rating a 6 out of 10, maternal vital signs WNL. Order received for a repeat BPP. At 1030, Reported BPP 8 out of 8, sallie 1 FHT, contx pattern and maternal vital signs. Orders received to discharge pt home and pt to keep follow up appt with Dr. Delatorre next week. Maternal Triage Index - Maternal Triage Index Presenting for scheduled procedure w/no complaint: No - Stat/Priority 1 Stat Priority 1: No - Urgent/Priority 2 Urgent Priority 2: No - Prompt/Priority 3 Prompt Priority 3: No - Non-Urgent/Priority 4 Non-Urgent Priority 4: No - Scheduled/Requesting Priority 5 Scheduled/Requesting Priority 5: Yes Criteria Met for Priority 5: Procedure scheduled informally with the unit before the patient's arrival - repeat NST and BPP from yesterday per Dr. Delatorre Disposition - Disposition OB Disposition: Discharge to home, Written follow up instructions reviewed Discharge Date: 04/08/22 Discharge Time: 10:36 I agree with the RN Medical Screening Exam: Yes Case reviewed; plan agreed upon as documented in EMR&OBIX.: Yes Diagnosis: ALPORT SYNDROME
== END 2022-04-08 10:36 | disposition home or self-care (01) ==
LOC: FBPOP 09:03
PROVIDERS: ATTEND Obstetrics & Gynecology
DX: Q87.81 Alport syndrome (principal); Z3A.36 36 weeks gestation of pregnancy
CPT/HCPCS: 59025; 76819; G0463; 99213

== ENCOUNTER 2022-04-12 21:55 | Outpatient (CLI) | payer OTHER ==
[2022-04-12 23:42] VITALS: BP 119/74; PULSE 104; RESP 18; TEMP 97.6
--- NOTE | 2022-04-13 08:25 | P.MSEPDOC ---
Presenting Problems - Arrival Data Date of Arrival on Unit: 04/12/22 Time of Arrival on Unit: 21:55 Mode of Transport: Ambulatory - Complaint OB-Reason for Admission/Chief Complaint: Other Comment: Pt presents with c/o abdominal and lower back cramping Medical History - Information : 3 Para: 1 Term: 1 : 0 Abortions: Spontaneous or Elective: 1 Number of Living Children: 1 - Gestational Age Gestational Age by JORDY (wks/days): 36 Weeks and 5 Days - History Complications: Other Comment: Circumvallate placenta Review of Systems - Review of Systems Constitutional: No problems Breast: No problems ENT: No problems Cardiovascular: No problems Respiratory: No problems Gastrointestinal: No problems Genitourinary: No problems Musculoskeletal: No problems Neurological: No problems Skin: No problems Vital Signs - Temperature Temperature: 97.6 F Temperature Source: Temporal Artery Scan - Pulse Pulse Oximetery Pulse Rate: 104 Pulse Assessment Method: Pulse Oximetry - Respirations Respiratory Rate: 18 Oxygen Delivery Method: Room Air O2 Sat by Pulse Oximetry: 95 - Blood Pressure Right Arm Blood Pressure: 119/74 Blood Pressure Mean: 89 Blood Pressure Source: Automatic Cuff Medical Screen Scoring - Cervical Exam Dilation (cm): 3 Effacement (%): 60 Station: -3 Membranes: Intact - Uterine Contractions Intensity: Mild Resting: Soft to palpation - Assessment - Baby A Baseline FHR: 120 Heart Rate - NICHD Category: Category I (Normal) NST: Reactive Physician Notification - Physician Notified Physician Notified Date: 04/12/22 Physician Notified Time: 22:27 Physician: Kvng Espinoza - Notification Comment Comment: Notified of pt complaints, maternal status, G/P, GA, Cervical check, reactive NST, contraction pattern. Orders to discharge home if no cervical change. Maternal Triage Index - Non-Urgent/Priority 4 Non-Urgent Priority 4: Yes Criteria Met for Priority 4: reactive NST, irregular contractions, no cervical change after 1 hour. Disposition - Disposition OB Disposition: Discharge to home Discharge Date: 04/12/22 Discharge Time: 23:28 I agree with the RN Medical Screening Exam: Yes Case reviewed; plan agreed upon as documented in EMR&OBIX.: Yes Diagnosis: FALSE LABOR BEFORE 37 COMPLETED WEEKS OF GEST, THIRD TRI
== END 2022-04-12 23:28 | disposition home or self-care (01) ==
LOC: FBPOP 21:55
PROVIDERS: ATTEND Obstetrics & Gynecology
DX: O47.03 False labor before 37 completed weeks of gestation, third trimester (principal); Z3A.36 36 weeks gestation of pregnancy
CPT/HCPCS: 59025; G0463; 99213